=== PATIENT | female | born 1965 | race Caucasian/White ===

== ENCOUNTER → 2017-05-04 15:02 | Outpatient (POV) | payer OTHER, SELFPAY | PROVIDERS: Family Provider Family Medicine; PCP Family Medicine; Visit Provider Dermatology | DX: Z00.00 Encounter for general adult medical examination without abnormal findings (principal) ==

== ENCOUNTER → 2017-07-14 07:50 | Outpatient (CLI) | payer OTHER, SELFPAY ==
[2017-07-14 10:13] LABS: Creatine Kinase 66 U/L (26-192)
[2017-07-14 11:37] LABS: Erythrocyte Sedimentation Rate 8 mm/hr (0-30)
[2017-07-16 06:28] LABS: Deamidated Gliadin Abs, IgA 26 units (0-19); Deamidated Gliadin Abs, IgG 3 units (0-19); Folate 17.6 ng/mL (>3.0); Tissue Transglutaminase IgA Ab <2 U/mL (0-3); Tissue Transglutaminase IgG Ab <2 U/mL (0-5); Vitamin B12 608 pg/mL (232-1245)
[2017-07-18 15:15] LABS: Endomysial IgA Antibody Negative (Negative); Saccharomyces cerevisiae, IgA <20.0 Units (0.0-24.9); Saccharomyces cerevisiae, IgG 25.8 Units (0.0-24.9)
[2017-07-18 15:16] LABS: Antinuclear Antibodies, IFA Negative (.)
[2017-07-20 06:30] LABS: Reticulin IgA Antibody Negative titer (Neg:<1:2.5)
[2017-07-20 13:31] LABS: HLA-B27 Negative (.)
== END ==
PROVIDERS: Visit Provider Internal Medicine Rheumatology
DX: K59.00 Constipation, unspecified (principal); M25.50 Pain in unspecified joint; M79.7 Fibromyalgia; R53.83 Other fatigue
CPT/HCPCS: 36415; 82550; 82607; 82652; 82746; 83516; 85651; 86038; 86255; 86256; 86671; 86812

== ENCOUNTER → 2017-07-21 13:22 | Outpatient (CLI) | payer OTHER, SELFPAY ==
--- NOTE | 2017-07-21 | XR_ITS ---
XR sacroiliac joint BI min 3V CLINICAL INDICATION: ITS.REASON: BILATERAL PAIN ORDERING PHYSICIAN: Fransisca Lewis PATIENT AGE: 51 years Comparison: None FINDINGS: The SI joints have an unremarkable appearance. No evidence of effusion, sclerosis, or lytic lesion. IMPRESSION: Negative SI joints
== END ==
PROVIDERS: PCP Family Medicine; Visit Provider Internal Medicine Rheumatology
DX: M54.9 Dorsalgia, unspecified (principal)
CPT/HCPCS: 72202

== ENCOUNTER → 2018-02-08 15:24 | Outpatient (CLI) | payer OTHER, SELFPAY ==
[2018-02-11 05:33] LABS: Vitamin D 25 Hydroxy 18.9 ng/mL (30.0-100.0)
[2018-02-11 05:34] LABS: Estradiol 44.6 pg/mL (.); LH 36.6 mIU/mL (.)
== END ==
PROVIDERS: Visit Provider Nurse Practitioner Obstetrics & Gynecology
DX: R53.82 Chronic fatigue, unspecified (principal); Z01.419 Encounter for gynecological examination (general) (routine) without abnormal findings
CPT/HCPCS: 36415; 82652; 82670; 83001; 83002

== ENCOUNTER 2018-03-09 15:00 | Outpatient (RCR) | payer OTHER, SELFPAY ==
--- NOTE | 2018-01-05 16:38 | HMH.OTOPEV ---
OT Inpatient Evaluation Rehab OT Outpatient Eval Start: 01/05/18 16:17 Freq: Status: Active Protocol: Document 01/05/18 16:17 RMIRVIN (Rec: 01/05/18 16:37 [id number] Electronically Signed By Marino Espinoza OT 01/05/18 16:17 Outpatient Therapy Subjective History Subjective History Pt seen this date for initial evaluation to right thumb. Pt began having pain in 2014 and was soon diagnosed with CMC joint arthritis. Pt continues to have pain, decreased strength, and decreased AROM of right thumb. Pt is right hand dominant and has a decreased link trainer strength compared to left/non dominant hand. Pt has received injections at cmc joint in previous years, but does not feel the injections have helped symptoms. Pt will continue to be seen in order to address these deficits to increase functional use of right hand/thumb. Chief Complaint Pain Stiff Weakness Decreased Corporation Officer Strength Symptom Type Ache Throb Sharp Stabbing Burning Tingling Shooting Symptoms Relieved By Nothing Symptoms Aggravated By Physical Activity Lifting Prior Functional Limitations None Current Functional Limitations Lifting Housework Driving Sleeping Recreation Activity Symptom Description Constant but Variable Level of pain today (0-10) 4 Pain scale - at its best (0-10) 2 Pain scale - at its worst (0-10) 8 Wrist/Hand Eval Thumb Range of Motion Right Thumb Metacarpophalangeal Flexion Active 50 degrees Range of Motion (degrees) Thumb Metacarpophalangeal Extension 0 degrees Active Range of Motion (degrees) Thumb Palmar Abduction (Carpometacarpal 60 degrees Flex) Active Range (degrees) Thumb Interphalangeal Flexion Active 85 degrees Range of Motion (degrees) Thumb Interphalangeal Extension Active
== END 2018-03-09 15:05 | disposition home or self-care (01) ==
LOC: OT 15:00
PROVIDERS: Visit Provider Orthopaedic Surgery
DX: M25.541 Pain in joints of right hand (principal)
CPT/HCPCS: 97014; 97018; 97035; 97110; 97140; 97165; G0283

== ENCOUNTER → 2018-05-08 16:45 | Outpatient (CLI) | payer OTHER, SELFPAY ==
--- NOTE | 2018-05-08 16:51 | XR_ITS ---
EXAM: XR cervical spine 5V HISTORY: ITS.REASON: NECK PAIN ORDERING PHYSICIAN: Yenifer Dillard PATIENT AGE: 52 years COMPARISON: None FINDINGS: Normal alignment. No fracture or dislocation. No lytic or blastic change. There is mild degenerative disc disease at C4-C5 and C5-C6. Mild foraminal narrowing is present on the left at C6-C7. No cervical rib. IMPRESSION: Mild degenerative disc disease C4-C5 and C5-C6 with mild left-sided foraminal narrowing at C6-7
== END ==
PROVIDERS: PCP Family Medicine; Visit Provider Nurse Practitioner Family
DX: M54.2 Cervicalgia (principal)
CPT/HCPCS: 72050

== ENCOUNTER → 2018-05-24 15:07 | Outpatient (CLI) | payer OTHER, SELFPAY ==
--- NOTE | 2018-05-24 15:09 | MR_ITS ---
MR cervical spine wo/w con, MR 3-d myelogram/MRCP HISTORY: Neck pain and numbness ITS.REASON: NECK PAIN ORDERING PHYSICIAN: Yenifer Dillard PATIENT AGE: 52 years Comparison: 10/23/2015 TECHNIQUE: Standard multiplanar multiecho sequences are performed without contrast. 3-D MIP and myelographic images are also rendered and reviewed FINDINGS: There is normal alignment. The craniocervical junction has an unremarkable appearance. There is straightening of the cervical lordosis which may be due to patient positioning or muscle spasm. C2-C3: Unremarkable. C3-C4: There is a small broad-based central/left paracentral disc protrusion as before. There is borderline narrowing of the canal at 10 mm without cord flattening or impingement. C4-C5: Mild degenerative disc disease with bulging disc. There is a broad-based central left paracentral and foraminal disc protrusion with narrowing of the canal at 10 mm and mild left lateral recess and foraminal narrowing. No flattening of the cord and no significant change. C5-C6: Mild degenerative disc disease with mild concentric bulging disc. C6-C7: Degenerative disc disease. There is a small left paracentral disc protrusion with narrowing of the canal and left lateral recess and foraminal narrowing. This may be slightly more prominent on today's exam than when compared to the previous study. C7-T1: Unremarkable. There is a 1.5 cm lesion once again noted involving the T2 vertebral body is slightly hyperintense on T1 with central hypointensity on T1 and is hyperintense on T2 with central hypointense T2 signal. This is similar when compared to the previous study. This does demonstrate contrast enhancement and may be related to a hemangioma. This involves the central left aspect of the vertebral body. IMPRESSION: 1. Small broad-based central/left paracentral disc protrusion at C3-C4 with narrowing of the canal not significant changed 2. Broad-based central left paracentral foraminal disc protrusion at C4-C5 with narrowing of the canal not significant changed 3. Small left paracentral disc protrusion at C6-C7 which may be slightly more prominent 4 no change in the T1 and T2 hyperintense lesion at the T2 vertebral body consistent with a hemangioma
--- NOTE | 2018-05-24 16:03 | HMH.ITSHM ---
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 []TRINTELLIX TREIMET POTASSIUM
== END ==
PROVIDERS: PCP Family Medicine; Visit Provider Nurse Practitioner Family
DX: M54.2 Cervicalgia (principal)
CPT/HCPCS: 72141; 72156; 76376; A9576

== ENCOUNTER 2018-08-15 16:30 | Outpatient (RCR) | payer OTHER, SELFPAY ==
--- NOTE | 2018-05-25 16:44 | HMH.PTOPEV ---
PT Outpatient Evaluation Rehab PT Outpatient Evaluation Start: 05/25/18 16:04 Freq: Status: Active Protocol: Document 05/25/18 16:32 ESAU (Rec: 05/25/18 16:43 ESAU [id number]) Electronically Signed By Aníbal Baker, PT 05/25/18 16:32 Outpatient Therapy Subjective History Subjective History Patient is a 52 year old female presenting to outpatient PT with reports of chronic cervical spine pain of insidous onset starting approx 15 years ago that has progressively gotten worse over the past 2 months. Most recent diagnostics indicate C 3/4,4/5 and 6/7 disc bulges. Main complaint is aching/ numbness about CT junction migrating to the L side and up to sub-occipital mm. Pt reports hx of fibromyalgia and recent knee surgery. Chief Complaint Pain Spasms Paresthesia Symptom Type Ache Numbness Shooting Symptoms Relieved By Heat Symptoms Aggravated By Physical Activity Lifting Prior Functional Limitations None Current Functional Limitations Reaching Lifting Housework Desk Work/Reading Sleeping Recreation Activity Symptom Description Constant but Variable Level of pain today (0-10) 5 Pain scale - at its best (0-10) 2 Pain scale - at its worst (0-10) 5 Cervical Eval Palpation Cervical Muscles L Cervical Paraspinal L Suboccipital R CT Junction L CT Junction L Upper Trapezius L Thoracic Paraspinals Cervical/Thoracic Palpation Findings Tenderness Posture Head/C-Spine Posture Sitting Position C-Spine Flattened Flexibility Deficits Upper Trapezius Muscle Length (R) Mild Tightness (L) Mild Tightness Levaetor Scapulae Muscle Length (R) Mild Tightness (L) Mild Tightness Scalene Group Muscle Length (R) Mild Tightness (L) Mild Tightness Pectoralis Minor Muscle Length (R) Mild Tightness
--- NOTE | 2018-07-11 15:59 | HMH.PTOPEV ---
PT Outpatient Evaluation Rehab PT Outpatient Evaluation Start: 05/25/18 16:04 Freq: Status: Active Protocol: Document 05/25/18 16:32 ESAU (Rec: 05/25/18 16:43 ESAU [id number]) Electronically Signed By Aníbal Baker, PT 05/25/18 16:32 Outpatient Therapy Subjective History Subjective History Patient is a 52 year old female presenting to outpatient PT with reports of chronic cervical spine pain of insidous onset starting approx 15 years ago that has progressively gotten worse over the past 2 months. Most recent diagnostics indicate C 3/4,4/5 and 6/7 disc bulges. Main complaint is aching/ numbness about CT junction migrating to the L side and up to sub-occipital mm. Pt reports hx of fibromyalgia and recent knee surgery. Chief Complaint Pain,Spasms,Paresthesia Symptom Type Ache,Numbness,Shooting Symptoms Relieved By Heat Symptoms Aggravated By Physical Activity,Lifting Prior Functional Limitations None Current Functional Limitations Reaching,Lifting,Housework, Desk Work/Reading,Sleeping, Recreation Activity Symptom Description Constant but Variable Level of pain today (0-10) 5 Pain scale - at its best (0-10) 2 Pain scale - at its worst (0-10) 5 Cervical Eval Palpation Cervical Muscles L Cervical Paraspinal,L Suboccipital,R CT Junction,L CT Junction,L Upper Trapezius, L Thoracic Paraspinals Cervical/Thoracic Palpation Findings Tenderness Posture Head/C-Spine Posture Sitting Position C-Spine Flattened Flexibility Deficits Upper Trapezius Muscle Length (R) Mild Tightness,(L) Mild Tightness Levaetor Scapulae Muscle Length (R) Mild Tightness,(L) Mild Tightness Scalene Group Muscle Length (R) Mild Tightness,(L) Mild Tightness Pectoralis Minor Muscle Length (R) Mild Tightness,(L) Mild Tightness Passive Joint Mobility Cervical PIVM WNL: R OA L OA R AA L AA R C2/3 L C2/3
== END 2018-08-15 16:35 | disposition home or self-care (01) ==
LOC: PT 16:30
PROVIDERS: Visit Provider Nurse Practitioner Family
DX: M54.2 Cervicalgia (principal)
CPT/HCPCS: 97010; 97012; 97014; 97035; 97110; 97140; 97163; 97164; G0283

== ENCOUNTER → 2018-08-22 14:57 | Outpatient (CLI) | payer OTHER, SELFPAY ==
[2018-08-24 17:11] LABS: Measles Antibodies, IgG 36.4 AU/mL (Immune >29.9); Rubella Antibodies, IgG 4.88 index (Immune >0.99)
== END ==
PROVIDERS: Visit Provider Family Medicine
DX: Z01.84 Encounter for antibody response examination (principal)
CPT/HCPCS: 36415; 86735; 86762; 86765

== ENCOUNTER → 2018-09-20 12:54 | Outpatient (POV) | payer OTHER, SELFPAY | PROVIDERS: Visit Provider Neurological Surgery | DX: Z00.00 Encounter for general adult medical examination without abnormal findings (principal) ==

== ENCOUNTER → 2018-10-31 15:29 | Outpatient (CLI) | payer OTHER, SELFPAY ==
--- NOTE | 2018-10-31 15:31 | MR_ITS ---
PROCEDURE: MR HEAD/BRAIN WO CON CLINICAL INDICATION: OTHER HEADACHE SYNDROME Severe headache with visual disturbance COMPARISON: [facility] MRI-BRAIN WITH/WITHOUT from 04/16/2012 TECHNIQUE: Routine multiplanar multi echo sequences are performed without gadolinium enhancement. FINDINGS: No midline shift, mass effect, intracranial hemorrhage, or hydrocephalus is evident. No evidence of acute infarction. The the cerebellopontine angles, cerebellum, and brainstem are unremarkable. There is normal maravilla-white matter differentiation. The pituitary is somewhat prominent no mastoid effusion or sinus air-fluid level. And has a superior convex margin. This is not significantly changed compared to the previous exam. No obvious mass is evident. No compression upon the optic chiasm. The cranial cervical junction has an unremarkable appearance IMPRESSION: No acute finding with no significant change. Dictated by: Demond Maier MD 11/01/2018 11:19 Signed by: <Electronically signed by Demond Maier MD in [place]> 11/01/2018 11:19
== END ==
PROVIDERS: PCP Family Medicine; Visit Provider Specialist
DX: G44.89 Other headache syndrome (principal)
CPT/HCPCS: 70551

== ENCOUNTER → 2018-11-15 16:31 | Outpatient (CLI) | payer OTHER, SELFPAY ==
--- NOTE | 2018-11-15 16:32 | XR_ITS ---
PROCEDURE: XR KNEE LT 4V CLINICAL INDICATION: left knee pain COMPARISON: [id number] KNEE-4 OR 5 VIEWS-LT from 09/13/2016 FINDINGS: No fracture or dislocation. No lytic or blastic change. There is normal mineralization. There are osteoarthritic changes involving all 3 compartments greatest at the medial compartment and patellofemoral joint. There are osteophytes noted at the patella as well as the distal femur and proximal tibia. IMPRESSION: Osteoarthritis of the left knee overall not significantly changed Dictated by: Demond Maier MD 11/15/2018 17:19 Electronically signed by Demond Maier MD in [place] 11/15/2018 17:19
== END ==
PROVIDERS: PCP Family Medicine; Visit Provider Orthopaedic Surgery
DX: M25.562 Pain in left knee (principal)
CPT/HCPCS: 73564

== ENCOUNTER → 2018-12-19 15:45 | Outpatient (CLI) | payer OTHER, SELFPAY ==
[2018-12-19 17:19] LABS: T4 (Thyroxine) 10.4 ug/dl (4.7-13.3); Thyroid Stimulating Hormone 2.18 uIU/ml (0.358-3.740)
== END ==
PROVIDERS: Visit Provider Family Medicine
DX: E03.9 Hypothyroidism, unspecified (principal)
CPT/HCPCS: 36415; 84436; 84443

== ENCOUNTER → 2018-12-28 07:49 | Outpatient (CLI) | payer OTHER, SELFPAY ==
--- NOTE | 2018-12-28 07:51 | CT_ITS ---
PROCEDURE: CT HEART W CALCIUM SCORE CLINICAL HISTORY: screening COMPARISON: No exams were available for comparison TECHNIQUE: Axial images obtained with sagittal and coronal reformats. All CT scans at the facility use one or more dose reduction, viz: automated exposure control, ma/kV adjustment per patient size (including targeted exams where dose is matched to indication, i.e. head), or iterative reconstruction technique. FINDINGS: Coronary artery calcium score is 0. No identifiable calcific atherosclerotic plaque evident. Very low cardiovascular disease risk. Incidental findings include mild thickening of the pericardium. There is bowel interposition in the left upper abdomen posteriorly and medially. Fibrotic or atelectatic changes are present in the right lung base IMPRESSION: 1. No identifiable calcific plaque with very low cardiovascular disease risk. 2. Incidental findings as described above Dictated by: eDmond Maier MD 12/29/2018 07:27 Electronically signed by Demond Maier MD in [place] 12/29/2018 07:27
== END ==
PROVIDERS: PCP Family Medicine; Visit Provider Internal Medicine Cardiovascular Disease
DX: Z13.6 Encounter for screening for cardiovascular disorders (principal)
CPT/HCPCS: 75571

== ENCOUNTER → 2019-02-15 15:05 | Outpatient (CLI) | payer OTHER, SELFPAY ==
--- NOTE | 2019-02-15 15:07 | XR_ITS ---
PROCEDURE: XR HAND RT MIN 3V CLINICAL INDICATION: right hand/thumb pain COMPARISON: [id number] HAND-RT 3 VIEWS from 09/01/2016 FINDINGS: No fracture or dislocation. No lytic or blastic change. There is normal mineralization. Osteoarthritic changes are present at the 1st metacarpal-carpal joint and at the 1st interphalangeal joint. There is mild lateral subluxation of the 1st metacarpal and there are cystic changes at the trapezium laterally Other findings:None. IMPRESSION: Osteoarthritis otherwise negative Dictated by: Demond Maier MD 02/15/2019 15:21 Electronically signed by Demond Maier MD in [place] 02/15/2019 15:21
== END ==
PROVIDERS: PCP Family Medicine; Visit Provider Orthopaedic Surgery
DX: M79.644 Pain in right finger(s) (principal)
CPT/HCPCS: 73130

== ENCOUNTER → 2019-02-22 11:20 | Outpatient (CLI) | payer OTHER, SELFPAY ==
--- NOTE | 2019-02-22 11:20 | IR_ITS ---
PROCEDURE: IR ARTHROGRAPHY STERIOD INJECT CLINICAL INDICATION: right thumb injection Right thumb pain COMPARISON: XR HAND RT MIN 3V from 02/15/2019 FINDINGS: Single image is submitted with the C-arm with the needle tip overlying the proximal aspect the 1st metacarpal at the radiocarpal joint region. Fluoroscopy time is 6 seconds. IMPRESSION: First metacarpal-carpal joint injection fluoroscopy assistance Dictated by: Demond Maier MD 02/22/2019 15:01 Electronically signed by Demond Maier MD in [place] 02/22/2019 15:01
--- NOTE | 2019-02-22 13:54 | P.PCN_ITS ---
[facility] [place] Procedure Note Procedure Note:: Date of Procedure: 02/22/2019 Pre-procedure diagnosis: First CMC joint arthritis, right thumb Post-procedure diagnosis: First CMC joint arthritis, right thumb Procedure: Fluoroscopy-guided intraarticular corticosteroid injection first CMC joint, right thumb Performed by: Geo Luevano MD Guillotine Operator/s: none Anesthesia: None Estimated Blood Loss: none Procedure Note: The patient presented to the radiology department and was prepared for the right thumb injection under fluoroscopic guidance. The consent form was reviewed and signed by both myself and the patient; all questions were answered. The patient's right hand was placed on the fluoroscopy table. The right hand was prepped in the usual sterile fashion with multiple chlorhexidine sticks. Timeout was performed as per protocol. Next, the fluoro machine was brought in over the patient?s right hand and a picture taken to confirm adequate visualization of the first CMC joint. I donned a pair of sterile surgical gloves; the remainder of the procedure was performed in a sterile fashion. After localizing the CMC joint under fluoroscopic guidance, a 25G needle was used to to inject the joint. Using fluoro, it was confirmed that the needle is advanced into the first CMC joint. A combination of 1.5 mg of betamethasone and 1 mL of 0.5 percent Marcaine was then injected into the first carpometacarpal joint, under aseptic precautions. After completion of the procedure, the needle was withdrawn and a sterile Band-Aid was applied over the puncture site. Patient tolerated the procedure well and there were no immediate complications. Patient reported very good pain relief within a few minutes after the injection. Specimens: none Condition/Disposition: good / home Complications: none
== END ==
PROVIDERS: PCP Family Medicine; Visit Provider Orthopaedic Surgery
DX: M13.841 Other specified arthritis, right hand (principal)
CPT/HCPCS: 20600; 77002

== ENCOUNTER → 2019-08-23 15:17 | Outpatient (CLI) | payer OTHER, SELFPAY ==
[2019-08-23 16:17] LABS: Chloride 105 mmol/L (98-107); Potassium 4.8 mmoL/L (3.5-5.1); Sodium 137 mmol/L (136-145)
[2019-08-23 16:20] LABS: Alanine Aminotransferase 25 U/L (12-78); Albumin Level 4.1 g/dl (3.5-5.0); Albumin/Globulin Ratio 1.5 (1.1-1.8); Alkaline Phosphatase 70 U/L (38-126); Anion Gap 8.8 mEq/L (5-15); Aspartate Amino Transferase 30 U/L (14-36); Bilirubin,Total 0.4 mg/dl (0.2-1.3); Blood Urea Nitrogen 16 mg/dl (7-17); Calcium 8.8 mg/dl (8.4-10.2); Carbon Dioxide 28 mmol/L (22.0-30.0); Estimated Glomerular Filt Rate 87 ml/min (>60); GFR (African American) 105 ML/MIN (>60); Globulin 2.7 g/dL (1.3-3.2); Glucose 104 mg/dl (74-100); Total Protein,Serum 6.8 g/dl (6.3-8.2)
[2019-08-23 16:21] LABS: Magnesium 2.3 mg/dl (1.6-2.3)
[2019-08-23 16:53] LABS: Thyroid Stimulating Hormone 1.69 uIU/mL (0.465-4.68)
== END ==
PROVIDERS: Visit Provider Physician Assistant
DX: R25.2 Cramp and spasm (principal)
CPT/HCPCS: 36415; 80053; 83735; 84443

== ENCOUNTER 2019-09-04 16:00 | Outpatient (RCR) | payer OTHER, SELFPAY ==
--- NOTE | 2019-08-05 17:46 | HMH.PTOPEV ---
PT Outpatient Evaluation Rehab PT Outpatient Evaluation Start: 08/05/19 17:12 Freq: Status: Active Protocol: Document 08/05/19 17:18 KLEVERKENNETH (Rec: 08/05/19 17:46 KLEVERKENNETH [id number]) Electronically Signed By Apollo Gonzalez, AB 08/05/19 17:18 Outpatient Therapy Subjective History Subjective History This is the initial Physical Therapy evaluation for Marci Salamanca. Pt is a 53 y/o female referred to PT for c/o LBP and SIJ pain. Pt reprots pain began insidiously in mar/apr. Pt reports pain has steadily increased over the last several months due to inability to get massage, chiro, and yoga regularly 2ndary to COVID shutdowns. Pt reports pain is in lumbosacral area, in her sitting bones and in peritoneal area. Chief Complaint Pain,Spasms,Stiff Symptom Type Ache,Throb,Sharp,Dull,Stabbing ,Shooting Symptoms Relieved By Heat,OTC Meds Symptoms Aggravated By Sitting,Standing,Bending/ Stooping,Physical Activity Prior Functional Limitations None Current Functional Limitations Housework,Desk Work/Reading, Sleeping Symptom Description Constant but Variable Level of pain today (0-10) 5 Pain scale - at its best (0-10) 5 Pain scale - at its worst (0-10) 8 Lumbopelvic Eval Posture Thoracic Spine Posture Standing Position Flexible Scoliosis on (R) Lumbar Spine Posture Standing Position Flexible Scoliosis on (L) Assistive device Assistive Devices None / NA Palapation tenderness bilateral thoracic spinal tenderness Yes lumbar spinal tenderness Yes paraspinal tenderness Yes buttock tenderness Yes Lumbar/Sacral Palpation Findings Tenderness,Spasm,Muscle Guarding Accessory Movement L-spine Vertebrae Accessory Movements Central P/A [place],Right P/A that Elicit Symptoms [place],Left P/A [place] L2 bilateral L3 bilateral L4 bilateral L5 bilateral S1 bilateral Range of Motion Lumbar Spine Active Flexion Range of 55 w/ pain Motion (degrees) Lumbar Spine Active Extension Range of 15 Motion (degrees) Left Lumbar Spine Lateral Flexion Active 15 Range of Robert
== END 2019-09-04 16:05 | disposition home or self-care (01) ==
LOC: PT 16:00
PROVIDERS: PCP Family Medicine; Visit Provider Physician Assistant
DX: M54.5 Low back pain (principal)
CPT/HCPCS: 20560; 20561; 97010; 97014; 97035; 97110; 97140; 97163; G0283

== ENCOUNTER → 2019-11-22 08:13 | Outpatient (CLI) | payer OTHER, SELFPAY ==
[2019-11-22 09:58] LABS: Chloride 105 mmol/L (98-107)
[2019-11-22 09:59] LABS: Potassium 4.7 mmoL/L (3.5-5.1); Sodium 139 mmol/L (136-145)
[2019-11-22 10:01] LABS: Alanine Aminotransferase 24 U/L (12-78); Albumin Level 3.8 g/dl (3.5-5.0); Albumin/Globulin Ratio 1.5 (1.1-1.8); Alkaline Phosphatase 61 U/L (38-126); Aspartate Amino Transferase 27 U/L (14-36); Bilirubin,Total 0.5 mg/dl (0.2-1.3); Blood Urea Nitrogen 18 mg/dl (7-17); Estimated Glomerular Filt Rate 74 ml/min (>60); GFR (African American) 90 ML/MIN (>60); Globulin 2.6 g/dL (1.3-3.2); Total Protein,Serum 6.4 g/dl (6.3-8.2)
[2019-11-22 10:02] LABS: Anion Gap 10.7 mEq/L (5-15); Calcium 8.8 mg/dl (8.4-10.2); Carbon Dioxide 28 mmol/L (22.0-30.0); Chol/HDL Ratio 3.1 (1-3.5); Cholesterol 188 mg/dl (140-200); Glucose 101 mg/dl (74-100); HDL Cholesterol 61 mg/dl (40-60); Triglycerides 166 mg/dl (30-150); VLDL Cholesterol 33 mg/dL (0-40)
[2019-11-22 10:11] LABS: C-Reactive Protein 2.8 mg/L (0-4)
[2019-11-22 10:13] LABS: Direct LDL Cholesterol 102.65 mg/dL (100-129)
[2019-11-22 10:17] LABS: Free T4 (Free Thyroxine) 0.98 ng/dl (0.78-2.19)
[2019-11-22 10:33] LABS: Thyroid Stimulating Hormone 2.15 uIU/mL (0.465-4.68)
--- NOTE | 2019-11-22 14:57 | XR_ITS ---
PROCEDURE: XR DEXA AXIAL SKELETON CLINICAL HISTORY: POSTMENOPAUSAL COMPARISON: No exams were available for comparison FINDINGS: The right hip BMD is 0.798 with a T-score of -0.5. The left hip BMD is 0.876 with a T-score of -0.5. The lumbar spine BMD is 1.118 with a T-score of 0.6. IMPRESSION: This patient is considered normal according to the World Health Organization criteria. Fracture risk is low. Based on these results a follow-up exam is recommended in 2 year. Dictated by: Demond Maier MD 11/22/2019 20:01 Demond Maier MD in [place] 11/23/2019 07:07
--- NOTE | 2019-11-22 14:58 | XR_ITS ---
PROCEDURE: XR PELVIS MIN 3V CLINICAL INDICATION: ACUTE BILATERAL LOW BACK PAIN W/O SCIATICA COMPARISON: No exams were available for comparison TECHNIQUE: XR Pelvis AP View FINDINGS: No fracture or dislocation is evident. No significant degenerative change. The symphysis pubis and the SI joints have an unremarkable appearance. There are bilateral tubal ligation clips present. IMPRESSION: No acute findings. Dictated by: Demond Maier MD 11/22/2019 16:01 Demond Maier MD in [place] 11/22/2019 16:01
--- NOTE | 2019-11-22 14:59 | XR_ITS ---
PROCEDURE: XR LUMBAR SPINE MIN 4V CLINICAL INDICATION: ACUTE BILATERAL LOW BACK PAIN W/O SCIATICA COMPARISON: CR XR HAND RT MIN 3V from 02/15/2019 FINDINGS: No fracture or dislocation. No lytic or blastic change. There is normal mineralization. There is degenerative disc disease at L2-L3. If there is an ununited ossification center of the left transverse process of L2 versus an old fracture nondisplaced. Degenerative disc disease also present at L5-S1. There is spina bifida occulta of L5. Other findings:None. IMPRESSION: Degenerative changes, no acute finding Dictated by: Demond Maier MD 11/22/2019 16:00 Demond Maier MD in [place] 11/22/2019 16:00
== END ==
PROVIDERS: Visit Provider Physician Assistant
DX: Z78.0 Asymptomatic menopausal state (principal); E03.9 Hypothyroidism, unspecified; M54.5 Low back pain; Z13.220 Encounter for screening for lipoid disorders
CPT/HCPCS: 36415; 72110; 72190; 77080; 80053; 80061; 84439; 84443; 86140

== ENCOUNTER → 2020-02-06 15:19 | Outpatient (CLI) | payer OTHER, SELFPAY ==
--- NOTE | 2020-02-06 15:21 | MR_ITS ---
PROCEDURE: MR LUMBAR SPINE WO CON CLINICAL INDICATION: SACROILITIS LOW BACK PAIN X6 MONTHS, COMPARISON: CR XR LUMBAR SPINE MIN 4V from 11/22/2019 TECHNIQUE: Standard multiplanar multiecho sequences are performed without contrast. 3-D MIP and myelographic images are also rendered and reviewed FINDINGS: There is mild lumbar curvature convex right. L1-L2: Unremarkable. L2-L3: Mild degenerative disc disease with minimal bulging disc. L3-L4: Mild facet and ligamentum hypertrophy. L4-5: Mild bulging disc with mild facet and ligamentum hypertrophy with mild bilateral foraminal narrowing. L5-S1: Degenerative disc disease with minimal bulging disc along with mild facet and ligamentum hypertrophy. No extruded herniated disc or canal stenosis. There is a 3.5 cm left renal cyst. IMPRESSION: Mild degenerative changes. Please see above for detailed description at each level. No extruded herniated disc or canal stenosis Dictated by: Demond Maier MD 02/08/2020 21:42 Demond Maier MD in [place] 02/08/2020 21:42
== END ==
PROVIDERS: PCP Family Medicine; Visit Provider Family Medicine
DX: M46.1 Sacroiliitis, not elsewhere classified (principal)
CPT/HCPCS: 72148; 76376

== ENCOUNTER 2020-02-08 19:12 | Emergency (ER) | payer OTHER, SELFPAY ==
[2020-02-08 19:39] VITALS: BP 124/88; PULSE 104; RESP 15; TEMP 36.8; O2SAT 96; BMI 26.5
--- NOTE | 2020-02-08 19:47 | HMH.EDUTC ---
[facility] [place] Disposition Clinical Impression: Upper respiratory infection, viral Disposition: Home, Self-Care Condition on Discharge: Good Instructions: DI for Viral Upper Respiratory Infection -- Adult Additional Instructions: isolate until test results are known No sign of a bacterial infection. Likely viral. Viruses can take 7-14 days to run their course. Nasal saline and bulb syringe or nose Ayana to remove nasal drainage to help with nasal congestion. Hard to eat, drink, sleep with nasal congestion so important to keep this cleaned out. Monitor temp. Tylenol or Motrin as needed for pain or fever Encourage fluids, water, Gatorade, Powerade, Pedialyte if /toddler/child Warm salt water gargles Warm fluids Sore throat lozenges Sleep elevated Humidifier/vaporizer Your covid swab was sent. These results are typically sent to the primary care. Be sure you follow-up in 2-3 days if no improvement so we can review the results. Follow-up immediately for new or worsening symptoms or no noticeable improvement over the next 48-72 hours. Referrals: Tim Nuñez MD [Primary Care Provider] - Time of Disposition: 19:51 Medical Decision Making - Mele Inquiry Pt receiving controlled substance: No Vital Signs: 02/08/20 19:39 Temperature 98.3 F Temperature Source Oral Pulse Rate [Right Brachial] 104 H Respiratory Rate 15 Blood Pressure [Right Arm] 124/88 Blood Pressure Mean [Right Arm] 100 Blood Pressure Source [Right Arm] Automatic Cuff Blood Pressure Position [Right Arm] Sitting 02 Sat by Pulse Oximetry 96 Oxygen Delivery Method Room Air Orders (Tests/Meds): ORDERS Category Date Time Status Covid-19 Nasal PCR ([facility]) Routine Lab 02/08/20 19:45 Ordered [facility] [place] HPI - General Chief complaint: Urgent Treatment Center Stated complaint: covid exposure Time Seen by Provider: 02/08/20 19:48 Mode of Arrival: Ambulatory Source of Information: Patient Limitations: No Limitations Description of Symptoms (Recalled from Triage Doc. by RN): PATIENT C/O COUGH SINCE MONDAY/MONDAY, AND HEAD/BACK ACHE AND FEVER SINCE THIS MORNING. REPORTS COVID EXPOSURE HEENT Symptoms (Recalled from RN notes): Yes Resp Symptoms (Recalled from RN notes): Yes Skin Symptoms (Recalled from RN notes): No MS Symptoms (Recalled from RN notes): No Functional Status (Recalled from RN notes): WNL - History of Present Illness Provider Complaint: 54 yr old female presnets for nasal congestion, sore throat, headache, chills,body aches and low grade fever. - Related Data Home Medications Medication Instructions Recorded Confirmed cetirizine 10 mg tablet 10 mg PO DAILY 02/07/18 10/03/19 vortioxetine 20 mg tablet PO 30 Days #30 tab 02/07/18 07/30/19 levothyroxine 25 mcg tablet PO #90 tab 10/15/18 10/03/19 aspirin 81 mg tablet,delayed 81 mg PO DAILY 07/30/19 10/03/19 release cyclobenzaprine 5 mg tablet 5 mg PO tab 07/30/19 10/03/19 magnesium chloride 71.5 mg 143 mg PO QHS tab 07/30/19 07/30/19 (magnesium chloride) tablet,delayed release potassium chloride 10 mEq 10 meq PO cap 07/30/19 07/30/19 capsule,extended release Previous Rx's Medication Instructions Recorded estradiol 1 mg tablet 1 mg PO DAILY #30 tab 10/15/18 sumatriptan succinate 100 mg tablet 100 mg PO Q2H PRN #10 tab 07/08/19 galcanezumab-gnlm 120 mg/mL 120 mg SQ QMONTH 30 Days #1 ml 10/03/19 subcutaneous pen injector Allergies Allergy/AdvReac Type Severity Reaction Status Date / Time Penicillins [PENICILLINS] Allergy Unknown I-HIVES Verified 10/03/19 15:36 - Worker's Comp Is this a Worker's Comp case?: No [facility] History - Hepatitis A Screen Drug use history?: No High risk sexual behaviors?: No History of sexually transmitted infection?: No Currently employed?: No Childcare worker?: No Do you have indoor plumbing?: Yes Do you have electricity?: Yes Attestation statement:: This patient has been screened for Hepatitis A risk fa
[2020-02-08 19:51] VITALS: BP 124/88; PULSE 104; RESP 15; TEMP 36.8; O2SAT 96
--- NOTE | 2020-02-09 09:23 | PC.NURSE ---
patient notified of positive covid results
== END 2020-02-08 19:55 | disposition home or self-care (01) ==
PROVIDERS: Emergency Provider Nurse Practitioner Family; PCP Family Medicine
DX: U07.1 COVID-19 (principal); F33.1 Major depressive disorder, recurrent, moderate; M79.7 Fibromyalgia; G43.709 Chronic migraine without aura, not intractable, without status migrainosus; Z90.710 Acquired absence of both cervix and uterus; Z79.899 Other long term (current) drug therapy
CPT/HCPCS: 99201; U0003

== ENCOUNTER 2020-04-16 10:00 | Outpatient (RCR) | payer OTHER, SELFPAY ==
--- NOTE | 2020-02-19 16:55 | HMH.PTOPEV ---
PT Outpatient Evaluation Rehab PT Outpatient Evaluation Start: 02/19/20 15:54 Freq: Status: Active Protocol: Document 02/19/20 16:36 ESAU (Rec: 02/19/20 16:55 ESAU [id number]) Electronically Signed By Aníbal Baker, PT 02/19/20 16:36 Outpatient Therapy Subjective History Subjective History Patient is a 54 year old female presenting to outpatient PT with reports of chronic LBP starting approximately 10 year ago that has progressively gotten worse over the past month. Previous episodes of PT have probvided some signicant relief. Patient presents with true LLD R approx 3 cm. Reduced symptoms with introduction of heel lift R. Most recent imaging indicates multi-level mild bulging discs and mild DDD. Comorbidities include hx of COVID-19, c- section and hysterectomy. Chief Complaint Pain Symptom Type Ache,Throb Symptoms Relieved By Heat,OTC Meds Prior Functional Limitations Lifting,Sitting,Bending/ Stooping Current Functional Limitations Lifting,Sitting,Bending/ Stooping Symptom Description Constant but Variable Level of pain today (0-10) 5 Pain scale - at its best (0-10) 5 Pain scale - at its worst (0-10) 8 Lumbopelvic Eval Posture Thoracic Spine Posture Standing Position Neutral Lumbar Spine Posture Standing Position Decreased Lordosis Assistive device Assistive Devices None / NA Palapation tenderness bilateral Lumbar/Sacral Palpation Findings Tenderness Lumbar/Sacral Palpation Overall Comment B SIJ 3/4 Accessory Movement L4 bilateral L5 bilateral S1 bilateral Range of Motion Lumbar Spine Active Flexion Range of WNL Motion (degrees) Lumbar Spine Active Extension Range of WNL Motion (degrees) Left Lumbar Spine Lateral Flexion Active 16 Range of Motion (degrees) Right Lumbar Spine Lateral Flexion 18 Active Range of Motion (degrees) Manual Muscle Test Bilateral Knee Extension Strength Grade 5 Normal Knee Flexion Strength Grade 5 Normal Hip Flexion Strength Grade 5 Normal Extensor Hallucis Longus Strength Grade 5 Normal Ankle Dorsiflexion Strength Grade 5 Normal Gastronemius/Soleus Strength Grade 5
--- NOTE | 2020-03-27 15:46 | HMH.RHREAS ---
Rehab Reassessment Rehab OP Re-assessment Start: 03/27/20 15:31 Freq: Status: Active Protocol: Document 03/27/20 15:35 ESAU (Rec: 03/27/20 15:46 ESAU [id number]) Electronically Signed By Aníbal Baker, PT 03/27/20 15:35 Rehab Re-assessment Subjective Subjective Patient reports 50% improvement since start of care. Objective Objective Notes AROM: flx WNL; ext WNL; SBl 14 ; SBr 19 MMT: WNL Pain: today 4; best 4; worst 8 Neuro WNL Assessment Progress Assessment Progressing as Expected Assessment Notes Patient is tolerating progression well. She continues to intermittent exacerbations of B SIJ and posterior hip mm pain. SIJ special tests have been negative since introduction of heel lift. Rx has consistent primarily of dry needling to the posterior hip mm, as well as core stabilization exercises. Patient reports more significant improvement since progression of core stabiliztion exercises. Her main complaint continues to be pain with and prolonged sitting activies. Patient goals met STG 2 Goals Not Met All others Revised Goals NA Plan Plan Continue with POC. Frequency of Therapy 2x/week Duration of therapy 4 weeks. Time and Billing Re-Eval Time 15 Re-Eval Billing Units 1 PHYSICIAN CERTIFICATION: I certify the specified therapy services for Marci Salamanca are required, authorized, and reviewed every 30 days.
== END 2020-04-16 10:05 | disposition home or self-care (01) ==
LOC: PT 10:00
PROVIDERS: PCP Family Medicine; Visit Provider Family Medicine
DX: M46.1 Sacroiliitis, not elsewhere classified (principal)
CPT/HCPCS: 20561; 97010; 97014; 97033; 97035; 97110; 97140; 97163; 97164; G0283

== ENCOUNTER → 2020-05-08 15:27 | Outpatient (CLI) | payer OTHER, SELFPAY ==
--- NOTE | 2020-05-08 15:27 | MM_ITS ---
PROCEDURE: MM DIG SCREENING MAMM BI W/CAD Digital Breast Tomosynthesis Included CLINICAL INDICATION: Screening Mammorgram There is a history of breast cancer in the patient's mother and maternal and paternal grandmother and maternal aunt. There has been a previous biopsy right breast for benign disease. COMPARISON: MG DMSB DIG MAMM-SCREEN JOZEF from 11/27/2015 MG DMSB DIG MAMM-SCREEN JOZEF W/CAD from 02/17/2017 TECHNIQUE: Standard CC and MLO images and 3D Tomosynthesis was obtained. R2 CAD reviewed. FINDINGS: Moderate diffuse somewhat heterogenic fibroglandular densities are seen throughout both breast and the findings are fairly symmetrical bilaterally. There are no CAD markings. There are couple of benign-appearing microcalcifications right breast. There is no suspicious lesion in either breast and no suspicious microcalcifications. IMPRESSION: Moderate diffuse breast density with no suspicious lesions seen BI-RAD Category: 2 Benign Finding(s) FOLLOW-UP: 1YR 1 Year Follow-up (A letter has been sent to the patient regarding results of the study.) Dictated by: Dr. Adarsh Perry MD 05/16/2020 08:33 Dr. Adarsh Perry MD in [place] 05/16/2020 08:33
== END ==
PROVIDERS: PCP Family Medicine; Visit Provider Nurse Practitioner Obstetrics & Gynecology
DX: Z12.31 Encounter for screening mammogram for malignant neoplasm of breast (principal)
CPT/HCPCS: 77063; 77067

== ENCOUNTER → 2020-05-19 16:39 | Outpatient (CLI) | payer OTHER, SELFPAY ==
[2020-05-19 17:43] LABS: D-Dimer 0.84 ug/mL (0.0-0.5)
== END ==
PROVIDERS: Visit Provider Internal Medicine Pulmonary Disease
DX: R06.00 Dyspnea, unspecified (principal); R53.83 Other fatigue; Z86.16 Personal history of COVID-19
CPT/HCPCS: 36415; 85378

== ENCOUNTER → 2020-05-21 12:54 | Outpatient (CLI) | payer OTHER, SELFPAY ==
--- NOTE | 2020-05-21 12:54 | NM_ITS ---
PROCEDURE: NM PUL VENT AND PERFUSE CLINICAL INDICATION: dimer Elevated D-dimer, history of Covid19 COMPARISON: No exams were available for comparison TECHNIQUE: Dose 35.0 mCi technetium DTPA inhaled and 8.25 mCi technetium MAA IV FINDINGS: There is normal radiopharmaceutical distribution in both the ventilation and perfusion images. No evidence pulmonary embolus. IMPRESSION: Normal ventilation perfusion study Dictated by: Demond Maier MD 05/22/2020 09:16 Demond Maier MD in [facility] 05/22/2020 09:16
--- NOTE | 2020-05-21 13:52 | XR_ITS ---
PROCEDURE: XR CHEST 2V CLINICAL HISTORY: sob Shortness of breath COMPARISON: NM NM PUL VENT AND PERFUSE from 05/21/2020 FINDINGS: The cardiomediastinal silhouette and pulmonary vascularity are within normal limits. The lungs are clear without infiltrates, suspicious nodules, or pleural effusions. No acute bony abnormalities. IMPRESSION: No acute findings. Dictated by: Demond Maier MD 05/21/2020 17:36 Demond Maier MD in [place] 05/21/2020 17:36
== END ==
PROVIDERS: PCP Family Medicine; Visit Provider Internal Medicine Pulmonary Disease
DX: R06.02 Shortness of breath (principal); R79.89 Other specified abnormal findings of blood chemistry; J06.9 Acute upper respiratory infection, unspecified
CPT/HCPCS: 71046; 78582; A9540; A9567

== ENCOUNTER → 2020-06-11 12:59 | Outpatient (CLI) | payer OTHER, SELFPAY | PROVIDERS: PCP Family Medicine; Visit Provider Internal Medicine Pulmonary Disease | DX: R06.00 Dyspnea, unspecified (principal) | CPT/HCPCS: 93306 ==

== ENCOUNTER → 2020-06-26 11:55 | Outpatient (CLI) | payer OTHER, SELFPAY | PROVIDERS: PCP Family Medicine; Visit Provider Internal Medicine Pulmonary Disease | DX: R06.00 Dyspnea, unspecified (principal) | CPT/HCPCS: 94060; 94726; 94729 ==

== ENCOUNTER → 2020-07-10 14:58 | Outpatient (CLI) | payer OTHER, SELFPAY ==
--- NOTE | 2020-07-10 15:01 | XR_ITS ---
PROCEDURE: XR KNEE LT 4V CLINICAL INDICATION: left knee pain COMPARISON: CR [id number] KNEE-4 OR 5 VIEWS-LT from 09/13/2016 CR XR KNEE LT 4V from 11/15/2018 FINDINGS: Moderate osteoarthritic changes are present at the medial compartment and patellofemoral joint. No acute fracture or dislocation. No lytic or blastic change. Other findings:None. IMPRESSION: Moderate osteoarthritis which has slightly progressed compared to the previous exam Dictated by: Demond Maier MD 07/10/2020 15:19 Demond Maier MD in [place] 07/10/2020 15:19
== END ==
PROVIDERS: PCP Family Medicine; Visit Provider Orthopaedic Surgery
DX: M17.12 Unilateral primary osteoarthritis, left knee (principal)
CPT/HCPCS: 73564

== ENCOUNTER → 2020-08-07 14:06 | Outpatient (CLI) | payer OTHER, SELFPAY ==
--- NOTE | 2020-08-10 11:15 | PC.NURSE ---
PATIENT TOOK HST DEVICE AND USED 1 NIGHT - NOT ENOUGH DATA ON DEVICE TO UPLOAD - NO CHARGE TO PATIENT....
== END ==
PROVIDERS: PCP Family Medicine; Visit Provider Internal Medicine Pulmonary Disease
DX: G47.19 Other hypersomnia (principal)

== ENCOUNTER 2020-12-29 09:28 | Emergency (ER) | payer OTHER, SELFPAY ==
[2020-12-29 09:29] VITALS: BP 140/77; PULSE 82; RESP 16; TEMP 36.5; O2SAT 94; O2SAT 97; BMI 26.9
--- NOTE | 2020-12-29 09:56 | HMH.EDUTC ---
[facility] [place] Disposition Clinical Impression: Bronchitis, Yeast dermatitis Sinusitis Qualifiers: Sinusitis location: unspecified location Chronicity: unspecified Qualified Code(s): J32.9 - Chronic sinusitis, unspecified Disposition: Home, Self-Care Condition on Discharge: Good Instructions: Sinusitis, Acute Bronchitis, DI for Sinusitis Additional Instructions: ? Start antibiotic today. Be sure to complete entire prescription even if feeling better ? Monitor temp. Tylenol every 4 hours as needed and / or ibuprofen every 6 hours as needed ( As long as your primary care physician has told you that it ok to take both. For fever/aches/pains ER if no less than 101 despite Tylenol or Motrin ? Humidifier/vaporizer or hot steamy shower ? Inhaler every 4-6 hours as needed like we discussed. If unsure how to use it, ask pharmacist to demonstrate how. Should help open airways and improve cough, wheezing, and shortness of breath *Tessalon Perles will not cause drowsiness but use at bedtime to help stop cough so that you may get some rest. Follow up IMMEDIATELY for new or worsening of symptoms OR no noticeable improvement over the next 48-72 hours. 911 immediately for any life threatening symptoms such as chest pain or difficulty breathing Prescriptions: Doxycycline Monohydrate [Doxycycline [place] 100mg Tab] 100 mg PO Q12 7 Days #14 tab Transmission Status: Received by [facility] Fluticasone Propionate [Flonase 50mcg nasal spray 16gm] 1 spr NS DAILY #1 each Transmission Status: Received by [employer] Nystatin [Nystatin Topical Powder 30GM*] 1 applicatio TP BID #30 g Transmission Status: Received by [employer] [employer] Benzonatate [Tessalon Perle 100mg Cap*] 100 mg PO TID PRN #30 cap PRN Reason: Cough Transmission Status: Received by [employer] Referrals: Tim Nuñez MD [Primary Care Provider] - As needed Forms: Work/School Release Time of Disposition: 10:17 Medical Decision Making - Mele Inquiry Pt receiving controlled substance: No Mele was queried for this patient: No Vital Signs: 12/29/20 09:29 12/29/20 10:06 Temperature 97.7 F 97.7 F Temperature Source Oral Pulse Rate 82 Pulse Rate [Left Radial] 82 Respiratory Rate 16 18 Blood Pressure 140/77 Blood Pressure [Right Arm] 140/77 Blood Pressure Mean [Right Arm] 98 Blood Pressure Source [Right Arm] Automatic Cuff Blood Pressure Position [Right Arm] Sitting 02 Sat by Pulse Oximetry 97 Oxygen Delivery Method Room Air Room Air - Lab Data Lab results reviewed: Yes: I reviewed the patient's lab results. Lab Results 12/29/20 09:41: Strep Scn Rapid Clinic Negative 12/29/20 09:43: Chlamy pneumoniae PCR Not detected, Adenovirus (PCR) Not detected, B. pertussis DNA (PCR) Not detected, Coronavirus OC43 (PCR) Not detected, Coronavirus HKU1 (PCR) Not detected, Coronavirus 229E (PCR) Not detected, SARS-CoV-2 (PCR) Not detected, Coronavirus NL63 (PCR) Not detected, Human Metapneumovir PCR Not detected, Influenza A (H1) PCR Not detected, Influ A (H1N1/09) PCR Not detected, Influenza A (H3) PCR Not detected, Influenza Type A (PCR) Not detected, Influenza Type B (PCR) Not detected, M. pneumoniae (PCR) Not detected, Parainfluenza 1 (PCR) Not detected, Parainfluenza 2 (PCR) Not detected, Parainfluenza 3 (PCR) Not detected, Parainfluenza 4 (PCR) Not detected, RSV (PCR) Not detected, Entero/Rhino (PCR) Detected A Orders (Tests/Meds): ED MEDICATIONS Discontinued Medications Generic Name Dose Route Start Last Admin Trade Name Freq PRN Reason Stop Dose Admin Methylprednisolone Sodium Succinate 125 mg 12/29/20 10:13 12/29/20 10:16 Methylprednisolone Sod Succ 125mg Vial IM 12/29/20 10:14 125 mg ONCE ONE Administration ORDERS Category Date Time Status Strep Screen Confirmation Routine Micro 12/29/20 09:41 Received Medical Decision Narrative: Patient states that she has take solu medrol in the past without reactions
[2020-12-29 09:57] LABS: UTC Strep Screen (Rapid) Negative (Negative)
[2020-12-29 09:58] LABS: Adenovirus,PCR Not Detected (NotDetected); Bordetella Pertussis Not Detected (NotDetected); Chlamydophila Pneumoniae, PCR Not Detected (NotDetected); Coronavirus 19, PCR Not Detected (NotDetected); Coronavirus 229E Not Detected (NotDetected); Coronavirus NL63 Not Detected (NotDetected); Coronavirus OC43 Not Detected (NotDetected); Coronovirus HKU1,PCR Not Detected (NotDetected); Human Metapneumovirus Not Detected (NotDetected); Influenza A, PCR Not Detected (NotDetected); Influenza AH1, 2009 Not Detected (NotDetected); Influenza AH1, PCR Not Detected (NotDetected); Influenza AH3,PCR Not Detected (NotDetected); Influenza B, PCR Not Detected (NotDetected); Mycoplasma Pneumoniae, PCR Not Detected (NotDetected); Parainfluenza 1, PCR Not Detected (NotDetected); Parainfluenza 2, PCR Not Detected (NotDetected); Parainfluenza 3, PCR Not Detected (NotDetected); Parainfluenza 4, PCR Not Detected (NotDetected); Respiratory Syncytial Virus Not Detected (NotDetected)
[2020-12-29 10:06] VITALS: BP 140/77; PULSE 82; RESP 18; TEMP 36.5; O2SAT 97
[2020-12-29 12:12] LABS: Rhinovirus/Enterovirus Detected (NotDetected)
== END 2020-12-29 10:41 | disposition home or self-care (01) ==
PROVIDERS: Emergency Provider Nurse Practitioner; PCP Family Medicine
DX: J20.9 Acute bronchitis, unspecified (principal); J32.9 Chronic sinusitis, unspecified; B37.2 Candidiasis of skin and nail
CPT/HCPCS: 87581; 87632; 87798; 87880; 96372; 99203; C9803; G0463; U0003; U0005

== ENCOUNTER → 2021-03-11 07:50 | Outpatient (CLI) | payer OTHER, SELFPAY ==
--- NOTE | 2021-03-11 07:52 | XR_ITS ---
FINAL REPORT TECHNIQUE: Chest PA & Lateral CLINICAL HISTORY: cough FINDINGS: 2 views of the chest were performed. The heart size is normal. The mediastinum is within normal limits. There is no acute cardiopulmonary process. There are no pleural effusions. There is no pneumothorax. The bony thorax appears intact. IMPRESSION: No acute cardiopulmonary process. Reviewed, Interpreted and Dictated by Ruddy Mancilla MD Transcribed by George Hernandez Authenticated by Ruddy Mancilla MD on 03/11/2021 11:56:33 AM [facility]
[2021-03-11 11:19] LABS: Strep Scrn Group A (Rapid) Negative (Negative)
== END ==
PROVIDERS: PCP Family Medicine; Visit Provider Nurse Practitioner Family
DX: J02.9 Acute pharyngitis, unspecified (principal); R05.9 Cough, unspecified
CPT/HCPCS: 71046; 87430

== ENCOUNTER → 2021-07-20 14:53 | Outpatient (CLI) | payer OTHER, SELFPAY ==
--- NOTE | 2021-07-20 14:54 | MM_ITS ---
PROCEDURE INFORMATION: Exam: MG Bilateral Screening 3D Mammography Exam date and time: 07/20/2021 3:08 PM Age: 55 years old Clinical indication: Screening examination; Additional info: Screening mammogram. Family history of breast carcinoma. TECHNIQUE: Imaging protocol: Bilateral Screening tomosynthesis and 2D mammography including computer-aided detection (CAD) when performed. COMPARISON: 1. MG MM DIG SCREENING MAMM BI W/CAD 05/08/2020 3:27 PM 2. MG DMSB DIG MAMM-SCREEN JOZEF W/CAD 02/17/2017 11:23 AM 3. MG DMSB DIG MAMM-SCREEN JOZEF 11/27/2015 3:51 PM FINDINGS: MAMMOGRAPHY: Breast composition: There are scattered areas of fibroglandular density. Mass: No suspicious masses. Architectural distortion: No suspicious distortion. Calcifications: No suspicious calcifications. Asymmetric density: None. Skin thickening: None. Axillary adenopathy: None. IMPRESSION: No mammographic evidence of malignancy. Annual screening is recommended unless otherwise clinically indicated. Given the reported risk factors for this patient, a breast cancer risk assessment may prove useful for further evaluation. ASSESSMENT: BI-RADS Category 1: Negative
== END ==
PROVIDERS: PCP Nurse Practitioner Obstetrics & Gynecology; Visit Provider Nurse Practitioner Obstetrics & Gynecology
DX: Z12.31 Encounter for screening mammogram for malignant neoplasm of breast (principal)
CPT/HCPCS: 77063; 77067

== ENCOUNTER → 2022-08-05 08:26 | Outpatient (CLI) | payer OTHER, SELFPAY ==
--- NOTE | 2022-08-05 08:27 | MM_ITS ---
PROCEDURE INFORMATION: Exam: MG Bilateral Screening 3D Mammography Exam date and time: 08/05/2022 8:20 AM Age: 56 years old Clinical indication: Her mother, maternal grandmother, and maternal aunt had breast cancer. TECHNIQUE: Imaging protocol: Bilateral Screening tomosynthesis and 2D mammography including computer-aided detection (CAD) when performed. COMPARISON: 1. MG MM DIG SCREENING MAMM BI W/CAD 07/20/2021 3:08 PM 2. MG MM DIG SCREENING MAMM BI W/CAD 05/08/2020 3:27 PM 3. MG DMSB DIG MAMM-SCREEN JOZEF W/CAD 02/17/2017 11:23 AM 4. MG DMSB DIG MAMM-SCREEN JOZEF 11/27/2015 3:51 PM FINDINGS: MAMMOGRAPHY: Breast composition: There are scattered areas of fibroglandular density. Mass: None. Architectural distortion: None. Calcifications: No suspicious calcifications. Asymmetric density: None. Skin thickening: None. Axillary adenopathy: None. IMPRESSION: No mammographic evidence of malignancy. Annual screening is recommended unless otherwise clinically indicated. Given the reported risk factors coupled with the patient's breast density, a breast cancer risk assessment may prove useful for further evaluation. ASSESSMENT: BI-RADS Category 1: Negative
== END ==
PROVIDERS: PCP Family Medicine; Visit Provider Obstetrics & Gynecology
DX: Z12.31 Encounter for screening mammogram for malignant neoplasm of breast (principal)
CPT/HCPCS: 77063; 77067

== ENCOUNTER → 2022-10-19 15:08 | Outpatient (CLI) | payer OTHER, SELFPAY ==
--- NOTE | 2022-10-19 15:11 | XR_ITS ---
FINAL REPORT CLINICAL HISTORY: ACUTELOW PAIN PAIN , no known injury, pain x 3 weeks COMPARISON: None FINDINGS: 5 views of the lumbar spine were obtained. There is no evidence of fracture or dislocation. There is mild to moderate degenerative change in the lumbar spine. Vacuum phenomenon is present in the L5-S1 disc space. There is a mild right curvature of the lumbar spine. No paraspinous soft tissue abnormalities identified. IMPRESSION: No acute bony abnormality. Reviewed, Interpreted and Dictated by Tanvir Cruz III, MD Transcribed by Meri Barton Authenticated and [facility]
== END ==
PROVIDERS: PCP Physician Assistant; Visit Provider Physician Assistant
DX: M54.42 Lumbago with sciatica, left side (principal)
CPT/HCPCS: 72110

== ENCOUNTER 2024-01-08 09:01 | Outpatient (CLI) | payer OTHER, SELFPAY ==
--- NOTE | 2024-01-08 09:02 | MM_ITS ---
PROCEDURE INFORMATION: Exam: MG Bilateral Screening 3D Mammography Exam date and time: 01/08/2024 8:51 AM Age: 58 years old Clinical indication: Screening examination. TECHNIQUE: Imaging protocol: Bilateral Screening tomosynthesis and 2D mammography including computer-aided detection (CAD) when performed. COMPARISON: 1. MG MM DIG SCREENING MAMM BI W/CAD 08/05/2022 8:20 AM 2. MG MM DIG SCREENING MAMM BI W/CAD 07/20/2021 3:08 PM FINDINGS: MAMMOGRAPHY: Breast composition: There are scattered areas of fibroglandular density. Mass: None. Architectural distortion: None. Calcifications: No suspicious calcifications. Asymmetric density: None. Skin thickening: None. Axillary adenopathy: None. IMPRESSION: No mammographic evidence of malignancy. Annual screening is recommended unless otherwise clinically indicated. ASSESSMENT: BI-RADS Category 1: Negative.
--- NOTE | 2024-01-08 09:09 | XR_ITS ---
FINAL REPORT TECHNIQUE: Bone mineral density was calculated of the lumbar spine and hip. CLINICAL HISTORY: .post menopausal screening COMPARISON: 11/22/2019 FINDINGS: Using L1-4, the bone mineral density of the spine is1.159 g/cm2, corresponding to T-score of 1.0. Using the left hip, the bone mineral density of the femoral neck is 0.950 g/cm2, corresponding to a T-score of 0.9. Using the right hip, the bone mineral density of the femoral neck is 0.811 mg/cm?, corresponding to a T-score of -0.3 NOTE: T-score: Standard deviation compared with peak bone mass of young adult mean. *Following the recommendations of the International Society of Bone densitometry, classification of hip BMD is based on the lower of two T-scores; total hip or femoral neck. IMPRESSION: Normal bone mineral density of the lumbar spine and bilateral hips. Authenticated and ERN
== END 2024-01-08 23:59 | disposition home or self-care (01) ==
LOC: RAD 09:02
PROVIDERS: PCP Family Medicine; Visit Provider Obstetrics & Gynecology
DX: N95.1 Menopausal and female climacteric states (principal); Z12.31 Encounter for screening mammogram for malignant neoplasm of breast
CPT/HCPCS: 77063; 77067; 77080

== ENCOUNTER 2024-01-30 10:04 | Outpatient (CLI) | payer OTHER, SELFPAY ==
--- NOTE | 2024-01-30 10:07 | XR_ITS ---
FINAL REPORT CLINICAL HISTORY: TOE PAIN LT FOOT, 1ST DIGIT..dropped heater on toe 3 weeks ago FINDINGS: AP, oblique and lateral views of the left foot were obtained. There is no prior exam for comparison. There is a subacute fracture of the distal tuft of the great toe, which is nondisplaced. No other fractures are identified. There is no dislocation. 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 There is no acute soft tissue abnormality. IMPRESSION: Fracture of the distal tuft of the great toe, subacute. Reviewed, Interpreted and Dictated by Serina Brown MD Transcribed by Kadie Briceno Authenticated and [facility]
== END 2024-01-30 23:59 | disposition home or self-care (01) ==
LOC: RAD 10:05
PROVIDERS: PCP Family Medicine; Visit Provider Nurse Practitioner Family
DX: M79.675 Pain in left toe(s) (principal)
CPT/HCPCS: 73630

== ENCOUNTER 2024-10-02 11:15 | Outpatient (CLI) | payer OTHER, SELFPAY ==
--- OUTSIDE RECORDS SUMMARY | 2023-12-11 10:00 | XMS_ITS ---
Author Organization [facility] Address [address] [place] [id number] Care Team Providers Care Billiard Table Mechanic Name Role Phone Lynda Garvey Primary Care Provider Nat Nuñez Unavailable [phone] Gladys Dillard Unavailable [phone] Allergies Allergen (clinical drug ingredient) Drug/Non Drug Allergy documented on EMR Reaction Allergy Type Onset Date Status azithromycin Zithromax Unknown Drug Allergy Acti ve Results Component Value Reference Range Notes P-Comprehensive Metabolic Pa andrew (CMP) Reviewed date:12/13/2023 02:33:24 PM Interpretation:Normal Performing Lab: Notes/Report: Test performed by [employer] [address] [place] [address] , [address], [place] [address] Saúl Rodriguez MD, Ground Worker CLIA: [id number] Sodium 141 135-145 mmol/L Potassium 4.4 3.5-5.3 [...] Interpretation:1.00-normal Performing Lab: Notes/Report: Test performed by [employer] [address] [place] [address] , [place] [address] Saúl Rodriguez MD, Ground Worker CLIA: [id number] Thyroxine Free (free T4) 1.00 0.86-1.76 ng/dL P-Lipid Panel Reviewed date:12/13/2023 02:31:59 PM Interpretation:LDL 120; HDL65; TG225 Performing Lab: Notes/Report: Test performed by [employer] [address] , [address], [place] [address] Saúl Rodriguez MD, Ground Worker CLIA: [id number] Cholesterol 230 <200 mg/dL Triglycerides 225 <150 mg/dL HDL Cholesterol 65 >39 mg/dL Cholesterol / HDL Ratio 3.54 0.00-4.44 Ratio Non-HDL Cholesterol 165 <130 mg/dL LDL Cholesterol (Calculation) 120 <130 mg/dL LDL Cholesterol Levels* Less than 100 mg/dL Optimal 100 to 129 mg/dL Near Optimal/ Above Optimal 130 to 159 mg/dL Borderline High 160 to 189 mg/dL High 190 mg/dL and above Very High * Categories as recommended by the 2004 ATPIII guidelines LDL/HDL Ratio 1.8 <3.3 Ratio LDL Cholesterol Patient History Test Date: 09/05/2022 LDL Results: 122 Units: mg/dL % Change: - Test Date: 12/11/2023 LDL Results: 120 Units: mg/dL % Change: -1% P-TSH Reviewed date:12/13/2023 02:32:21 PM Interpretation:2.74 Performing Lab: Notes/Report: Test performed by [employer], [address] , [place] [address] Saúl Rodriguez MD, Ground Worker CLIA: [id number] TSH 2.74 0.43-5.25 mU/L REASON FOR VISIT [...] MG 1 cap(s) orally once daily Active Brick 3-5-6-7-9 Fatty Acids - as directed Orally [...] Status W/U Status Risk Notes Problem Arthritis (6832801) Arthritis (M19.90) Active confirmed Vital Signs Blood pressure systolic 130 mm Hg 12/11/19 24 Blood pressure diastolic 80 mm Hg 024 Heart Rate 89 /min 12/11/2023 Height 68.75 in 12/11/2023 Weight 170.0 lbs 12/11/2023 BMI 25.28 kg/m2 12/11/2023 Encounters Encounter Location Date Provider Diagnosis [facility] [address] [facility] [address] [place], [place] [id number] 12/11/2023 Gladys Dillard Depressive disorder F32.9 ; [...] osiel: Progress Notes * WIN FRANCISADOB:1965 ([age] yo F)Acc No.[id number]:12/11/2023 Progress Notes Patient: SANTOS PEARCE Provider: ZENA Robin :1965 A ge:57 Y S ex:Female Date:12/11/2023 Address:[address] [place] [address] ROBERTO Valente [id number] Pcp:Lynda Garvey Subjective: * Chief Complaints: * [...] Notes to Pharmacist: 1,000 mg daily, Taking Brick 3-5-6-7-9 Fatty Acids - Capsule as directed [...] * Images: Billing Information: * Visit Code: 60028 Office Visit, Est Pt., Level 4. * Procedure Codes: 65120 PULSE OX. * Electronic signature of Cherise Dillard APRN on 10/03/2024 at 11:44 AM EDT Sign off status: Pending * Provider: ZENA Robin Date: 1 Generated for Amelia morales/Lori/Jannet on: 0 10/03/2024 11:44 AM EDT History and Physical Notes * HPI (History [...]
--- OUTSIDE RECORDS SUMMARY | 2024-01-30 05:30 | XMS_ITS ---
Author Organization [facility] Address [address] [place] [id number] Care Team Providers Care Cilnical Scientist Name Role Phone Lynda Garvey Primary Care Provider [phone] Nat Nuñez Unavailable [phone] Gladys Dillard Unavailable [phone] Allergies Allergen (clinical drug ingredient) Drug/Non Drug [...] as directed Orally 1,000 mg daily Active Oakes 3-5-6-7-9 Fatty Acids - as directed Orally [...] [address] [place], [place] [id number] 01/30/2024 Gladys Dillard Toe pain, left M79.675 [...] Reason: Progress Notes * WIN FRANCISMICKIEB:1965 (4 0 yo F)Acc No.[id number]:01/30/2024 Progress Notes Patient: SANTOS PEARCE Provider: ZENA Robin :1965 A ge:58 Y S ex:Female Date:01/30/2024 Address:[address] [place] [address] [id number] Pcp:Lynda Garvey Subjective: * Chief [...] Notes to Pharmacist: 1,000 mg daily, Taking Oakes 3-5-6-7-9 Fatty Acids - Capsule as directed [...] * Images: Billing Information: * Visit Code: 46171 Office Visit, Est Pt., Level 3. * Procedure Codes: * Electronic signature of Cherise Dillard APRN on 10/03/2024 at 11:44 AM EDT Sign off status: Pending * Provider: ZENA Robin Date: 1 03/31/2023 Generated for Amelia morales/Lori/Jannet on: 0 10/03/2024 [...]
--- OUTSIDE RECORDS SUMMARY | 2024-08-19 10:30 | XMS_ITS | Encounter Summary ---
Author Organization [facility] ([place], [place], [place], [place]) Address [address] [place] [address] Care Team Providers Care Track Worker Name Role Phone Concha Cote DO Primary Care Provider [phone] Reason for Visit * Reason Comments Follow-up Encounter Details Date Type Department Care Team (Latest Contact Info) Description 08/19/2024 10:30 AM EDT Video - Telemedicine [facility] Care [address] [place] [address] Concha Cote DO [address] [place] [address] Encounter to discuss test results (Primary Dx); Hypothyroidism; Post menopausal syndrome; Joint pain Social History Tobacco Use Types Packs/Day Years Used Date Smoking Tobacco: Former Cigarettes 2 15 S tarted: 1980 Smokeless Tobacco: Never Tobacco Cessation:Counseling Given: Not Answered Alcohol Use Standard Drinks/Week Comments Not Currently 0 (1 standard drink = 0.6 oz pur e alcohol) [facility] - Mental Health Answer Date Recorde d Little interest or pleasure in doing things Not at all 08/18/2024 Feeling down, depressed, or hopeless Not at all 08/18/2024 Feeling of Stress Not on file 08/18/2024 Food Insecurity Answer Date Recorded Food run out past 12 months Not on file 03/06 Food did not last past 12 months Not on file 03/15/2023 Employment Answer Date Recorded Help finding and keeping a job Not on file 0 03/15/2023 Family and Community Support Answer Juwan e Recorded Help with Day to Day Activities Not on file 03/15/2023 Feeling Lonely or Isolated Not on file 03/15 Educational Attainment Answer Date Benito rded Speak language other than Croatian at home Not on file 03/15/2023 Want help with school or training Not on file 03/15/2023 Substance Use Answer Date Recorded Used prescription meds for non-medical reasons N ot on file 03/15/2023 Used illegal drugs past 12 months Not on file 03/15/2023 Comments No Sex and Gender Information Value Date Recorded Sex Assigned at Not on file Legal Sex Female 5:26 PM CDT Gender Identity Not on file Sexual Orientation Not on file documented as of this encounter Last Filed Vital Signs Vital Sign Reading Time Taken Comments Blood Pressure - - Pulse - - Temperature - - Respiratory Rate - - Oxygen Saturation - - Inhaled Oxygen Concentration - - Weight 81.2 kg (179 lb) 08/19/2024 10:44 AM EDT Height 172.7 cm (5' 8 ) 08/19/2024 10:44 AM EDT Body Mass Index 27.22 08/19/2024 10:44 AM EDT documented in this encounter Patient Instructions * Patient Instructions* Concha Cote DO - 08/19/2024 10:30 AM EDT Supplement recommendations: Red Yeast Rice + CoQ10 600mg (120 capsules) ([employer] Formulas): Please take 1 capsule x once per day/ anytime for 3 months. Take with food. Clinical Nutrients??? HP (60 capsules) (Integrative Therapeutics): Please take 2 capsules x once per day / anytime ongoing (placeholder for your MVI). Pregnenolone 30mg (60 capsules) (Pure Encapsulations): Please take 1 capsule in the evening for 2 months. Take with food (with a meal). K2+D3 (60 capsules) ([employer]rapeutics): Please take 1 capsule x once per day / anytime for 3 months. Take with food documented in this encounter Progress Notes * Concha Cote DO - 08/19/2024 10:30 AM EDT Type of Service: Office Visit via Telemedicine Subjective: Patient ID: Marci Salamanca is a 58 y.o. female. Telemedicine Informed Consent: Telemedicine Audio/Visual Informed Consent: The risks, benefits and alternatives to the virtual visit were explained to the patient, and the patient and/or caregiver verbally consented to this modality of care. The visit was carried out using secure real-time audio-visual technology, and all parties in the room were identified and approved by the patient prior to the consult. Unless noted otherwise, the provider was located at their usual clinic location, and the patient was at their place of residence. Any physical exam was assisted by the patient and/or a caregiver. Mode of Transmission: Telemedicine via two-way interactive audiovisual telecommunication Basis for Telemedicine: Patient request Others in Attendance: None PATIENT LOCATION (City, State, Facility Type): [address] [place] [id number] PROVIDER LOCATION ([facility], [facility], Facility Type): [facility] [address] [place] [address] [place] [address] Dept START TIME: 1049 STOP TIME: 1122 Chief Complaint Patient presents with Follow-up I have reviewed and/or updated the following: Tobacco Allergies Meds Problems Med Hx SurgHx Fam Hx HPI Marci Salamanca is a 58 y.o. female with active problems as below presents to clinic today for Follow-up No significant changes since last visit. Is not sleeping well, joint pain continues and is having hot flashes. Objective: Outpatient Medications Prior to Visit Medication Sig Dispense Refill cinnamon bark 500 mg capsule 1 cap(s) orally once daily cyclobenzaprine (FLEXERIL) 5 MG tablet TAKE ONE TABLET BY MOUTH THREE TIMES DAILY NEEDED MAY CAUSE DROWSINESS magnesium 200 mg tab Take by mouth. meloxicam (MOBIC) 15 MG tablet omega-3/dha/epa/dpa/fish oil (OMEGA-3 2100 ORAL) Take by mouth. potassium chloride (MICRO-K) 10 mEq CR capsule Take 1 capsule (10 mEq total) by mouth daily. turmeric, bulk, 95 % powd Take by mouth. UNKNOWN Ashwaganda 1000mg Boswellia 500mg Vitamin e 670mg Telugu Ginseng 100mg Meloxicam 15mg as needed. venlafaxine XR (EFFEXOR-XR) 75 MG 24 hr capsule Take 1 capsule (75 mg total) by mouth daily. levothyroxine (SYNTHROID) 25 MCG tablet Take 1 tablet (25 mcg total) by mouth daily. No facility-administered medications prior to visit. Physical Exam Constitutional: Appearance: Normal appearance. Normal weight. Not ill-appearing. HENT: Head: Normocephalic and atraumatic. Nose: Nose normal. Neurological: General: No focal deficit present. Mental Status: Alert and oriented to person, place, and time. Mental status is at baseline. Psychiatric: Mood and Affect: Mood normal. Behavior: Behavior normal. Thought Content: Thought content normal. Judgment: Judgment normal. Vitals: 08/19/24 1044 Weight: 81.2 kg (179 lb) Height: 1.727 m (5' 8 ) Body mass index is 27.22 kg/m??. Results: Office Visit on 07/16/2024 Component Date Value Ref Range Status WBC 07/24/2024 5.4 3.4 - 10.8 x10E3/uL Final RBC 07/24/2024 4.65 3.77 - 5.28 x10E6/uL Final Hemoglobin 07/24/2024 14.7 11.1 - 15.9 g/dL Final Hematocrit 07/24/2024 43.5 34.0 - 46.6 % Final MCV 07/24/2024 94 79 - 97 fL Final MCH 07/24/2024 31.6 26.6 - 33.0 pg Final MCHC 07/24/2024 33.8 31.5 - 35.7 g/dL Final RDW 07/24/2024 12.5 11.7 - 15.4 % Final Platelets 07/24/2024 205 150 - 450 x10E3/uL Final % Neutros 07/24/2024 62 Not Estab. % Final % Lymphs 07/24/2024 28 Not Estab. % Final % Monos 07/24/2024 5 Not Estab. % Final % Eos 07/24/2024 4 Not Estab. % Final % Baso 07/24/2024 1 Not Estab. % Final # Neutros 07/24/2024 3.3 1.4 - 7.0 x10E3/uL Final # Lymphs 07/24/2024 1.5 0.7 - 3.1 x10E3/uL Final # Monos 07/24/2024 0.3 0.1 - 0.9 x10E3/uL Final # Eos 07/24/2024 0.2 0.0 - 0.4 x10E3/uL Final Baso (Absolute) 07/24/2024 0.1 0.0 - 0.2 x10E3/uL Final % Immature Grans 07/24/2024 0 Not Estab. % Final # Immature Grans 07/24/2024 0.0 0.0 - 0.1 x10E3/uL Final Glucose, Serum 07/24/2024 83 70 - 99 mg/dL Final BUN 07/24/2024 19 8 - 27 mg/dL Final Creatinine, Serum 07/24/2024 0.80 0.57 - 1.00 mg/dL Final EGFR 07/24/2024 84 >59 mL/min/1.73 Final BUN/Creatinine Ratio 07/24/2024 24 12 - 28 Final Sodium, Serum 07/24/2024 141 134 - 144 mmol/L Final Potassium, Serum 07/24/2024 4.1 3.5 - 5.2 mmol/L Final Chloride, Serum 07/24/2024 105 96 - 106 mmol/L Final Carbon Dioxide, Total 07/24/2024 21 20 - 29 mmol/L Final Calcium, Serum 07/24/2024 9.3 8.7 - 10.3 mg/dL Final Protein, Total, Serum 07/24/2024 7.0 6.0 - 8.5 g/dL Final Albumin, Serum 07/24/2024 4.5 3.8 - 4.9 g/dL Final Globulin, Total 07/24/2024 2.5 1.5 - 4.5 g/dL Final Bilirubin, Total 07/24/2024 0.6 0.0 - 1.2 mg/dL Final Alkaline Phosphatase, S 07/24/2024 85 44 - 121 IU/L Final AST (SGOT) 07/24/2024 24 0 - 40 IU/L Final ALT (SGPT) 07/24/2024 23 0 - 32 IU/L Final Cholesterol, Total 07/24/2024 251 (H) 100 - 199 mg/dL Final Triglycerides 07/24/2024 95 0 - 149 mg/dL Final HDL Cholesterol 07/24/2024 73 >39 mg/dL Final VLDL Cholesterol Jp 07/24/2024 16 5 - 40 mg/dL Final LDL Calculated 07/24/2024 162 (H) 0 - 99 mg/dL Final Hemoglobin A1c 07/24/2024 5.2 4.8 - 5.6 % Final Comment: Prediabetes: 5.7 - 6.4 Diabetes: >6.4 Glycemic control for adults with diabetes: <7.0 TSH 07/24/2024 2.800 0.450 - 4.500 uIU/mL Final T4,Free(Direct) 07/24/2024 0.99 0.82 - 1.77 ng/dL Final Thyroxine (T4) 07/24/2024 6.9 4.5 - 12.0 ug/dL Final Triiodothyronine,Free,Serum 07/24/2024 2.9 2.0 - 4.4 pg/mL Final Vitamin D, 25-Hydroxy 07/24/2024 26.7 (L) 30.0 - 100.0 ng/mL Final Comment: Vitamin D deficiency has been defined by the [place] [employer] and an Endocrine Society practice guideline as a level of serum 25-OH vitamin D less than 20 ng/mL (1,2). The Endocrine Society went on to further define vitamin D insufficiency as a level between 21 and 29 ng/mL (2). 1. IOM ([place] [employer]). 2010. Dietary reference intakes for calcium and D. [place]: The National Academies Press. 2. Corrina MF, Cedrick MONTERO, Rochelle MCKOY, et al. Evaluation, treatment, and prevention of vitamin D deficiency: an Endocrine Society clinical practice guideline. JCEM. 2010; 96(7):1911-30. Iodine, Serum or Plasma 07/24/2024 45.3 31.1 - 64.6 ug/L Final Limit of quantitation = 20 Estradiol, Sensitive 07/24/2024 3.4 pg/mL Final Comment: Female: Follicular: 30.0 - 100.0 Luteal: 70.0 - 300.0 Postmenopausal: < 15.0 Methodology: Liquid chromatography tandem mass spectrometry(LC/MS/MS) Testosterone, Total, LC/MS 07/24/2024 23.6 7.0 - 40.0 ng/dL Final Testosterone, Free 07/24/2024 0.54 0.10 - 0.85 ng/dL Final % Free Testosterone 07/24/2024 2.30 0.50 - 2.80 % Final DHEA-Sulfate 07/24/2024 24.9 (L) 29.4 - 220.5 ug/dL Final Progesterone 07/24/2024 0.2 ng/mL Final Comment: Follicular phase 0.1 - 0.9 Luteal phase 1.8 - 23.9 Ovulation phase 0.1 - 12.0 First trimester 11.0 - 44.3 Second trimester 25.4 - 83.3 Third trimester 58.7 - 214.0 Postmenopausal 0.0 - 0.1 Cortisol - AM 07/24/2024 11.3 6.2 - 19.4 ug/dL Final Vitamin B12 07/24/2024 759 232 - 1,245 pg/mL Final Vitamin B6 07/24/2024 17.5 3.4 - 65.2 ug/L Final Comment: Deficiency: <3.4 Marginal: 3.4 - 5.1 Adequate: >5.1 Phosphorus, Serum 07/24/2024 3.3 3.0 - 4.3 mg/dL Final Assessment/Plan: Assessment/Plan: Marci Salamanca is a 58 y.o. female who has been evaluated today for The primary encounter diagnosis was Encounter to discuss test results. Diagnoses of Hypothyroidism, Post menopausal syndrome, and Joint pain were also pertinent to this visit. Discussion: Laboratory evaluation shows normal blood count metabolic panel A1c is appropriate Cholesterol is elevated with high LDL but high HDL. Triglycerides and VLDL are appropriate The 10-year ASCVD risk score (Moni MILLER, et al., 2019) is: 3.2% Values used to calculate the score: Age: 58 years Sex: Female Is Non- : No Diabetic: No Tobacco smoker: No Systolic Blood Pressure: 126 mmHg Is BP treated: No HDL Cholesterol: 73 mg/dL Total Cholesterol: 251 mg/dL Statin not indicated but recommend starting red yeast rice and this will likely improve once hormones are balanced Thyroid is suboptimally treated with TSH greater than 2 T4 less than 1 and T3 less than 3. Iodine is optimal. Will increase levothyroxine to 50 mcg once daily Phosphorus is appropriate B12 is within normal limits B6 is within normal limits Recommend multivitamin for maintenance vitamin and mineral support. Vit D is insufficient . Start K2 + D3 5,000IU for 3 months Hormone evaluation shows clinically low DHEA, progesterone and estrogen deficiency and normal testosterone. Cortisol is appropriate. Her levels make her appropriate for hormone replacement therapy however she has a high risk of breast cancer given her family history and paternal grandmother had ovarian cancer. Has had genetic testing for cancer risk and had no identified risk. Start HRT with estradiol and progesterone balancing. Plan for Indolplex once estrogen levels have been repleated. Start pregnenolone 30mg every evening for 2 months then stop. Risk versus benefits of hormone replacement therapy discussed including but not limited to the riskof blood clots, cancer, etc. patient is aware of potential side effects and ways to reduce risk of side effects and complications from HRT. Pt is aware to contact office if side effects arise. Counseled patient on risks and benefits of HRT and dicussed individual risk factors. Patient is agreeable t o plan and is agreeable to stay up-to-date on routine annual screening exams. Mammogram completed summer 2023 - [facility] Supplement recommendations: Red Yeast Rice + CoQ10 600mg (120 capsules) (J[employer] Formulas): Please take 1 capsule x once per day/ anytime for 3 months. Take with food. Clinical Nutrients??? HP (60 capsules) ([employer]): Please take 2 capsules x once per day / anytime ongoing (placeholder for your MVI). Pregnenolone 30mg (60 capsules) (Pure Encapsulations): Please take 1 capsule in the evening for 2 months. Take with food (with a meal). K2+D3 (60 capsules) (Integrative Therapeutics): Please take 1 capsule x once per day / anytime for 3 months. Take with food Referral to Dr. Swenson for Hrt with family history of breast cancer. ICD-10-CM ICD-9-CM 1. Encounter to discuss test results Z71.2 V65.49 2. Hypothyroidism E03.9 244.9 levothyroxine (SYNTHROID) 50 MCG tablet 3. Post menopausal syndrome N95.1 627.9 estradioL (VIVELLE-DOT) 0.0375 mg/24 hr patch progesterone (PROMETRIUM) 100 MG capsule 4. Joint pain M25.50 719.40 Return in about 6 weeks (around 09/30/2024) for HRT 6 week Follow Up (15 min), Ok for Telehealth. Time spent caring for the patient on today's visit including review of patient chart prior to entering the patient care room, [id number] time with the patient for complaints, history and examination, discussing care options, discussing discharge planning, planning next follow-up, and same day docu mentation was 42 minutes total by me. Concha Cote DO This note was partially generated using [employer] Dictation System, and there may be some incorrect words, spellings, and punctuation that were not noted in checking the note before saving. Note to Patient: The Cure Act makes medical noted like these available to patients in the interest of transparency. However, be advised this is a medical document. It is intended as peerto peer communication. It is written in medical language and may contain abbreviations or verbiage that are unfamiliar. It may appear blunt or direct. Medical documents are intended to carry relevantinformation, facts as evident, and the clinical opinion of the physician. documented in this encounter Plan of Treatment Upcoming Encounters Date Type Department Care Team (Late st Contact Info) Description 10/07/2024 9:15 AM EDT Office Visit [facility] Primary [facility] [address] [place] [address] Concha Cote DO [address] [place] [address] documented as of this encounter Visit Diagnoses Diagnosis Encounter to discuss test results- Primary Other specified counseling Hypothyroidism Unspecified hypothyroidism Post menopausal syndrome Asymptomatic postmenopausal status (age-related) (natural) Joint pain Pain in joint, site unspecified documented in this encounter Care Teams Track Worker Relationship Specialty Start Date End Date Concha Cote DO [address] [place] [address] PCP - General Family Medicine 07/16/24 documented as of this encounter
--- OUTSIDE RECORDS SUMMARY | 2024-08-30 10:20 | XMS_ITS | Encounter Summary ---
[facility] Address [address] [place] [address] Care Team Providers Care Environmental Planner Name Role Phone Concha Cote DO Primary Care Provider [phone] Reason for Visit * Reason Comments Follow-up 10 month follow up - - 1 year s/p Left Total knee arthroplasty DOS: 08/24/23 Encounter Details Date Type Department Care Team (Late st Contact Info) Description 08/30/2024 10:20 AM EDT Office Visit [facility] [address] [address] Grady Bains MD [address] [place] [address] [place] [address] Status post total left knee replacement (Primary Dx); Postoperative examination Social History Tobacco Use Types Packs/Day Years Used Date Smoking Tobacco: Former Cigarettes 2 10 0 03/06/1985 - 03/06/1995 Smokeless Tobacco: Never Tobacco Cessation:Counseling Given: Not Answered Alcohol Use Standard Drinks/Week Comments Not Currently 0 (1 standard drink = 0.6 oz pur e alcohol) monthly Comments Unknown Sex and Gender Information Value Date Recorded Sex Assigned at Female 08/23/2024 8:02 AM EDT Legal Sex Female 1:31 PM EST Gender Identity Not on file Sexual Orientation Not on file documented as of this encounter Last Filed Vital Signs Vital Sign Reading Time Taken Comments Blood Pressure - - Pulse - - Temperature - - Respiratory Rate - - Oxygen Saturation - - Inhaled Oxygen Concentration - - Weight 79.4 kg (175 lb) 08/30/2024 10:39 AM EDT Height 174.5 cm (5' 8.7 ) 08/30/2024 10:39 AM ED T Body Mass Index 26.07 08/30/2024 10:39 AM EDT documented in this encounter Progress Notes * Grady Bains MD - 08/30/2024 10:20 AM EDT Images from the original note were not included. [facility] [place] Orthopaedic Surgery Clinic Note Subjective Chief Complaint Patient presents with Follow-up 10 month follow up -- 1 year s/p Left Total knee arthroplasty DOS: 08/24/23 HPI It has been 10 month(s) since Ms. Salamanca's last visit. She returns to clinic today for postoperativefollow-up of left knee arthroplasty. The issue has been ongoing for 1 year(s). She rates her pain a1/10 on the pain scale. Previous/current treatments: physical therapy. Current symptoms: same as prior visit. The pain is worse with being on it for long periods of time ; resting improve the pain. Overall, she is doing better. 85% improvement compared to her preoperative symptoms. Fully ambulatorywithout external aids. I have reviewed the following portions of the patient's history and agree with: History of Present Illness and Review of Systems Patient Active Problem List Diagnosis Degenerative arthritis of left knee Past Medical History: Diagnosis Date Knee swelling 03.06.01 As long as i can remember Past Surgical History: Procedure Laterality Date BREAST LUMPECTOMY Right SECTION HYSTERECTOMY Family History Problem Relation Age of Onset Cancer Mother breast Social History Socioeconomic History Marital status: Tobacco Use Smoking status: Former Current packs/day: 0.00 Average packs/day: 2.0 packs/day for 10.0 years (20.0 ttl pk-yrs) Types: Cigarettes Start date: 03/06/1985 Quit date: 03/06/1995 Years since quittin.5 Smokeless tobacco: Never Vaping Use Vaping status: Never Used Substance and Sexual Activity Alcohol use: Not Currently Comment: monthly Drug use: Never Sexual activity: Yes Partners: Male control/protection: Tubal ligation, Hysterectomy Current Outpatient Medications on File Prior to Visit Medication Sig Dispense Refill ASHWAGANDHA PO Take by mouth. cetirizine (ZyrTEC Allergy) 10 MG tablet CINNAMON PO Take by mouth Daily. COLLAGEN PO Take by mouth Daily. cyclobenzaprine (FLEXERIL) 5 MG tablet TAKE ONE TABLET BY MOUTH THREE TIMES DAILY NEEDED MAY CAUSE DROWSINESS estradiol (CLIMARA) 0.0375 MG/24HR Place 1 patch on the skin as directed by provider 1 (One) Time Per Week. levothyroxine (SYNTHROID, LEVOTHROID) 25 MCG tablet Take 1 tablet by mouth Daily. Magnesium Cl-Calcium Carbonate (SLOW MAGNESIUM/CALCIUM PO) Take by mouth Daily. meloxicam (MOBIC) 15 MG tablet TAKE 1 TABLET BY MOUTH DAILY WITH FOOD NEEDED 30 tablet 0 multivitamin with minerals (MULTIVITAMIN ADULT PO) Take 1 tablet by mouth Daily. [place]-3 Fatty Acids (OMEGA-3 CF PO) Take by mouth Daily. Polyethylene Glycol 3350 (MIRALAX PO) Take by mouth. potassium chloride (MICRO-K) 10 MEQ CR capsule Take 1 capsule by mouth Daily. Progesterone (PROMETRIUM) 200 MG capsule Take 1 capsule by mouth Daily. TURMERIC PO Take by mouth Daily. venlafaxine XR (EFFEXOR-XR) 75 MG 24 hr capsule Take 1 capsule by mouth Daily. Vitamin D-Vitamin K (K2 PLUS D3 PO) Take by mouth. estradiol (ESTRACE) 1 MG tablet Take 1 tablet by mouth Daily. No current facility-administered medications on file prior to visit. No Known Allergies Review of Systems Constitutional: Negative for activity change, appetite change, chills, diaphoresis, fatigue, fever and unexpected weight change. HENT: Negative for congestion, dental problem, drooling, ear discharge, ear pain, facial swelling, hearing loss, mouth sores, nosebleeds, postnasal drip, rhinorrhea, sinus pressure, sneezing, sore throat, tinnitus, trouble swallowing and voice change. Eyes: Negative for photophobia, pain, discharge, redness, itching and visual disturbance. Respiratory: Negative for apnea, cough, choking, chest tightness, shortness of breath, wheezing andstridor. Cardiovascular: Negative for chest pain, palpitations and leg swelling. Gastrointestinal: Negative for abdominal distention, abdominal pain, anal bleeding, blood in stool,constipation, diarrhea, nausea, rectal pain and vomiting. Endocrine: Negative for cold intolerance, heat intolerance, polydipsia, polyphagia and polyuria. Genitourinary: Negative for decreased urine volume, difficulty urinating, dysuria, enuresis, flank pain, frequency, genital sores, hematuria and urgency. Musculoskeletal: Positive for arthralgias. Negative for back pain, gait problem, joint swelling, myalgias, neck pain and neck stiffness. Skin: Negative for color change, pallor, rash and wound. Allergic/Immunologic: Negative for environmental allergies, food allergies and immunocompromised state. Neurological: Negative for dizziness, tremors, seizures, syncope, facial asymmetry, speech difficulty, weakness, light-headedness, numbness and headaches. Hematological: Negative for adenopathy. Does not bruise/bleed easily. Psychiatric/Behavioral: Negative for agitation, behavioral problems, confusion, decreased concentration, dysphoric mood, hallucinations, self-injury, sleep disturbance and suicidal ideas. The patientis not nervous/anxious and is not hyperactive. Objective Physical Exam Ht 174.5 cm (68.7 ) Wt 79.4 kg (175 lb) BMI 26.07 kg/m?? Body mass index is 26.07 kg/m??. BMI is >= 25 and <30. (Overweight) The following options were offered after discussion;: none(medical contraindication) General: Mental Status: Alert Appearance: Cooperative, in no acute distress Build and Nutrition: Well-nourished well-developed female Orientation: Alert and oriented to person, place and time Posture: Normal Gait: Nonantalgic/normal Integument: Left knee: Wound is well-healed with no signs of infection Lower Extremities: Left Knee: Tenderness: None Effusion: 1+ Swelling: None Crepitus: None Range of motion: Extension: 0?? Flexion: 135?? Instability: No varus laxity, no valgus laxity, negative anterior drawer Deformities: None Imaging/Studies Imaging Results (Last 24 Hours) Procedure Component Value Units Date/Time XR Knee 3+ View With [place] Left [[id number]] Resulted: 08/30/24 1105 Updated: 08/30/24 110 Narrative: Left Knee Radiographs Indication: status-post left total knee arthroplasty Views: AP, lateral, and sunrise views of the left knee Comparison: no change compared to prior study, 09/13/2023 Findings: The components are well aligned, with no signs of loosening or failure. Assessment and Plan Diagnoses and all orders for this visit: 1. Status post total left knee replacement (Primary) - XR Knee 3+ View With [place] Left 2. Postoperative examination 1. Status post total left knee replacement 2. Postoperative examination I reviewed my findings with the patient. Her left total knee arthroplasty appears to be functioningwell and she is pleased with results. I will see her back in 4 years for what will be a 5-year checkup with x-rays. I will see her back sooner for any problems Return in about 4 years (around 08/30/2028) for recheck with x-rays. Grady Bains MD 08/30/24 11:19 EDT Dictated Utilizing [employer] Dictation documented in this encounter Plan of Treatment Not on file documented as of this encounter Procedures Procedure Name Priority Date/Time Associated Diagnosis Comments XR KNEE 3+ VW W SUNRISE LEFT Routine 08/30/2024 10:58 AM EDT Status post total left knee replacement documented in this encounter Results * XR Knee 3+ View With [place] Left (08/30/2024 10:58 AM EDT) Anatomical Region Laterality Modality Lower Extremities, Knee Left Radiogra [facility] Imaging Narrative 08/30/2024 11:05 AM EDT Left Knee Radiographs Indication: status-post left total knee arthroplasty Views: AP, lateral, and sunrise views of the left knee Comparison: no change compared to prior study, 09/13/2023 Findings: The components are well aligned, with no signs of loosening or failure. us Grady Bains MD IMG DIAGNOSTIC IMAGING ORDERAB LES Final Result documented in this encounter Visit Diagnoses Diagnosis Status post total left knee replacement- Primary Postoperative examination Follow-up examination, following unspecified surgery documented in this encounter Care Teams Environmental Planner Relationship Specialty Start Date End Date Concha Cote DO [address] [facility] [address] [place] [address] PCP - General Family Medicine 08/30/24 documented as of this encounter
--- OUTSIDE RECORDS SUMMARY | 2024-08-30 11:00 | XMS_ITS | Encounter Summary ---
[facility] [address] [place] [address] Care Team Providers Care Soft Sugar Operator Head Name Role Phone Concha Cote DO Primary Care Provider [phone] Encounter Details Date Type Department Care Team (Late st Contact Info) Description 08/30/2024 11:00 AM EDT Ancillary Procedure [facility] [address] [facility] [address] [place] [address] Social History Tobacco Use Types Packs/Day Years Used Date Smoking Tobacco: Former Cigarettes 2 10 0 03/06/1985 - 03/06/1995 Smokeless Tobacco: Never Alcohol Use Standard Drinks/Week Comments Not Currently 0 (1 standard drink = 0.6 oz pur e alcohol) monthly Comments Unknown Sex and Gender Information Value Date Recorded Sex Assigned at Female 08/23/2024 8:02 AM EDT Legal Sex Female 1:31 PM EST Gender Identity Not on file Sexual Orientation Not on file documented as of this encounter Plan of Treatment Not on file documented as of this encounter Procedures Procedure Name Priority Date/Time Associated Diagnosis Comments XR KNEE 3+ VW W SUNRISE LEFT Routine 08/30/2024 10:58 AM EDT Status post total left knee replacement documented in this encounter Results * XR Knee 3+ View With [place] Left (08/30/2024 10:58 AM EDT) Anatomical Region Laterality Modality Lower Extremities, Knee Left Radiogra phic Imaging Narrative 08/30/2024 11:05 AM EDT Left Knee Radiographs Indication: status-post left total knee arthroplasty Views: AP, lateral, and sunrise views of the left knee Comparison: no change compared to prior study, 09/13/2023 Findings: The components are well aligned, with no signs of loosening or failure. us Grady Bains MD IMG DIAGNOSTIC IMAGING ORDERAB LES Final Result documented in this encounter Visit Diagnoses Not on filedocumented in this encounter Care Teams Soft Sugar Operator Head Relationship Specialty Start Date End Date Concha Cote DO [address] [place] [address] [address] [place] [address] PCP - General Family Medicine 08/30/24 documented as of this encounter
--- OUTSIDE RECORDS SUMMARY | 2024-10-03 11:44 | XMS_ITS | Referral Summary ---
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 Name Role Phone Concha Cote DO Primary Care Provider [phone] Encounters Date Type Department Care Team Description 08/19/2024 10:30 AM EDT Video - Telemedicine [facility] [address] [place] [address] [address] Concha Cote DO Encounter to discuss test results (Primary Dx); Hypothyroidism; Post menopausal syndrome; Joint pain 07/18/2024 Abstract [facility] [address] [place] [address] [address] Concha Cote DO 07/18/2024 Abstract [facility] [address] [place] [address] [address] Concha Cote DO 07/18/2024 Abstract [facility] [address] [place] [address] [address] Concha Cote DO 07/16/2024 Travel 07/16/2024 9:30 AM EDT Office Visit [facility] [address] [address] Concha Cote DO Encounter to establish care (Primary Dx); Fibromyalgia; Hypokalemia; Migraines; Post menopausal syndrome; Hypothyroidism; Screening cholesterol level; Diabetes mellitus screening; Joint pain from Last 3 Months Allergies No known active allergies Medications cyclobenzaprine (FLEXERIL) 5 MG tablet TAKE ONE TABLET BY MOUTH THREE TIMES DAILY NEEDED MAY CAUSE DROWSINESS 3 Active meloxicam (MOBIC) 15 MG tablet 3 Active potassium chloride (MICRO-K) 10 mEq CR capsule Take 1 capsule (10 mEq total) by mouth daily. Active venlafaxine XR (EFFEXOR-XR) 75 MG 24 hr capsule Take 1 capsule (75 mg total) by mouth daily. Active magnesium 200 mg tab Take by mouth. Activ e turmeric, bulk, 95 % powd Take by mouth. Activ e omega-3/dha/epa /dpa/fish oil (OMEGA-3 2100 ORAL) Take by mouth. Activ e cinnamon bark 500 mg capsule 1 cap(s) orally once daily Active UNKNOWN Ashwaganda 1000mg Boswellia 500mg Vitamin e 670mg Macedonian Ginseng 100mg Meloxicam 15mg as needed. Active levothyroxine (SYNTHROID) 50 MCG tabletIndicatio ns:Hypothyroidi sm Take 1 tablet (50 mcg total) by mouth daily. 30 tablet 11 5 Active estradioL (VIVELLE-DOT) 0.0375 mg/24 hr patchIndication s:Post menopausal syndrome Place 1 patch on the skin twice a week. 8 patch 11 5 Active progesterone (PROMETRIUM) 100 MG capsuleIndicati ons:Post menopausal syndrome Take 1 capsule (100 mg total) by mouth nightly. 30 capsule 2 5 Active Active Problems Problem Noted Date Diagnosed Date Hypokalemia 07/16/2024 Fibromyalgia 03/17/2004 Resolved Problems Problem Noted Date Diagnosed Date Resolved Date Migraines 07/16/2024 08/19/2024 Degenerative arthritis of left knee 06/12/2023 07/16/2024 Social History Tobacco Use Types Packs/Day Years Used Date Smoking Tobacco: Former Cigarettes 2 15 S tarted: 1980 Smokeless Tobacco: Never Tobacco Cessation:Counseling Given: Not Answered Alcohol Use Standard Drinks/Week Comments Not Currently 0 (1 standard drink = 0.6 oz pur e alcohol) [facility] - Mental Health Answer Date Recorde [...] Date Benito rded Speak language other than Rwandan at home Not on file 03/15/2023 Want [...] on file Sexual Orientation Not on file Last Filed Vital Signs Vital Sign Reading Time Taken Comments Blood Pressure 126/78 07/16/2024 9:36 AM EDT Pulse 83 07/16/2024 9:36 AM EDT Temperature 36.8 C (98.2 F) 07/16/2024 9:36 AM EDT Respiratory Rate 16 07/16/2024 9:36 AM EDT Oxygen Saturation 96% 07/16/2024 9:36 AM EDT Inhaled Oxygen Concentration - - Weight 81.2 kg (179 lb) 08/19/2024 10:44 AM EDT Height 172.7 cm (5' 8 ) 08/19/2024 10:44 AM EDT Body Mass Index 27.22 08/19/2024 10:44 AM EDT Plan of Treatment Upcoming Encounters Date Type Department Care Team (Late st Contact Info) Description 10/07/2024 9:15 AM EDT Office Visit [facility] [address] [place] [address] Concha Cote DO [address] [place] [address] Procedures Procedure Name Priority Date/Time Associated Diagnosis Comments PHOSPHORUS Routine 07/24/2024 8:59 AM EDT Fibromyalgia Hypokalemia Joint pain VITAMIN B6, PLASMA Routine 07/24/2024 8: 59 AM EDT Fibromyalgia VITAMIN B12 Routine 07/24/2024 8:59 AM EDT Fibromyalgia CORTISOL, AM Routine 07/24/2024 8:59 AM EDT Post menopausal syndrome PROGESTERONE Routine 07/24/2024 8:59 AM EDT Post menopausal syndrome DHEA SULFATE Routine 07/24/2024 8:59 AM EDT Post menopausal syndrome TESTOSTERONE, F EQLIB+T LC/MS Routine 07/24/2024 8:59 AM EDT Post menopausal syndrome ESTRADIOL, SENSITIVE Routine 07/24/2024 8:59 AM EDT Post menopausal syndrome IODINE, SERUM/PLASMA Routine 07/24/2024 8:59 AM EDT Hypothyroidism VITAMIN D, 25-HYDROXY Routine 07/24/2024 8:59 AM EDT Fibromyalgia Joint pain T3, FREE Routine 07/24/2024 8:59 AM EDT Hypothyroidism T4, FREE Routine 07/24/2024 8:59 AM EDT Hypothyroidism TSH Routine 07/24/2024 8:59 AM EDT Hypothyroidism HEMOGLOBIN A1C Routine 07/24/2024 8:59 AM EDT Diabetes mellitus screening LIPID PANEL Routine 07/24/2024 8:59 AM EDT Screening cholesterol level COMPREHENSIVE METABOLIC PANEL Routine 07/24/2024 8:59 AM EDT Hypokalemia Joint pain CBC W/PLT COUNT & AUTO DIFFERENTIAL Routine 07/24/2024 8:59 AM EDT Fibromyalgia Hypokalemia Joint pain from Last 3 Months Results * Vitamin B12 (07/24/2024 8:59 AM EDT) Vitamin B12 759 232 - 1,245 pg/mL [facility] 07/24/2024 8:59 AM EDT 07/24/2024 Narrative [facility] - 08/02/2024 8:07 PM EDT Performed at: - [address] [id number] Pillowcase Cutter: Donald Ayers PhD, Phone: [phone] [facility] LAB BLOOD ORDERABLES Final Resul t Performing Organization Address [facility] de Phone Number [facility] * ESTRADIOL, SENSITIVE (07/24/2024 8:59 AM EDT) Pathologist [facility] Estradiol, Sensitive 3.4 pg/mL [facility] Comment: Female: Follicular: 30.0 - 100.0 Luteal: 70.0 - 300.0 Postmenopausal: < 15.0 Methodology: Liquid chromatography tandem mass spectrometry(LC/MS/MS) Blood 07/24/2024 8:59 AM EDT 07/24/2024 [facility] - 08/02/2024 8:07 PM EDT Test(s) [id number], Sensitive was developed and its performance characteristics determined by [facility]. It has not been cleared or approved by the Food and Drug Administration. Performed at: - [address] [id number] Pillowcase Cutter: Mari Hair MD, Phone: [phone] [facility] LAB BLOOD ORDERABLES Final Resul t Performing Organization Address [facility] de Phone Number [facility] * Testosterone, F Eqlib+T LC/MS (07/24/2024 8:59 AM EDT) [facility] Testosterone, Total, LC/MS 23.6 7.0 - 40.0 ng/dL [facility] Testosterone, Free 0.54 0.10 - 0.85 ng/dL [facility] % Free Testosterone 2.30 0.50 - 2.80 % [facility] 07/24/2024 8:59 AM EDT 07/24/2024 Narrative [facility] - 08/02/2024 8:07 PM EDT Test(s) [id number], Total, LC/MS was developed and its performance characteristics determined by [facility]. It has not been cleared or approved by the Food and Drug Administration. Performed at: - [facility] [id number] Pillowcase Cutter: Mari Hair MD, Phone: [phone] Nova White DO LAB BLOOD ORDERABLES Final Resul t Performing Organization Address [facility] de Phone Number [facility] * IODINE, SERUM/PLASMA (07/24/2024 8:59 AM EDT) Iodine, Serum or Plasma 45.3 31.1 - 64.6 ug/L [facility] Comment:Limit of quantitatio n = 20 Blood 07/24/2024 8:59 AM EDT 07/24/2024 Narrative [facility] - 08/02/2024 8:07 PM EDT Test(s) [id number], Serum or Plasma was developed and its performance characteristics determined by [facility]. It has not been cleared or approved by the Food and Drug Administration. Performed at: - [facility] [id number] Pillowcase Cutter: Mari Hair MD, Phone: [phone] Nova White DO LAB BLOOD ORDERABLES Final Resul t Performing Organization Address [facility] Co de Phone Number [facility] * (ABNORMAL) Vitamin D, 25-Hydroxy (07/24/2024 8:59 AM EDT) Vitamin D, 25-Hydroxy 26.7(L) 30.0 - 100.0 ng/mL [facility] Comment: Vitamin D deficiency has been defined by the [place] of Medicine and an Endocrine Society practice guideline as a level of serum 25-OH vitamin D less than 20 ng/mL (1,2). The Endocrine Society went on to further define vitamin D insufficiency as a level between 21 and 29 ng/mL (2). 1. IOM ([place] of Medicine). 2010. Dietary reference intakes for calcium and D. [place]: The National Academies Press. 2. Corrina MF, Cedrick NC, Rochelle MCKOY, et al. Evaluation, treatment, and prevention of vitamin D deficiency: an Endocrine Society clinical practice guideline. JCEM. 2010; 96(9):1911-30. Blood 07/24/2024 8:59 AM EDT 07/24/2024 Narrative [facility] - 08/02/2024 8:07 PM EDT Performed at: [address] [place] [id number] Pillowcase Cutter: Donald Ayers PhD, Phone: [phone] Nova White DO LAB BLOOD ORDERABLES Final Resul t Performing Organization Address [facility] de Phone Number [facility] * Progesterone (07/24/2024 8:59 AM EDT) [facility] Progesterone 0.2 ng/mL [facility] Comment: Follicular phase 0.1 - 0.9 Luteal phase 1.8 - 23.9 Ovulation phase 0.1 - 12.0 First trimester 11.0 - 44.3 Second trimester 25.4 - 83.3 Third trimester 58.7 - 214.0 Postmenopausal 0.0 - 0.1 Blood 07/24/2024 8:59 AM EDT 07/24/2024 Narrative [facility] - 08/02/2024 8:07 PM EDT Performed at: [facility] [id number] Pillowcase Cutter: Donald Ayers PhD, Phone: [phone] Nova White DO LAB BLOOD ORDERABLES Final Resul t Performing Organization Address [facility] de Phone Number [facility] * (ABNORMAL) DHEA Sulfate (07/24/2024 8:59 AM EDT) DHEA-Sulfate 24.9(L) 29.4 - 220.5 ug/dL [facility] Blood 07/24/2024 8:59 AM EDT 07/24/2024 Narrative [facility] - 08/02/2024 8:07 PM EDT Performed at: 01 - [facility] [id number] Pillowcase Cutter: Donald Ayers PhD, Phone: [phone] us Nova White DO LAB BLOOD ORDERABLES Final Resul t [facility] * CBC with platelet count + automated diff (07/24/2024 8:59 AM EDT) WBC 5.4 3.4 - 10.8 x10E3/uL [facility] RBC 4.65 3.77 - 5.28 x10E6/uL [facility] Hemoglobin 14.7 11.1 - 15.9 g/dL [facility] Hematocrit 43.5 34.0 - 46.6 % [facility] MCV 94 79 - 97 fL [facility] MCH 31.6 26.6 - 33.0 pg [facility] MCHC 33.8 31.5 - 35.7 g/dL [facility] RDW 12.5 11.7 - 15.4 % [facility] Platelets 205 150 - 450 x10E3/uL [facility] % Neutros 62 Not Estab. % [facility] % Lymphs 28 Not Estab. % [facility] % Monos 5 Not Estab. % [facility] % Eos 4 Not Estab. % [facility] % Baso 1 Not Estab. % [facility] # Neutros 3.3 1.4 - 7.0 x10E3/uL [facility] # Lymphs 1.5 0.7 - 3.1 x10E3/uL [facility] # Monos 0.3 0.1 - 0.9 x10E3/uL [facility] # Eos 0.2 0.0 - 0.4 x10E3/uL [facility] Baso (Absolute) 0.1 0.0 - 0.2 x10E3/uL [facility] % Immature Grans 0 Not Estab. % [facility] # Immature Grans 0.0 0.0 - 0.1 x10E3/uL [facility] Blood 07/24/2024 8:59 AM EDT 07/24/2024 Narrative [facility] - 08/02/2024 8:07 PM EDT Performed at: [address] [place] [id number] Pillowcase Cutter: Donald Ayers PhD, Phone: [phone] us Nova White DO LAB BLOOD ORDERABLES Final Resul t Performing Organization Address [facility] Co de Phone Number [facility] * T3, free (07/24/2024 8:59 AM EDT) Triiodothyronin e,Free,Serum 2.9 2.0 - 4.4 pg/mL [facility] Blood 07/24/2024 8:59 AM EDT 07/24/2024 Narrative [facility] - 08/02/2024 8:07 PM EDT Performed at: [address] [place] [id number] Pillowcase Cutter: Donald Ayers PhD, Phone: [phone] Nova White DO LAB BLOOD ORDERABLES Final Resul t Performing Organization Address [facility] de Phone Number [facility] * TSH (07/24/2024 8:59 AM EDT) TSH 2.800 0.450 - 4.500 uIU/mL [facility] Blood 07/24/2024 8:59 AM EDT 07/24/2024 Narrative [facility] - 08/02/2024 8:07 PM EDT Performed at: [address] [place] [id number] Pillowcase Cutter: Donald Ayers PhD, Phone: [phone] us Nova White DO LAB BLOOD ORDERABLES Final Resul t Performing Organization Address [facility] de Phone Number [facility] * T4, free (07/24/2024 8:59 AM EDT) Pathologist [facility] T4,Free(Direct) 0.99 0.82 - 1.77 ng/dL [facility] Thyroxine (T4) 6.9 4.5 - 12.0 ug/dL [facility] Blood 07/24/2024 8:59 AM EDT 07/24/2024 Narrative [facility] - 08/02/2024 8:07 PM EDT Performed at: - [address] [id number] Pillowcase Cutter: Donald Ayers PhD, Phone: [phone] [facility] LAB BLOOD ORDERABLES Final Resul t Performing Organization Address [facility] de Phone Number [facility] * Vitamin B6, Plasma (07/24/2024 8:59 AM EDT) [facility] Vitamin B6 17.5 3.4 - 65.2 ug/L [facility] Comment: Deficiency: <3.4 Marginal: 3.4 - 5.1 Adequate: >5.1 Blood 07/24/2024 8:59 AM EDT 07/24/2024 [facility] - 08/02/2024 8:07 PM EDT Test(s) [id number] B6 was developed and its performance characteristics determined by [facility]. It has not been cleared or approved by the Food and Drug Administration. Performed at: - [address] [id number] Pillowcase Cutter: Mari Hair MD, Phone: [phone] [facility] LAB BLOOD ORDERABLES Final Resul t Performing Organization Address [facility] de Phone Number [facility] * Phosphorus (07/24/2024 8:59 AM EDT) [facility] Phosphorus, Serum 3.3 3.0 - 4.3 mg/dL [facility] Blood 07/24/2024 8:59 AM EDT 07/24/2024 Narrative [facility] - 08/02/2024 8:07 PM EDT Performed at: [facility] [address] [id number] Pillowcase Cutter: Donald Ayers PhD, Phone: [phone] Nova White DO LAB BLOOD ORDERABLES Final Resul t Performing Organization Address [facility] de Phone Number [facility] * Hemoglobin A1c (07/24/2024 8:59 AM EDT) Hemoglobin A1c 5.2 4.8 - 5.6 % [facility] Comment: Prediabetes: 5.7 - 6.4 Diabetes: >6.4 Glycemic control for adults with diabetes: <7.0 Blood 07/24/2024 8:59 AM EDT 07/24/2024 Narrative [facility] - 08/02/2024 8:07 PM EDT Performed at: [address] [place] [id number] Pillowcase Cutter: Donald Ayers PhD, Phone: [phone] Nova White DO LAB BLOOD ORDERABLES Final Resul t Performing Organization Address [facility] de Phone Number [facility] * Cortisol, AM (07/24/2024 8:59 AM EDT) Cortisol - AM 11.3 6.2 - 19.4 ug/dL [facility] Blood 07/24/2024 8:59 AM EDT 07/24/2024 Narrative [facility] - 08/02/2024 8:07 PM EDT Performed at: [address] [place] [id number] Pillowcase Cutter: Donald Ayers PhD, Phone: [phone] Nova White DO LAB BLOOD ORDERABLES Final Resul t [facility] * (ABNORMAL) Lipid panel (07/24/2024 8:59 AM EDT) Cholesterol, Total 251(H) 100 - 199 mg/dL [facility] Triglycerides 95 0 - 149 mg/dL [facility] HDL Cholesterol 73 >39 mg/dL [facility] VLDL Cholesterol Jp 16 5 - 40 mg/dL [facility] LDL Calculated 162(H) 0 - 99 mg/dL [facility] Blood 07/24/2024 8:59 AM EDT 07/24/2024 Narrative [facility] - 08/02/2024 8:07 PM EDT Performed at: - [address] [id number] Pillowcase Cutter: Donald Ayers PhD, Phone: [phone] us Nova White DO LAB BLOOD ORDERABLES Final Resul t Performing Organization Address City/[facility]/ZIP Co de Phone Number [facility] * Comprehensive metabolic panel (07/24/2024 8:59 AM EDT) Glucose, Serum 83 70 - 99 mg/dL [facility] BUN 19 8 - 27 mg/dL [facility] Creatinine, Serum 0.80 0.57 - 1.00 mg/dL [facility] EGFR 84 >59 mL/min/1.73 [facility] BUN/Creatinine Ratio 24 12 - 28 [facility] Sodium, Serum 141 134 - 144 mmol/L [facility] Potassium, Serum 4.1 3.5 - 5.2 mmol/L [facility] Chloride, Serum 105 96 - 106 mmol/L [facility] Carbon Dioxide, Total 21 20 - 29 mmol/L [facility] Calcium, Serum 9.3 8.7 - 10.3 mg/dL [facility] Protein, Total, Serum 7.0 6.0 - 8.5 g/dL [facility] Albumin, Serum 4.5 3.8 - 4.9 g/dL [facility] Globulin, Total 2.5 1.5 - 4.5 g/dL [facility] Bilirubin, Total 0.6 0.0 - 1.2 mg/dL [facility] Alkaline Phosphatase, S 85 44 - 121 IU/L [facility] AST (SGOT) 24 0 - 40 IU/L [facility] ALT (SGPT) 23 0 - 32 IU/L [facility] Blood 07/24/2024 8:59 AM EDT 07/24/2024 Narrative [facility] - 08/02/2024 8:07 PM EDT Performed at: 01 - [facility] [address] [id number] Pillowcase Cutter: Donald Ayers PhD, Phone: [phone] us Concha oCte DO LAB BLOOD ORDERABLES Final Resul t [facility] from Last 3 Months Insurance Care Teams [employer] Relationship Specialty Start Date End Date Concha Cote DO [address] [place] [address] PCP - General Family Medicine 07/16/24
--- OUTSIDE RECORDS SUMMARY | 2024-10-03 11:44 | XMS_ITS | Encounter Summary ---
Author Organization [employer] ([place], [place], [place], [place]) Address [address] [place] [address] Care Team Providers Care Seat Joiner Chainstitch Name Role Phone Concha Cote DO Primary Care Provider [phone] Encounter Details Date Type Department Care Team (Late st Contact Info) Description 07/18/2024 Abstract [facility] [address] [place] [address] Concha Cote DO [address] [place] [address] Social History Tobacco Use Types Packs/Day Years Used Date Smoking Tobacco: Former Cigarettes 2 15 S tarted: 1980 Smokeless Tobacco: Never Alcohol Use Standard Drinks/Week Comments Not Currently 0 (1 standard drink = 0.6 oz pur e alcohol) [facility] - Mental Health Answer Date Recorde [...] Date Benito rded Speak language other than Haitian at home Not on file 03/15/2023 Want [...] as of this encounter Plan of Treatment Upcoming Encounters Date Type Department Care Team (Late st Contact Info) Description 10/07/2024 9:15 AM EDT Office Visit [facility] [address] [place] [address] Concha Cote DO [address] [place] [address] documented as of this encounter Visit Diagnoses Not on filedocumented in this encounter Care Teams Seat Joiner Chainstitch Relationship Specialty Start Date End Date Concha Cote DO [address] [place] [address] PCP - General Family Medicine 07/16/24 documented as of this encounter
--- OUTSIDE RECORDS SUMMARY | 2024-10-03 11:44 | XMS_ITS | Encounter Summary ---
Author Organization [employer] ([place], [place], [place], [place]) Address [address] [place] [address] Care Team Providers Care Insulation Mechanic Name Role Phone Concha Cote DO Primary Care Provider [phone] Encounter Details Date Type Department Care Team (Late st Contact Info) Description 07/18/2024 Abstract [facility] [address] [place] [address] Concha Cote DO [address] [place] [address] Social History Tobacco Use Types Packs/Day Years Used Date Smoking Tobacco: Former Cigarettes 2 15 S tarted: 1980 Smokeless Tobacco: Never Alcohol Use Standard Drinks/Week Comments Not Currently 0 (1 standard drink = 0.6 oz pur e alcohol) [facility] - Mental Health Answer Date Recorde [...] Date Benito rded Speak language other than Sierra Leonean at home Not on file 03/15/2023 Want [...] Description 10/07/2024 9:15 AM EDT Office Visit [facility] [address] [place] [address] Concha Cote DO [address] [place] [address] documented as of this encounter Visit Diagnoses Not on filedocumented in this encounter Care Teams Insulation Mechanic Relationship Specialty Start Date End Date Concha Cote DO [address] [place] [address] PCP - General Family Medicine 07/16/24 documented as of this encounter
--- OUTSIDE RECORDS SUMMARY | 2024-10-03 11:44 | XMS_ITS | Clinical Summary ---
Author Organization Healthcare Address [address] [id number] Care Team Providers Care Principal Account Clerk Name Role Phone Tim Nuñez MD Primary Care Provider [phone] Family History Medical History Relation Name Comments Diabetes Other 1 Parkinson Disease Other 2 Relation Name Status Comments Other 1 Other 2 Social History Tobacco Use Types Packs/Day Years Used Date Smoking Tobacco: Never Alcohol Use Standard Drinks/Week Comments Yes 0 (1 standard drink = 0.6 oz pure alcohol) Alcoholic Drinks/day: Occasional alcohol use Comments Unknown Sex and Gender Information Value Date Recorded Sex Assigned at Not on file Legal Sex Female 8:54 PM EDT Gender Identity Not on file Sexual Orientation Not on file Plan of Treatment Health Maintenance Due Date Last Done Comments [facility]-Depression Screening 1965 [facility]-Infant/Child/Adol SDOH Screenings 1965 [facility]- SDOH Screenings 12/14/1981 [facility]-Adult SDOH Screenings 12/14/1981 [facility]-DTaP,Tdap,and Td Vaccine s (1 - Tdap) 12/14/1982 [facility]-Pap Smear 12/14/1984 [facility]-Cervical Cancer Screening 12/14/1993 [facility]-HPV/Cotest 12/14/1993 CT Colonography 12/14/2008 Colonoscopy 12/14/2008 FIT-DNA 12/14/2008 FIT 12/14/2008 FOBT 12/14/2008 Sigmoidoscopy 12/14/2008 [facility]-Colorectal Cancer Screening 12/14/2008 [facility]-Pneumococcal Vaccine: 50 + Years (1 of 1 - PCV) 12/14/2013 [facility]-Zoster Vaccines (1 of 2) 12/14/2013 [id number] Vaccine ( season) 2023 01/08/2021, 04/10/2020, 03/10/2020 [facility]-Influenza Vaccine (#1) 2024 [facility]-RSV Vaccine: 60+ Years o r (1 - 1-dose 75+ series) 12/14/2038 HPV Vaccines Aged Out No longer eligi ble based on patient's age to complete this topic [facility]-HIB Vaccines Aged Out No longer e ligible based on patient's age to complete this topic [facility]-Hepatitis A Vaccines Aged Out No longer eligible based on patient's age to complete this topic [facility]-IPV Vaccines Aged Out No longer e ligible based on patient's age to complete this topic [facility]-Rotavirus Vaccines Aged Out No lo nger eligible based on patient's age to complete this topic Insurance [place] [id number] [facility] Care Teams Principal Account Clerk Relationship Specialty Start Date End Date Tim Nuñez MD [address] [place] [address] [place] [address] PCP - General 07/17/20
--- OUTSIDE RECORDS SUMMARY | 2024-10-03 11:44 | XMS_ITS | Patient Health Record ---
Author Organization [facility] Address [address] [place] [id number] Care Team Providers Care Bicycle Assembler Name Role Phone Lynda Garvey Primary Care Provider Nat Nuñez Unavailable [phone] Gladys Dillard Unavailable [phone] Allergies Allergen (clinical drug ingredient) Drug/Non Drug Allergy documented on EMR Reaction Allergy Type Onset Date Status azithromycin Zithromax Unknown Drug Allergy Acti ve Results Component Value Reference Range Notes x ray : 1st digit, left foot Reviewed date:01/31/2024 11:37:38 AM Interpretation: Performing Lab: Notes/Report: P-Comprehensive Metabolic Pa andrew (CMP) Reviewed date:12/13/2023 02:33:24 PM Interpretation:Normal Performing Lab: Notes/Report: Test performed by [facility], [email or web address] [address] [place] [address] , [address], [place] [address] Saúl Rodriguez MD, Team Psychologist CLIA: [id number] Sodium 141 135-145 mmol/L Potassium 4.4 3.5-5.3 [...] Interpretation:1.00-normal Performing Lab: Notes/Report: Test performed by [facility] [address] [place] [address] , [place] [address] Saúl Rodriguez MD, Team Psychologist CLIA: [id number] Thyroxine Free (free T4) 1.00 0.86-1.76 ng/dL P-Lipid Panel Reviewed date:12/13/2023 02:31:59 PM Interpretation:LDL 120; HDL65; TG225 Performing Lab: Notes/Report: Test performed by [facility] [address] [place] [address] [place] [address] Saúl Rodriguez MD, Team Psychologist CLIA: [id number] Cholesterol 230 <200 mg/dL Triglycerides 225 <150 [...] Interpretation:2.74 Performing Lab: Notes/Report: Test performed by [facility] [address] , [place] [address] Saúl Rodriguez MD, Team Psychologist CLIA: [id number] TSH 2.74 0.43-5.25 mU/L Mammogram Reviewed date:01/11/2024 01:55:04 PM Interpretation:DR PASCUAL Performing Lab: Notes/Report: DR PASCUAL DEXA Hip and Spine Reviewed date:01/12/2024 08:38:57 AM Interpretation:DR PASCUAL Performing Lab: Notes/Report: DR PASCUAL Medications Medication SIG (Take, Route, Frequency, Duration) Notes Start Date End Date Status Slow Magnesium/Calcium 70-117 MG as directed Orally 2 capsules daily Activ e Turmeric Curcumin - as directed Orally 1,000 mg daily Active Whiting 3-5-6-7-9 Fatty Acids - as directed Orally 2 once a day Active Cinnamon 500 MG 1 cap(s) orally once daily Active Meloxicam 15 MG 1 tablet Orally Once a day; Duration: 90 day(s) 10/19/2022 Active ZyrTEC 10 MG 1 tablet Orally Once a day; Duration: 30 day(s) Active Levothyroxine Sodium 25 MCG TAKE 1 TABLET BY MOUTH ONCE DAILY Orally Once a day; Duration: 90 days Active Multi Vitamin - 1 tablet Orally Once a day; Duration: 30 day(s) Active Estradiol 1 MG 1 tab(s) orally once a day Active Potassium Chloride ER 10 MEQ 1 cap(s) orally once a day; Duration: 90 days Active Venlafaxine HCl ER 75 MG TAKE 1 CAPSULE BY MOUTH ONCE DAILY; Duration: 90 Active Cyclobenzaprine HCl 5 MG 1 tab(s) orally 3 times a day, prn Active Immunizations Vaccine Route Administration Date Status Comme nts COVID 19 Moderna Unknown 04/10/2020 Administered COVID 19 Moderna Unknown 01/08/2021 Administered DT, 7 YEARS OR OLDER IM Intramuscular 05/11/2006 Administe red Fluzone Quad (6months&older) Unknown 12/25/2014 Administered Hepatitis A (adult) IM Intramuscular 04/27/2018 Administer ed ppd ID Intradermal 01/03/2011 Administered Shingrix IM Intramuscular 04/27/2018 Administered Tetanus Tdap-Adacel (over 7yrs) IM Intramuscular 09/17/2014 Administered tuberculin (ppd) ID Intradermal 09/25/2007 Administered xFlu shot-36 months and older IM Intramuscular 01/29/2005 Administered xFlu shot-36 months and older IM Intramuscular 01/07/2006 Administered xFlu shot-36 months and older IM Intramuscular 01/09/2007 Administered xFlu shot-36 months and older IM Intramuscular 12/31/2007 Administered xFlu shot-36 months and older IM Intramuscular 02/09/2009 Administered xFlu shot-36 months and older IM Intramuscular 12/31/2009 Administered xFluzone (6mos and older)-trivalent IM Intramuscular 12/29/2010 Administered Problems Problem Type SNOMED Code ICD Code Onset Dates Problem Status W/U Status Risk Notes Problem Migraine (91715492) Migraine, unspecified, without mention of intractable migraine (346.90) Active confirmed Problem Menopause (041566436) Menopause, menopausal (627.2) Active confirmed Problem Hypothyroidism (84383642) Hypothyroidism (acquired) (E03.9) Active confirmed Problem Seasonal allergy (501859615) Seasonal allergies (J30.2) Active confirmed Problem Arthritis (6565631) Arthritis (M19.90) Active c onfirmed Problem Sciatic nerve lesion (654876678) Piriformis syndrome of left side (G57.02) Active confirmed Problem Primary generalised osteoarthritis (156196173) Primary generalized (osteo)arthritis (M15.0) Active confirmed Problem Headache disorder (590677572) Other headache syndrome (G44.89) Active confirmed Problem Chronic pain (25285265) Other chronic pain (G89.29) Active confirmed Problem Depressive disorder (35065767) Depressive disorder (F32.9) Active confirmed Problem Migraine without aura, not refractory (457617258) Migraine without aura and without status migrainosus, not intractable (G43.009) Active confirmed Problem Sacroiliitis (09988388) Sacroiliitis (M46.1) Active confirmed Problem Human immunodeficiency virus screening (653950124) Screening for HIV (human immunodeficiency virus) (Z11.4) Active confirmed Problem Viral screening (133315879) Need for hepatitis B screening test (Z11.59) Active confirmed Problem Sciatica (15838997) Acute left-s ided low back pain with left-sided sciatica (M54.42) Active confirmed Problem Immunology screening test (310623626) Immunity status testing (Z01.84) Active confirmed Problem Viral screening (325417561) Encounter for HCV screening test for low risk patient (Z11.59) Active confirmed Vital Signs Heart Rate 94 /min 01/30/2024 Blood pressure diastolic 70 mm Hg 01/30/2024 Height 68.75 in 01/30/2024 Blood pressure systolic 118 mm Hg 01/30/2024 Weight 172.2 lbs 01/30/2024 BMI 25.61 kg/m2 01/30/2024 Encounters Encounter Location Date Provider Diagnosis [facility] [address] [place] [id number] 12/11/2023 Gladys Dillard Depressive disorder F32.9 ; Hypothyroidism (acquired) E03.9 ; Primary generalized (osteo)arthritis M15.0 ; Hypokalemia E87.6 ; Lipid screening Z13.220 and Arthritis M19.90 [facility] [address] [place] [id number] 01/30/2024 Gladys Dillard Toe pain, left M79.6 75 [facility] [address] [place] [id number] 12/13/2023 Gladys Dillard Assessments Encounter Date Diagnosis (ICD Code) Assessment Notes Treatment Notes Treatment Clinical Notes Section Notes 12/11/2023 Hypothyroidism (acquired) (ICD-10 - E03.9) depending on thyroid labs, may stop thyroid med and repeat TSH i 3 months 12/11/2023 Depressive disorder (ICD-10 - F32.9) 01/30/2024 Toe pain, left (ICD-10 - M79.675) continue to protect the toe 12/11/2023 Primary generalized (osteo)arthritis (ICD-10 - M15.0) 12/11/2023 Hypokalemia (ICD-10 - E87.6) 12/11/2023 Lipid screening (ICD-10 - Z13.220) 12/11/2023 Arthritis (ICD-10 - M19.90) Plan Of Treatment No Information Insurance Providers Payer Name Payer Address Payer Phone Subscriber Number Group Number Insured Name Patient Relationship to Insured Coverage Start Date Coverage End Date NATALYA VERDUGO [address] [place], [place] [id number] SANTOS FRANCIS Self - patient is the insured Medications Administered Medication Instructions Date of Administration Dosage Notes celestone 12/11/2017 1 mL Depo- Medrol 40 mg/ml 04/23/2014 1 mL Depo- Medrol 40 mg/ml 06/11/2018 1.5 mL Depo- Medrol 40 mg/ml 07/25/2019 1.5 mL Depo- Medrol 40 mg/ml 10/19/2022 1.5 mL Dexamethasone 05/11/2006 1 mL Dexamethasone 07/19/2014 1 mL Dexamethasone 06/01/2016 1 mL Dexamethasone 07/19/2016 1 mL Dexamethasone 10/04/2017 1 mL Dexamethasone 04/12/2018 1 mL Dexamethasone 12/18/2018 1 mL Dexamethasone 08/18/2020 1 mL Medical (General) History Medical History History ICD Code migraine headache Surgical History Surgery Date(Month/Year) C Section Breast Biopsy- Benign 2006 Hysterectomy, Abdominal 2011 LT Knee Replacement 2023 Hospitalization History Reason Date(Month/Year)
--- OUTSIDE RECORDS SUMMARY | 2024-10-03 11:44 | XMS_ITS | Encounter Summary ---
Author Organization [facility] Address [address] [place] [address] Care Team Providers Care Fiberglass Bonding Machine Tender Name Role Phone Concha Cote DO Primary Care Provider [phone] Encounter Details Date Type Department Care Team (Latest Contact Info) Description 08/30/2024 Travel Social History Tobacco Use Types Packs/Day Years [...] on file documented as of this encounter Visit Diagnoses Not on filedocumented in this encounter Care Teams Fiberglass Bonding Machine Tender Relationship Specialty Start Date End Date Concha Cote DO [address] [place] [address] [address] [place] [address] PCP - General Family Medicine 08/30/24 documented as of this encounter
--- OUTSIDE RECORDS SUMMARY | 2024-10-03 11:44 | XMS_ITS | Clinical Summary ---
Author Organization [facility] ([place], [place], [place], [place]) Address [address] [place] [address] Care Team Providers Care Lace Stripper Name Role Phone Concha Cote DO Primary Care Provider [phone] Allergies No known active allergies Medications cyclobenzaprine [...] Ashwaganda 1000mg Boswellia 500mg Vitamin e 670mg Frisian Ginseng 100mg Meloxicam 15mg as needed. Active [...] total) by mouth nightly. 30 capsule 2 Active Active Problems Problem Noted Date Diagnosed Date Hypokalemia 07/16/2024 Fibromyalgia 03/17/2004 Resolved Problems Problem Noted Date Diagnosed Date Resolved Date Migraines 07/16/2024 08/19/2024 Degenerative arthritis of left knee 06/12/2023 07/16/2024 Encounters Date Type Department Care Team Description 08/19/2024 10:30 AM EDT Video - Telemedicine [facility] [address] [place] [address] [phone] Concha Cote DO Encounter to discuss test results (Primary Dx); Hypothyroidism; Post menopausal syndrome; Joint pain 07/18/2024 Abstract [facility] [address] [place] [phone] Concha Cote DO 07/18/2024 Abstract [facility] [address] [place] [phone] Concha Cote DO 07/18/2024 Abstract [facility] [address] [phone] Concha Cote DO 07/16/2024 9:30 AM EDT Office Visit [facility] [address] [phone] Concha Cote DO Encounter to establish care (Primary Dx); Fibromyalgia; Hypokalemia; Migraines; Post menopausal syndrome; Hypothyroidism; Screening cholesterol level; Diabetes mellitus screening; Joint pain 07/16/2024 Travel from Last 3 Months Family History Medical History Relation Name Comments Hyperlipidemia Father Fredrick Rodriguez Breast cancer Maternal Grandmother Fidelina Hernandez Breast cancer Mother Soraya Rodriguez Hearing loss Mother Soraya Rodriguez Vision loss Mother Soraya Rodriguez Breast cancer Paternal Grandmother Narciso Rodriguez Relation Name Status Comments Father Fredrick Rodriguez Maternal Grandmother Fidelina David Mother Soraya Rodriguez Paternal Grandmother Narciso Rodriguez Social History Tobacco Use Types Packs/Day Years Used Date Smoking Tobacco: Former Cigarettes 2 15 S tarted: 1980 Smokeless Tobacco: Never Tobacco Cessation:Counseling Given: Not Answered Alcohol Use Standard Drinks/Week Comments Not Currently 0 (1 standard drink = 0.6 oz pur e alcohol) C - Mental Health Answer Date Recorde d [...] Date Benito rded Speak language other than Serbian at home Not on file 03/15/2023 Want [...] Description 10/07/2024 9:15 AM EDT Office Visit [facility] [address] [place] [address] RocaelConcha, [address] [place] [address] Health Maintenance Due Date Last Done Comments CT Colonography 1963 Colonoscopy 1963 Colorectal Cancer Screening 1963 FOBT/FIT 1963 Fit-DNA (Cologuard) 1963 Sigmoidoscopy 1963 HIV Screening 12/14/1978 Hepatitis C Screening 12/14/1981 DTAP/TDAP/TD VACCINES (1 - Tdap) 12/14/1982 Pap Smear 12/14/1984 Breast Cancer Screening 2003 Pneumococcal 50+ years (1 of 1 - PCV) 12/14/2013 Shingles Vaccine (Zoster) (1 of 2) 12/14/2013 COVID-19 VACCINE ( season) 2023 01/08/2021, 04/10/2020, 03/10/2020 Influenza Vaccine (#1) 2024 12/30/2021 Depression Screening (12+) 08/18/2025 08/18/2024 Tobacco Cessation Counseling and Screening (12+) 08/19/2025 08/19/2024 Lipid Panel 07/24/2029 07/24/2024 Procedures Procedure Name Priority Date/Time Associated Diagnosis [...] Vitamin B12 759 232 - 1,245 pg/mL [facility] 07/24/2024 8:59 AM EDT 07/24/2024 Narrative [facility] - 08/02/2024 8:07 PM EDT Performed at: [facility] [id number] Hair Blender: Donald Ayers PhD, Phone: [phone] us Nova White DO LAB BLOOD ORDERABLES Final Resul t Performing Organization Address [facility] de Phone Number [facility] * ESTRADIOL, SENSITIVE (07/24/2024 8:59 AM EDT) Estradiol, Sensitive 3.4 pg/mL [facility] Comment: Female: Follicular: 30.0 - 100.0 Luteal: 70.0 - 300.0 Postmenopausal: < 15.0 Methodology: Liquid chromatography tandem mass spectrometry(LC/MS/MS) Blood 07/24/2024 8:59 AM EDT 07/24/2024 Narrative [facility] - 08/02/2024 8:07 PM EDT Test(s) [id number], Sensitive was developed and its performance characteristics determined by [facility]. It has not been cleared or approved by the Food and Drug Administration. Performed at: - [address] [id number] Hair Blender: Mari Hair MD, Phone: [phone] [facility] LAB BLOOD ORDERABLES Final Resul t Performing Organization Address [facility] Co de Phone Number [facility] * Testosterone, F Eqlib+T LC/MS (07/24/2024 8:59 AM EDT) Pathologist [facility] [place] Testosterone, Total, LC/MS 23.6 7.0 - 40.0 ng/dL [facility] Testosterone, Free 0.54 0.10 - 0.85 ng/dL [facility] % Free Testosterone 2.30 0.50 - 2.80 % [facility] 07/24/2024 8:59 AM EDT 07/24/2024 Narrative [facility] - 08/02/2024 8:07 PM EDT Test(s) [id number], Total, LC/MS was developed and its performance characteristics determined by [facility]. It has not been cleared or approved by the Food and Drug Administration. Performed at: - [facility] [id number] Hair Blender: Mari Hair MD, Phone: [phone] Nova White DO LAB BLOOD ORDERABLES Final Resul t [facility] * IODINE, SERUM/PLASMA (07/24/2024 8:59 AM EDT) Iodine, Serum or Plasma 45.3 31.1 - 64.6 ug/L [facility] Comment:Limit of quantitatio n = 20 Blood 07/24/2024 8:59 AM EDT 07/24/2024 Narrative [facility] - 08/02/2024 8:07 PM EDT Test(s) [id number], Serum or Plasma was developed and its performance characteristics determined by [facility]. It has not been cleared or approved by the Food and Drug Administration. Performed at: 02 - [address] [id number] Hair Blender: Mari Hair MD, Phone: [phone] [facility] White LAB BLOOD ORDERABLES Final Resul t Performing Organization Address [facility] Co de Phone Number [facility] * (ABNORMAL) Vitamin D, 25-Hydroxy (07/24/2024 8:59 AM EDT) Vitamin D, 25-Hydroxy 26.7(L) 30.0 - 100.0 ng/mL [facility] Comment: Vitamin D deficiency has been defined by the [place] of Medicine and an Endocrine Society practice guideline as a level of serum 25-OH vitamin D less than 20 ng/mL (1,2). The Endocrine Society went on to further define vitamin D insufficiency as a level between 21 and 29 ng/mL (2). 1. IOM ([place] of Medicine). 2010. Dietary reference intakes for calcium and D. [place]: The National Academies Press. 2. Corrina MF, Cedrick MONTERO, Rochelle MCKOY, et al. Evaluation, treatment, and prevention of vitamin D deficiency: an Endocrine Society clinical practice guideline. JCEM. 2010; 96(7):1911-30. Blood 07/24/2024 8:59 AM EDT 07/24/2024 Narrative [facility] - 08/02/2024 8:07 PM EDT Performed at: [address] [place] [id number] Hair Blender: Donald Ayers PhD, Phone: [phone] Nova White DO LAB BLOOD ORDERABLES Final Resul t Performing Organization Address [facility] de Phone Number [facility] * Progesterone (07/24/2024 8:59 AM EDT) Progesterone 0.2 ng/mL [facility] Comment: Follicular phase 0.1 - 0.9 Luteal phase 1.8 - 23.9 Ovulation phase 0.1 - 12.0 First trimester 11.0 - 44.3 Second trimester 25.4 - 83.3 Third trimester 58.7 - 214.0 Postmenopausal 0.0 - 0.1 Blood 07/24/2024 8:59 AM EDT 07/24/2024 Narrative [facility] - 08/02/2024 8:07 PM EDT Performed at: [address] [place] [id number] Hair Blender: Donald Ayers PhD, Phone: [phone] Nova White DO LAB BLOOD ORDERABLES Final Resul t Performing Organization Address [facility] de Phone Number [facility] * (ABNORMAL) DHEA Sulfate (07/24/2024 8:59 AM EDT) [facility] DHEA-Sulfate 24.9(L) 29.4 - 220.5 ug/dL [facility] Blood 07/24/2024 8:59 AM EDT 07/24/2024 Narrative [facility] - 08/02/2024 8:07 PM EDT Performed at: [address] [place] [id number] Hair Blender: Donald Ayers PhD, Phone: [phone] Nova White DO LAB BLOOD ORDERABLES Final Resul t Performing Organization Address [facility]/ZIP Co de Phone Number [facility] * CBC with platelet count + [...] PM EDT Performed at: 01 - [facility] [address] [id number] Hair Blender: Donald Ayers PhD, Phone: [phone] us Nova White DO LAB BLOOD ORDERABLES Final Resul t [facility] * T3, free (07/24/2024 8:59 AM EDT) Pathologist [facility] [place] Triiodothyronin e,Free,Serum 2.9 2.0 - 4.4 pg/mL [facility] Blood 07/24/2024 8:59 AM EDT 07/24/2024 Narrative [facility] - 08/02/2024 8:07 PM EDT Performed at: [address] [place] [id number] Hair Blender: Donald Ayers PhD, Phone: [phone] Nova White DO LAB BLOOD ORDERABLES Final Resul t Performing Organization Address [facility] Phone Number [facility] * TSH (07/24/2024 8:59 AM EDT) Pathologist [facility] [place] TSH 2.800 0.450 - 4.500 uIU/mL [facility] Blood 07/24/2024 8:59 AM EDT 07/24/2024 Narrative [facility] - 08/02/2024 8:07 PM EDT Performed at: [address] [place] [id number] Hair Blender: Donald Ayers PhD, Phone: [phone] us Nova White DO LAB BLOOD ORDERABLES Final Resul t Performing Organization Address [facility] de Phone Number [facility] * T4, free (07/24/2024 8:59 AM EDT) Pathologist [facility] [place] T4,Free(Direct) 0.99 0.82 - 1.77 ng/dL [facility] Thyroxine (T4) 6.9 4.5 - 12.0 ug/dL [facility] Blood 07/24/2024 8:59 AM EDT 07/24/2024 Narrative [facility] - 08/02/2024 8:07 PM EDT Performed at: [address] [place] [address] [place] [id number] Hair Blender: Donald Ayers PhD, Phone: [phone] Nova White DO LAB BLOOD ORDERABLES Final Resul t Performing Organization Address [facility] de Phone Number [facility] * Vitamin B6, Plasma (07/24/2024 8:59 AM EDT) Vitamin B6 17.5 3.4 - 65.2 ug/L [facility] Comment: Deficiency: <3.4 Marginal: 3.4 - 5.1 Adequate: >5.1 Blood 07/24/2024 8:59 AM EDT 07/24/2024 Narrative [facility] - 08/02/2024 8:07 PM EDT Test(s) [id number] was developed and its performance characteristics determined by [facility]. It has not been cleared or approved by the Food and Drug Administration. Performed at: - [address] [id number] Hair Blender: Mari Hair MD, Phone: [phone] Nova White DO LAB BLOOD ORDERABLES Final Resul t Performing Organization Address [facility] Phone Number [facility] * Phosphorus (07/24/2024 8:59 AM EDT) Pathologist [facility] [place] Phosphorus, Serum 3.3 3.0 - 4.3 mg/dL [facility] Blood 07/24/2024 8:59 AM EDT 07/24/2024 Narrative [facility] - 08/02/2024 8:07 PM EDT Performed at: - [address] [id number] Hair Blender: Donald Ayers PhD, Phone: [phone] Nova White DO LAB BLOOD ORDERABLES Final Resul t Performing Organization Address [facility] de Phone Number [facility] * Hemoglobin A1c (07/24/2024 8:59 AM EDT) Pathologist [facility] [place] Hemoglobin A1c 5.2 4.8 - 5.6 % [facility] Comment: Prediabetes: 5.7 - 6.4 Diabetes: >6.4 Glycemic control for adults with diabetes: <7.0 Blood 07/24/2024 8:59 AM EDT 07/24/2024 Narrative [facility] - 08/02/2024 8:07 PM EDT Performed at: [address] [id number] Hair Blender: Donald Ayers PhD, Phone: [phone] Nova White DO LAB BLOOD ORDERABLES Final Resul t Performing Organization Address [facility] de Phone Number [facility] * Cortisol, AM (07/24/2024 8:59 AM EDT) [facility] Cortisol - AM 11.3 6.2 - 19.4 ug/dL [facility] Blood 07/24/2024 8:59 AM EDT 07/24/2024 Narrative [facility] - 08/02/2024 8:07 PM EDT Performed at: [address] [id number] Hair Blender: Donald Ayers PhD, Phone: [phone] us Nova White DO LAB BLOOD ORDERABLES Final Resul t Performing Organization Address [facility] Co de Phone Number [facility] * (ABNORMAL) Lipid panel (07/24/2024 8:59 AM EDT) Pathologist [facility] [place] Cholesterol, Total 251(H) 100 - 199 mg/dL [facility] Triglycerides 95 0 - 149 mg/dL [facility] HDL Cholesterol 73 >39 mg/dL [facility] VLDL Cholesterol Jp 16 5 - 40 mg/dL [facility] LDL Calculated 162(H) 0 - 99 mg/dL [facility] Blood 07/24/2024 8:59 AM EDT 07/24/2024 Narrative [facility] - 08/02/2024 8:07 PM EDT Performed at: 01 - [facility] [address] [id number] Hair Blender: Donald Ayers PhD, Phone: [phone] us Nova White DO LAB BLOOD ORDERABLES Final Resul t Performing Organization Address [facility]/ZIP Co de Phone Number [facility] * Comprehensive metabolic panel (07/24/2024 8:59 AM EDT) [facility] Glucose, Serum 83 70 - 99 mg/dL [...] PM EDT Performed at: 01 - [facility] [address] [id number] Hair Blender: Donald Ayers PhD, Phone: [phone] us Nova White DO LAB BLOOD ORDERABLES Final Resul t Performing Organization Address [facility]/ZIP Co de Phone Number [facility] from Last 3 Months Insurance Care Teams Lace Stripper Relationship Specialty Start Date End Date Concha Cote DO [address] [place] [address] PCP - General Family Medicine 07/16/24
--- OUTSIDE RECORDS SUMMARY | 2024-10-03 11:44 | XMS_ITS | Encounter Summary ---
Author Organization [facility] ([place], [place], [place], [place]) Address [address] [place] [address] Care Team Providers Care [employer] Name Role Phone Concha Cote DO Primary Care Provider [phone] Encounter Details Date Type Department Care Team (Late st Contact Info) Description 07/18/2024 Abstract [facility] [address] [place] [address] Concha Cote DO [address] [place] [address] Social History Tobacco Use Types Packs/Day Years Used Date Smoking Tobacco: Former Cigarettes 2 15 S tarted: 1980 Smokeless Tobacco: Never Alcohol Use Standard Drinks/Week Comments Not Currently 0 (1 standard drink = 0.6 oz pur e alcohol) [facility] - Mental Health Answer Date Recorde [...] Date Benito rded Speak language other than Luxembourger at home Not on file 03/15/2023 Want [...] Description 10/07/2024 9:15 AM EDT Office Visit [facility] [address] [place] [address] Concha Cote DO [address] [place] [address] documented as of this encounter Visit Diagnoses Not on filedocumented in this encounter Care Teams [employer] Relationship Specialty Start Date End Date Concha Cote DO [address] [place] [address] PCP - General Family Medicine 07/16/24 documented as of this encounter
--- OUTSIDE RECORDS SUMMARY | 2024-10-03 11:45 | XMS_ITS | Clinical Summary ---
Author Organization [facility] Address [address] [place] [address] Care Team Providers Care Reel Film Inspector Name Role Phone Concha Cote DO Primary Care Provider [phone] Allergies No known active allergies Medications estradiol (ESTRACE) 1 MG tablet Take 1 tablet by mouth Daily. 3 Active levothyroxine (SYNTHROID, LEVOTHROID) 25 MCG tablet Take 1 tablet by mouth Daily. 3 Active potassium chloride (MICRO-K) 10 MEQ CR capsule Take 1 capsule by mouth Daily. 3 Active venlafaxine XR (EFFEXOR-XR) 75 MG 24 hr capsule Take 1 capsule by mouth Daily. 3 Active CINNAMON PO Take by mouth Daily. Active Red Bud-3 Fatty Acids (OMEGA-3 CF PO) Take by mouth Daily. Active COLLAGEN PO Take by mouth Daily. Active TURMERIC PO Take by mouth Daily. Active Magnesium Cl-Calcium Carbonate (SLOW MAGNESIUM/CALCI UM PO) Take by mouth Daily. Active cyclobenzaprine (FLEXERIL) 5 MG tablet TAKE ONE TABLET BY MOUTH THREE TIMES DAILY NEEDED MAY CAUSE DROWSINESS 3 Active cetirizine (ZyrTEC Allergy) 10 MG tablet 4 Active meloxicam (MOBIC) 15 MG tablet TAKE 1 TABLET BY MOUTH DAILY WITH FOOD NEEDED 30 tablet 4 Active multivitamin with minerals (MULTIVITAMIN ADULT PO) Take 1 tablet by mouth Daily. Active Polyethylene Glycol 3350 (MIRALAX PO) Take by mouth. Ac tive ASHWAGANDHA PO Take by mouth. Active estradiol (CLIMARA) 0.0375 MG/24HR Place 1 patch on the skin as directed by provider 1 (One) Time Per Week. Active Progesterone (PROMETRIUM) 200 MG capsule Take 1 capsule by mouth Daily. Active Vitamin D-Vitamin K (K2 PLUS D3 PO) Take by mouth. Act jim Active Problems Problem Noted Date Diagnosed Date Degenerative arthritis of left knee 06/12/2023 Encounters Date Type Department Care Team Description 08/30/2024 11:00 AM EDT Ancillary Procedure [facility] [address] [place] [address] [address] [place] [address] 08/30/2024 10:20 AM EDT Office Visit [facility] [address] [place] [phone] Grady Bains MD Status post total left knee replacement (Primary Dx); Postoperative examination 08/30/2024 Travel from Last 3 Months Family History Medical History Relation Name Comments Cancer Mother Soraya Rodriguez breast Relation Name Status Comments Father Mother Soraya Rodriguez Social History Tobacco Use Types Packs/Day [...] Sign Reading Time Taken Comments Blood Pressure 138/88 06/12/2023 1:56 PM EDT Pulse - - Temperature 36.2 C (97.1 F) 09/13/2023 10:23 AM EDT Respiratory Rate - - Oxygen Saturation - - Inhaled Oxygen Concentration - - Weight 79.4 kg (175 lb) 08/30/2024 10:39 AM EDT Height 174.5 cm (5' 8.7 ) 08/30/2024 10:39 AM ED T Body Mass Index 26.07 08/30/2024 10:39 AM EDT Plan of Treatment Health Maintenance Due Date Last Done Comments Annual Gynecologic Pelvic an d Breast Exam 1965 TDAP/TD VACCINES (1 - Tdap) 12/14/1982 MAMMOGRAM 2003 COLOGUARD 12/14/2008 COLON CANCER SCREENING 5 YEA R SIGMOIDOSCOPY 12/14/2008 COLONOSCOPY 12/14/2008 COLORECTAL CANCER SCREENING 12/14/2008 CT COLONOGRAPHY 12/14/2008 FECAL OCCULT BLOOD TEST 12/14/2008 FIT Testing (1 year) 12/14/2008 Pneumococcal Vaccine 50+ (1 of 1 - PCV) 12/14/2013 ZOSTER VACCINE (1 of 2) 12/14/2013 ANNUAL PHYSICAL 04/06/2022 HEPATITIS C SCREENING 04/06/2022 COVID-19 Vaccine ( season) 2023 01/08/2021, 04/10/2020, 03/10/2020 INFLUENZA VACCINE 12/04/2024 12/04/2023, , 12/30/2021 Procedures Procedure Name Priority Date/Time Associated Diagnosis Comments XR KNEE 3+ VW W SUNRISE LEFT Routine 08/30/2024 10:58 AM EDT Status post total left knee replacement from Last 3 Months Results * XR Knee 3+ View With [place] Left (08/30/2024 10:58 AM EDT) Anatomical Region Laterality Modality Lower Extremities, Knee Left Radiogra [facility] Imaging Narrative 08/30/2024 11:05 AM EDT Left Knee Radiographs Indication: status-post left total knee arthroplasty Views: AP, lateral, and sunrise views of the left knee Comparison: no change compared to prior study, 09/13/2023 Findings: The components are well aligned, with no signs of loosening or failure. Grady Bains MD IMG DIAGNOSTIC IMAGING ORDERAB LES Final Result from Last [address] [address] Care Teams Reel Film Inspector Relationship Specialty Start Date End Date Concha Cote DO [address] [place] [address] [address] [place] [address] PCP - General Family Medicine 08/30/24
== END 2024-10-02 23:59 | disposition home or self-care (01) ==
LOC: LAB.DROPOF 10-03 11:40
PROVIDERS: PCP Student in an Organized Health Care Education/Training Program; Visit Provider Student in an Organized Health Care Education/Training Program
DX: R30.0 Dysuria (principal)
CPT/HCPCS: 87086; 87088; 87186

== ENCOUNTER 2025-01-20 15:09 | Outpatient (CLI) | payer OTHER, SELFPAY ==
--- NOTE | 2025-01-20 15:30 | MM_ITS ---
PROCEDURE INFORMATION: Exam: MG Bilateral Screening 3D Mammography Exam date and time: 01/20/2025 3:08 PM Age: 59 years old Clinical indication: Screening examination, her mother, maternal grandmother, maternal aunt and paternal grandmother had breast cancer. TECHNIQUE: Imaging protocol: Bilateral Screening tomosynthesis and 2D mammography including computer-aided detection (CAD) when performed. COMPARISON: 1. MG MM DIG SCREENING MAMM BI W/CAD 01/08/2024 8:51 AM 2. MG MM DIG SCREENING MAMM BI W/CAD 08/05/2022 8:20 AM 3. MG MM DIG SCREENING MAMM BI W/CAD 07/20/2021 3:08 PM FINDINGS: MAMMOGRAPHY: Breast composition: There are scattered areas of fibroglandular density. Mass: None. Architectural distortion: None. Calcifications: No suspicious calcifications. Asymmetric density: None. Skin thickening: None. Axillary adenopathy: None. IMPRESSION: No mammographic evidence of malignancy. Annual screening is recommended unless otherwise clinically indicated. Given the reported risk factors, a breast cancer risk assessment may prove useful for further evaluation. ASSESSMENT: BI-RADS Category 1: Negative.
== END 2025-01-20 23:59 | disposition home or self-care (01) ==
LOC: RAD 15:09
PROVIDERS: Visit Provider Obstetrics & Gynecology
DX: Z12.31 Encounter for screening mammogram for malignant neoplasm of breast (principal); R92.323 Mammographic fibroglandular density, bilateral breasts; Z80.3 Family history of malignant neoplasm of breast
CPT/HCPCS: 77063; 77067

== ENCOUNTER 2025-03-04 12:42 | Outpatient (CLI) | payer SELFPAY ==
--- OUTSIDE RECORDS SUMMARY | 2023-12-11 09:00 | XMS_ITS ---
Author Organization [facility] Address [address] [place] [id number] Care Team Providers Care Foreign Exchange Services Manager Name Role Phone Lynda Garvey Primary Care Provider Nat Nuñez Unavailable [phone] Gladys Dillard Unavailable [phone] Allergies Allergen (clinical drug ingredient) Drug/Non Drug Allergy documented on EMR Reaction Allergy Type Onset Date Status azithromycin Zithromax Unknown Drug Allergy Acti ve Results Component Value Reference Range Notes P-Comprehensive Metabolic Pa andrew (CMP) Reviewed date:12/13/2023 02:33:24 PM Interpretation:Normal Performing Lab: Notes/Report: Test performed by [email or web address], [employer] [address] [place] [address] , [address], [place] [address] Saúl Rodriguez MD, Service Order Dispatcher Chief CLIA: [id number] Sodium 141 135-145 mmol/L Potassium 4.4 3.5-5.3 mmol/L Chloride 105 97-108 mmol/L CO2 26 22-32 mmol/L Glucose 88 65-99 mg/dL BUN 15 6-20 mg/dL Creatinine 0.66 0.50-1.00 mg/dL Calcium 9.2 8.6-10.4 mg/dL eGFR by Creatinine 100 >59 mL/min/1.73m2 Protein 6.9 6.0-8.3 g/dL Albumin 4.4 3.5-5.3 g/dL Alkaline Phosphatase 72 35-121 IU/L ALT (SGPT) 14 <5-47 IU/L AST (SGOT) 19 <5-40 IU/L Bilirubin, Total 0.4 <0.2-1.2 mg/dL A/G Ratio 1.8 1.1-2.5 P-T4 Free (thyroxine) Reviewed date:12/13/2023 02:32:47 PM Interpretation:1.00-normal Performing Lab: Notes/Report: Test performed by [employer] [address] [place] [address] , [place] [address] Saúl Rodriguez MD, Service Order Dispatcher Chief CLIA: [id number] Thyroxine Free (free T4) 1.00 0.86-1.76 ng/dL P-Lipid Panel Reviewed date:12/13/2023 02:31:59 PM Interpretation:LDL 120; HDL65; TG225 Performing Lab: Notes/Report: Test performed by [employer] [address] , [place] [address] Saúl Rodriguez MD, Service Order Dispatcher Chief CLIA: [id number] Cholesterol 230 <200 mg/dL Triglycerides 225 <150 mg/dL HDL Cholesterol 65 >39 mg/dL Cholesterol / HDL Ratio 3.54 0.00-4.44 Ratio Non-HDL Cholesterol 165 <130 mg/dL LDL Cholesterol (Calculation) 120 <130 mg/dL Less than 100 mg/dL Optimal 100 to 129 mg/dL Near Optimal/ Above Optimal 130 to 159 mg/dL Borderline High 160 to 189 mg/dL High 190 mg/dL and above Very High * Categories as recommended by the 2004 ATPIII guidelines LDL Cholesterol Levels* LDL/HDL Ratio 1.8 <3.3 Ratio LDL Cholesterol Patient History Test Date: 09/05/2022 LDL Results: 122 Units: mg/dL % Change: - Test Date: 12/11/2023 LDL Results: 120 Units: mg/dL % Change: -1% P-TSH Reviewed date:12/13/2023 02:32:21 PM Interpretation:2.74 Performing Lab: Notes/Report: Test performed by [email or web address], [address] , [place] [facility] [place] [address] Saúl Rodriguez MD, Service Order Dispatcher Chief CLIA: [id number] TSH 2.74 0.43-5.25 mU/L REASON FOR VISIT refills ,labs, Needs mammogram & flu vaccine Medications Medication SIG (Take, Route, Frequency, Duration) Notes Start Date End Date Status Meloxicam 15 MG 1 tablet Orally Once a day; Duration: 90 day(s) 10/19/2022 Active Cyclobenzaprine HCl 5 MG 1 tab(s) orally 3 times a day, prn Active Levothyroxine Sodium 25 MCG TAKE 1 TABLET BY MOUTH ONCE DAILY; Duration: 90 Active Venlafaxine HCl ER 75 MG 1 tab(s) orally once a day; Duration: 90 days Active Estradiol 1 MG 1 tab(s) orally once a day Active Potassium Chloride ER 10 MEQ 1 cap(s) orally once a day; Duration: 90 days Active Cinnamon 500 MG 1 cap(s) orally once daily Active Kent 3-5-6-7-9 Fatty Acids - as directed Orally 2 once a day Active Turmeric Curcumin - as directed Orally 1,000 mg daily Active Slow Magnesium/Calcium 70-117 MG as directed Orally 2 capsules daily Activ e Multi Vitamin - 1 tablet Orally Once a day; Duration: 30 day(s) Active ZyrTEC 10 MG 1 tablet Orally Once a day; Duration: 30 day(s) Active Problems Problem Type SNOMED Code ICD Code Onset Dates Problem Status W/U Status Risk Notes Problem Arthritis (6785451) Arthritis (M19.90) Active confirmed Vital Signs Blood pressure systolic 130 mm Hg 12/11/19 24 Blood pressure diastolic 80 mm Hg 024 Heart Rate 89 /min 12/11/2023 Height 68.75 in 12/11/2023 Weight 170.0 lbs 12/11/2023 BMI 25.28 kg/m2 12/11/2023 Encounters Encounter Location Date Provider Diagnosis [facility] [address] [facility] [address] [place], [place] [id number] 12/11/2023 Gladys Dillard Depressive disorder F32.9 ; Hypothyroidism (acquired) E03.9 ; Primary generalized (osteo)arthritis M15.0 ; Hypokalemia E87.6 ; Lipid screening Z13.220 and Arthritis M19.90 Assessments Encounter Date Diagnosis (ICD Code) Assessment Notes Treatment Notes Treatment Clinical Notes Section Notes 12/11/2023 Depressive disorder (ICD-10 - F32.9) 12/11/2023 Hypothyroidism (acquired) (ICD-10 - E03.9) depending on thyroid labs, may stop thyroid med and repeat TSH i 3 months 12/11/2023 Primary generalized (osteo)arthritis (ICD-10 - M15.0) 12/11/2023 Hypokalemia (ICD-10 - E87.6) 12/11/2023 Lipid screening (ICD-10 - Z13.220) 12/11/2023 Arthritis (ICD-10 - M19.90) Plan Of Treatment Medication Medication Name Sig Start Date Stop Date Notes Meloxicam 15 MG 1 tablet Orally Once a day; Duration: 90 day(s) 10/19/2022 Cyclobenzaprine HCl 5 MG 1 tab(s) orally 3 times a day, prn Venlafaxine HCl ER 75 MG 1 tab(s) orally once a day; Duration: 90 days Potassium Chloride ER 10 MEQ 1 cap(s) or ally once a day; Duration: 90 days Treatment Notes Assessment Notes Hypothyroidism (acquired) depending on t hyroid labs, may stop thyroid med and repeat TSH i 3 months Next Appt Details Follow Up: 1 Year,and prn, R osiel: Progress Notes * WIN FRANCISADOB:1965 ([age] yo F)Acc No.[id number]:12/11/2023 Progress Notes Patient: SANTOS PEARCE Provider: ZENA Robin :1965 A ge:57 Y S ex:Female Date:12/11/2023 Address:[address] [place] [address] ROBERTO Valente [id number] Pcp:Lynda Garvey Subjective: * Chief Complaints: * 1 . Refills ,labs. 2. Needs mammogram & flu vaccine. * HPI: H PI: 57 year old female presents with c/o Patient is here today for?lab work with refills. Pt sts she needs refills on all of her medications. Pt would like to talk about getting off of the Levothyroxine medication that she takes. * ROS: D ERMATOLOGY: no R castillo. n o H tomás. G ASTROENTEROLOGY: no N ausea. n o V omiting. n o D iarrhea.? U ROLOGY: no D ifficulty urinating. n o B lood in urine. * Medical History: M igraine headache. * Surgical History: C section , breast biopsy- benign 2005, hysterectomy, abdominal 2011, left knee replacement 2023. * Hospitalization/Major Diagno stic Procedure: s ee above . * Family History: F ather: 87 yrs, parkinsons. M other: alive. M aternal Grand Father: , diabetes. 1 son(s) , 1 daughter(s) - healthy. . * Social History: C URRENT TOBACCO USE S moking Status: Patient does NOT smoke. C affeine: yes, frequency:coffee, tea, pop. Home smoke detector use: yes. Marital Status: . Past smoking status: no. Alcohol: Yes, Type: , Frequency: ,Years: , Determination:, rare. * Medications: T aking ZyrTEC 10 MG Tablet Chewable 1 tablet Orally Once a day , Taking Multi Vitamin - Tablet 1 tablet Orally Once a day , Taking Slow Magnesium/Calcium 70-117 MG Tablet Delayed Release as directed Orally , Notes to Pharmacist: 2 capsules daily, Taking Turmeric Curcumin - Capsule as directed Orally , Notes to Pharmacist: 1,000 mg daily, Taking Kent 3-5-6-7-9 Fatty Acids - Capsule as directed Orally , Notes to Pharmacist: 2 once a day, Taking Cinnamon 500 MG Capsule 1 cap(s) orally once daily , Taking Estradiol 1 MG Tablet 1 tab(s) orally once a day , Taking Cyclobenzaprine HCl 5 MG Tablet 1 tab(s) orally 3 times a day, prn , Taking Meloxicam 15 MG Tablet 1 tablet Orally Once a day , Taking Levothyroxine Sodium 25 MCG Tablet TAKE 1 TABLET BY MOUTH ONCE DAILY , Taking Venlafaxine HCl ER 75 MG Tablet Extended Release 24 Hour 1 tab(s) orally once a day , Taking Potassium Chloride ER 10 MEQ Capsule Extended Release 1 cap(s) orally once a day , Medication List reviewed and reconciled with the patient * Allergies: Z ithromax. Objective: * Vitals: W t:170.0, Temp:98.1, BP:130/80, HR:89, O2 Sat:98% on RA, Nurse:ISIS, Ht: 68.75, BMI:25.28. * Examination: G eneral Examination: General Appearance: NAD, appears healthy, alert, pleasant. H EENT: sclera and conjunctiva clear, PERRLA, TM's normal, translucent. O ral cavity: mucosa moist and WNL, no erythema. N cassi: supple, no lymphadenopathy, no carotid bruits, no thyromegaly. H eart: RRR. L ungs: CTAB A&P. N eurologic Exam:? alert and oriented. E xtremities: no leg edema. Assessment: * Assessment: 1. D epressive disorder - F32.9 (Primary) 2 . H ypothyroidism (acquired) - E03.9 3 . P rimary generalized (osteo)arthritis - M15.0 4 . H ypokalemia - E87.6 5 . L ipid screening - Z13.220 6 . A rthritis - M19.90 Plan: * Treatment: 2. H ypothyroidism (acquired) L AB: P-T4 Free (thyroxine) (Collection Date & Time - 12/11/2023 01:47 PM) 1 .00-normal Value Reference Range T hyroxine Free (free T4) 1.00 0.86-1.76 - ng/d L * Gladys Dillard 12/13/2023 2:32:36 PM > , See encounter note ?LAB: P-TSH (Collection Date & Time - 12/11/2023 01:47 PM)?2.74* Value Reference Range T SH 2.74 0.43-5.25 - mU/L * Gladys Dillard 12/13/2023 2:32:15 PM > , See encounter note Notes: depending on thyroid labs, may stop thyroid med and repeat TSH i 3 months??3.?Hypokalemia? Refill Potassium Chloride ER Capsule Extended Release, 10 MEQ, 1 cap(s), orally, once a day, 90 days, 90 Capsule, Refills 1.?LAB: P-Comprehensive Metabolic Panel (CMP) (Collection Date & Time - 12/11/2023 01:47 PM)?Normal* Value Reference Range A /G Ratio 1.8 1.1-2.5 - * A lbumin 4.4 3.5-5.3 - g/dL * A lkaline Phosphatase 72 35-121 - IU/L * A LT (SGPT) 14 <5-47 - IU/L * A ST (SGOT) 19 <5-40 - IU/L * B ilirubin, Total 0.4 <0.2-1.2 - mg/dL * B UN 15 6-20 - mg/dL * C alcium 9.2 8.6-10.4 - mg/dL * C hloride 105 97-108 - mmol/L * C O2 26 22-32 - mmol/L * C reatinine 0.66 0.50-1.00 - mg/dL * G lucose 88 65-99 - mg/dL * P otassium 4.4 3.5-5.3 - mmol/L * S odium 141 135-145 - mmol/L * P rotein 6.9 6.0-8.3 - g/dL * e GFR by Creatinine 100 >59 - mL/min/1.73m2 * Gladys Dillard 12/13/2023 2:33:16 PM > , See encounter note 4.?Lipid screening?LAB: P-Lipid Panel (Collection Date & Time - 12/11/2023 01:47 PM)?LDL 120; HDL65; TG225* Value Reference Range C holesterol / HDL Ratio 3.54 0.00-4.44 - Ratio * C holesterol 230 H <200 - mg/dL * H DL Cholesterol 65 >39 - mg/dL * L DL Cholesterol (Calculation) 120 <130 - mg/d L * L DL/HDL Ratio 1.8 <3.3 - Ratio * N on-HDL Cholesterol 165 H <130 - mg/dL * T riglycerides 225 H <150 - mg/dL * Gladys Dillard 12/13/2023 2:25:34 PM > , See encounter note 5.?Arthritis? Refill Cyclobenzaprine HCl Tablet, 5 MG, 1 tab(s), orally, 3 times a day, prn, 30, Refills 1;?Refill Meloxicam Tablet, 15 MG, 1 tablet, Orally, Once a day, 90 day(s), 90 Tablet, Refills 1.? * Procedure Codes: 9 4760 PULSE OX * Follow Up: 1 Year,and prn * Images: Billing Information: * Visit Code: 34370 Office Visit, Est Pt., Level 4. * Procedure Codes: 32847 PULSE OX. * Electronic signature of Cherise Dillard APRN on 03/04/2025 at 12:46 PM EST Sign off status: Pending * Provider: ZENA Robin Date: 1 Generated for Amelia morales/Lori/Jannet on: 12:46 PM EST History and Physical Notes * HPI (History of Present Illness) Category Sub-Category Detail Notes Category Not es HPI Patient is here today for lab wo rk with refills. Pt sts she needs refills on all of her medications. Pt would like to talk about getting off of the Levothyroxine medication that she takes Examination Category Sub-Category Detail Notes Category Not es General Examination HEENT: sclera and c onjunctiva clear, PERRLA, TM's normal, translucent Heart: RRR Lungs: CTAB A&P Extremities: no leg edema General Appearance: NAD, appears healthy , alert, pleasant Neurologic Exam: alert and oriented Neck: supple, no lymphaden opathy, no carotid bruits, no thyromegaly Oral cavity: mucosa moist and WNL , no erythema
--- OUTSIDE RECORDS SUMMARY | 2024-01-30 04:30 | XMS_ITS ---
Author [facility] Address [address] [place] [id number] Care Team Providers Care Vegetable Buncher Name Role Phone Lynda Garvey Primary Care Provider Nat Nuñez Unavailable [phone] Gladys Dillard Unavailable [phone] Allergies Allergen (clinical drug ingredient) Drug/Non Drug Allergy documented on EMR Reaction Allergy Type Onset Date Status azithromycin Zithromax Unknown Drug Allergy Acti ve Results Component Value Reference Range Notes x ray : 1st digit, left foot Reviewed date:01/31/2024 11:37:38 AM Interpretation: Performing Lab: Notes/Report: REASON FOR VISIT possible broken toe Medications Medication SIG (Take, Route, Frequency, Duration) Notes Start Date End Date Status Cinnamon 500 MG 1 cap(s) orally once daily Active Estradiol 1 MG 1 tab(s) orally once a day Active Potassium Chloride ER 10 MEQ 1 cap(s) orally once a day; Duration: 90 days Active Venlafaxine HCl ER 75 MG 1 tab(s) orally once a day; Duration: 90 days Active Cyclobenzaprine HCl 5 MG 1 tab(s) orally 3 times a day, prn Active Slow Magnesium/Calcium 70-117 MG as directed Orally 2 capsules daily Activ e Turmeric Curcumin - as directed Orally 1,000 mg daily Active Kent 3-5-6-7-9 Fatty Acids - as directed Orally 2 once a day Active ZyrTEC 10 MG 1 tablet Orally Once a day; Duration: 30 day(s) Active Multi Vitamin - 1 tablet Orally Once a day; Duration: 30 day(s) Active Meloxicam 15 MG 1 tablet Orally Once a day; Duration: 90 day(s) 10/19/2022 Active Levothyroxine Sodium 25 MCG TAKE 1 TABLET BY MOUTH ONCE DAILY Orally Once a day; Duration: 90 days Active Vital Signs Blood pressure systolic 118 mm Hg 01/30/20 24 Blood pressure diastolic 70 mm Hg 024 Heart Rate 94 /min 01/30/2024 Height 68.75 in 01/30/2024 Weight 172.2 lbs 01/30/2024 BMI 25.61 kg/m2 01/30/2024 Encounters Encounter Location Date Provider Diagnosis [facility] [address] [place], [place] [id number] 01/30/2024 Gladys Dillard Toe pain, left M79.675 Assessments Encounter Date Diagnosis (ICD Code) Assessment Notes Treatment Notes Treatment Clinical Notes Section Notes 01/30/2024 Toe pain, left (ICD-10 - M79.675) continue to protect the toe Plan Of Treatment Treatment Notes Assessment Notes Toe pain, left continue to protect the toe Next Appt Details Follow Up: will notify of te st results, Reason: Progress Notes * WIN FRANCISMICKIEB:1965 ([age] yo F)Acc No.[id number]:01/30/2024 Progress Notes Patient: SANTOS PEARCE Provider: ZENA Robin :1965 A ge:58 Y S ex:Female Date:01/30/2024 Address:[address] [place] [address] [id number] Pcp:Lynda Garvey Subjective: * Chief Complaints: * 1 . Possible broken toe. * HPI: A nkle/Foot: 58 year old female presents with c/o Pain P t complains of lt great toe pain for about 3 months. Pt states that a heater fell on her toe about 3 months ago. Pt states that the toenail is black and falling off and the joint in the toe is extremely painful.? * ROS: D ERMATOLOGY: no R castillo. n o H tomás. G ASTROENTEROLOGY: no N ausea. n o V omiting. U ROLOGY: no D ifficulty urinating. n o B lood in urine. * Medical History: M igraine headache. * Surgical History: C Section , Breast Biopsy- Benign 2005, Hysterectomy, Abdominal 2011, LT Knee Replacement 2023. * Hospitalization/Major Diagno stic Procedure: D enies Past Hospitalization. * Family History: F ather: 87 yrs, [...] 1 cap(s) orally once a day , Taking Venlafaxine HCl ER 75 MG Tablet Extended Release 24 Hour 1 tab(s) orally once a day , Taking Cyclobenzaprine HCl 5 MG Tablet 1 tab(s) orally 3 times a day, prn , Taking Meloxicam 15 MG Tablet 1 tablet Orally Once a day , Taking Levothyroxine Sodium 25 MCG Tablet TAKE 1 TABLET BY MOUTH ONCE DAILY Orally Once a day , Medication List reviewed and reconciled with the patient * Allergies: Z ithromax. Objective: * Vitals: W t:172.2, Temp:97.8, BP:118/70, HR:94, Nurse:sincere, Ht: 68.75, BMI:25.61. * Examination: G eneral Examination: General Appearance: NAD, appears healthy, alert. N eurologic Exam: alert and oriented. E xtremities: left great toe with tender outer mass; no erythema and no edema; nail bed black and growing out . Assessment: * Assessment: 1. T oe pain, left - M79.675 (Primary) S pecify :great toe Plan: * Treatment: Notes: continue to protect the toe?? * Follow Up: w ill notify of test results * Images: Billing Information: * Visit Code: 86605 Office Visit, Est Pt., Level 3. * Procedure Codes: * Electronic signature of Cherise Dillard APRN on 03/04/2025 at 12:46 PM EST Sign off status: Pending * Provider: ZENA Robin Date: 03/31/2023 Generated for Amelia morales/Lori/Jannet on: 12:46 PM EST History and Physical Notes * HPI (History of Present Illness) Category Sub-Category Detail Notes Category Not es Ankle/Foot Pain Pt complains of lt great toe pain for about 3 months. Pt states that a heater fell on her toe about 3 months ago. Pt states that the toenail is black and falling off and the joint in the toe is extremely painful Examination Category Sub-Category Detail Notes Category Not es General Examination Extremities: left great t oe with tender outer mass; no erythema and no edema; nail bed black and growing out General Appearance: NAD, appears healthy , alert Neurologic Exam: alert and oriented
--- OUTSIDE RECORDS SUMMARY | 2025-01-08 10:00 | XMS_ITS | Encounter Summary ---
Author Organization [employer] ([place], [place], [place], [place], [place]) Address [address] [place] [address] Care Team Providers Care Outreach Clinician Name Role Phone Concha Cote DO Primary Care Provider [phone] Reason for Referral * CAT Scan (Routine) - New Request Specialty Diagnoses / Procedures Referred By King t Referred To Contact Radiology Diagnoses Moderate mixed hyperlipidemia not requiring statin therapy Procedures CT CALCIUM SCORING Tamara Swenson DO [address] [place] [address] Phone: tel: fax: Referral ID Status Reason Start Date Expiration Date V isits Requested Visits Authorized [id number] New Request 01/08/2025 01/08/2026 1 1 Reason for Visit * Reason Comments Advice Only HORMONE CONSULT Encounter Details Date Type Department Care Team (Latest Contact Info) Description 01/08/2025 10:00 AM EST Office Visit [facility] [address] [place] [place] [address] Tamara Swenson DO [address] [place] [address] Colon cancer screening (Primary Dx); Atherosclerosis of lumbee coronary artery of lumbee heart without angina pectoris; Moderate mixed hyperlipidemia not requiring statin therapy; Hypothyroidism, unspecified type; Menopause; Hormone replacement therapy; Chronic pain syndrome Social History Tobacco Use Types Packs/Day Years Used Date Smoking Tobacco: Former Cigarettes 2 15 0 03/06/1980 - 1995 Smokeless Tobacco: Never Alcohol Use Standard Drinks/Week Comments Not Currently 0 (1 standard drink = 0.6 oz pur e alcohol) Food Insecurity Answer Date Recorded Food run [...] Date Benito rded Speak language other than Ukrainian at home Not on file 03/15/2023 Want [...] - Inhaled Oxygen Concentration - - Weight - - Height 172.7 cm (5' 8 ) 01/08/2025 10:06 AM EST Body Mass Index - - documented in this encounter Functional Status * Height Answer Date of Assessment Author 68 01/08/2025 10:06 AM Kelsi Lima CMA * Tidal Volume Answer Date of Assessment Author 380 01/08/2025 10:06 AM Kelsi Lima CMA documented as of this encounter Mental Status * Height Answer Entry Date Author 68 01/08/2025 10:06 AM Kelsi Lima CMA * Tidal Volume Answer Entry Date Author 380 01/08/2025 10:06 AM Kelsi Lima CMA documented in this encounter Progress Notes * Tamara Swenson DO - 01/08/2025 10:00 AM EST Subjective: Marci Salamanca is a 59 y.o. female. The following consent language was reviewed verbally with the patient in full: Maribeth, I am using a tool to help me do my notes. It is recording our conversation and creates my notes automatically and I can focus on our discussion instead of typing in the room. Is that okay with you? The patient demonstrated understanding and verbally agreed to the above consent language. All questions were addressed, and the patient provided informed consent to proceed. Chief Complaint Patient presents with Advice Only HORMONE CONSULT I have reviewed and/or updated the following: History of Present Illness Marci Salamanca is a 59 year old female who presents for hormone management and evaluation of inflammation. She has been using an estrogen patch and oral progesterone for several months to address hot flashes and elevated cholesterol levels. She reports that her hot flashes are completely under control since starting hormone therapy, but there has been no repeat cholesterol test since starting the hormones. She has a long-standing history of thyroid dysfunction and is currently on levothyroxine 50 mcg. She was initially prescribed thyroid medication due to fatigue. Recent lab results show a TSH of 1.8, free T4 of 1, and free T3 of 2.5. She does not recall being tested for Cecilio's thyroiditis or the specific cause of her thyroid dysfunction. She experiences ongoing inflammation and pain despite using anti-inflammatory medications. She is keen to understand the cause of her inflammation, which was a primary reason for her consultation. She takes multivitamins but is not currently taking Indolplex. She had a normal CT calcium score several years ago. She is due for a mammogram this month and had a Pap test in February. She has a history of a benign breast lump that was removed due to its size and density. She is concerned about the potential impact of her old dental fillings on her health, considering heavy metal exposure as a possible source of her symptoms. Review of Systems All other systems reviewed and are negative. Objective: Ht 1.727 m (5' 8 ) BMI 26.67 kg/m?? Current Outpatient Medications Medication Instructions cinnamon bark 500 mg capsule 1 cap(s) orally once daily cyclobenzaprine (FLEXERIL) 5 MG tablet Take 1 tablet (5 mg total) by mouth every 6 (six) hours as needed for muscle spasms. estradioL (VIVELLE-DOT) 0.05 mg/24 hr patch 1 patch, transdermal, Twice weekly levothyroxine (SYNTHROID) 50 mcg, oral, Daily magnesium 200 mg tab Take by mouth. meloxicam (MOBIC) 15 MG tablet nitrofurantoin, macrocrystal-monohydrate, (MACROBID) 100 MG capsule 100 mg, 2 times daily omega-3/dha/epa/dpa/fish oil (OMEGA-3 2100 ORAL) Take by mouth. potassium chloride (MICRO-K) 10 mEq CR capsule 10 mEq, Daily progesterone (PROMETRIUM) 200 mg, oral, Every Night turmeric, bulk, 95 % powd Take by mouth. UNKNOWN Ashwaganda 1000mg Boswellia 500mg Vitamin e 670mg Khmer Ginseng 100mg venlafaxine XR (EFFEXOR-XR) 75 mg, oral, Daily Physical Exam Vitals reviewed. Constitutional: Appearance: Normal appearance. HENT: Head: Normocephalic and atraumatic. Eyes: Conjunctiva/sclera: Conjunctivae normal. Neck: Comments: No thyromegaly Cardiovascular: Rate and Rhythm: Normal rate and regular rhythm. Pulses: Normal pulses. Heart sounds: Normal heart sounds. Pulmonary: Effort: Pulmonary effort is normal. Breath sounds: Normal breath sounds. Musculoskeletal: Cervical back: Neck supple. No tenderness. Skin: Comments: Normal nails Neurological: Mental Status: She is alert. Psychiatric: Mood and Affect: Mood normal. Behavior: Behavior normal. Thought Content: Thought content normal. Judgment: Judgment normal. Physical Exam CHEST: Clear to auscultation bilaterally. CARDIOVASCULAR: Normal heart sounds. Results LABS Total Cholesterol: 251 (07/2024) LDL: 162 (07/2024) A1c: 5.2 (07/2024) TSH: 1.8 (11/2024) Free T4: 1 (11/2024) Free T3: 2.5 (11/2024) Free T3: 2.9 Free T4: 0.99 TSH: 2.8 Sed Rate: 3 (2023) C-Reactive Protein: 0.43 (2023) Assessment: 1. Colon cancer screening 2. Atherosclerosis of lumbee coronary artery of lumbee heart without angina pectoris 3. Moderate mixed hyperlipidemia not requiring statin therapy 4. Hypothyroidism, unspecified type 5. Menopause 6. Hormone replacement therapy 7. Chronic pain syndrome No visits with results within 13 Week(s) from this visit. Latest known visit with results is: Office Visit on 10/08/2024 Component Date Value TSH 11/06/2024 1.840 T4,Free(Direct) 11/06/2024 1.00 Thyroxine (T4) 11/06/2024 6.8 Triiodothyronine,Free,Se* 11/06/2024 2.5 Plan: Diagnoses and all orders for this visit: Colon cancer screening Atherosclerosis of lumbee coronary artery of lumbee heart without angina pectoris Moderate mixed hyperlipidemia not requiring statin therapy - NMR LipoProf wSubCls+Graph; Future - CT CALCIUM SCORING; Future Hypothyroidism, unspecified type - Thyroid peroxidase (TPO) antibody; Future - Anti-thyroglobulin antibody; Future - IODINE, SERUM/PLASMA; Future - T3, reverse; Future - SELENIUM\, SERUM/PLASMA; Future Menopause - Testosterone, F Eqlib+T LC/MS; Future - Progesterone; Future - ESTRADIOL, SENSITIVE; Future - DHEA Sulfate; Future - Estrone Sulfate; Future Hormone replacement therapy Chronic pain syndrome Return in about 3 weeks (around 01/29/2025) for Next Scheduled Follow Up zoom lab f/u. Assessment & Plan Menopausal hormone therapy Currently on estrogen patch and oral progesterone for a few months. Reports significant improvementin hot flashes, which are now completely controlled. No current issues with hormone dosing. Discussion about potential need for Indoleplex if estrone levels indicate a need. - Ordered hormone levels to assess current dosing and metabolism of estrogen - Will consider Indoleplex if estrone levels indicate a need Dyslipidemia Cholesterol levels were elevated in July with total cholesterol at 251 mg/dL and LDL at 162 mg/dL. Triglycerides were normal and HDL was excellent. No repeat cholesterol test since starting hormone therapy. Concern about small LDL particles, which are more atherogenic. - Ordered NMR lipoprofile to assess cholesterol particle size - Ordered CT calcium score to assess atherosclerotic burden Hypothyroidism Currently on levothyroxine 50 mcg. Recent labs show TSH at 1.8, free T4 at 1, and free T3 at 2.5. Previous labs showed better T3 levels before dose increase. No known cause for thyroid dysfunction, such as Cecilio's disease, has been identified. Discussion about the importance of determining the root cause of thyroid dysfunction to guide treatment. - Ordered thyroid function tests to assess current levels - Ordered tests to determine presence of Cecilio's disease - Ordered selenium level to assess for deficiency Chronic pain syndrome Reports persistent pain despite use of anti-inflammatories. Concern about underlying causes of inflammation, potentially related to thyroid dysfunction or other autoimmune conditions. Discussion about potential sources of inflammation, including dietary factors and heavy metal exposure. - Ordered tests to assess for Cecilio's disease and consider celiac disease - Discussed potential dietary changes if Cecilio's or celiac disease is diagnosed - Consider heavy metal testing to assess for mercury exposure from dental fillings info for hair analysis from doctors data given Atherosclerotic heart disease risk assessment No family history of heart disease. Discussion about the importance of monitoring cholesterol particle size and atherosclerotic burden. - Ordered CT calcium score to assess atherosclerotic burden General Health Maintenance Due for a mammogram this month. Pap smear was done in February. No history of malignant findings inprevious mammograms. - Ensure mammogram is completed this month This note was partially generated using Phylogyation System, and there may be some incorrect [...] and the clinical opinion of the physician. WORKER documented in this encounter Plan of Treatment Upcoming Encounters Date Type Department Care Team (Late st Contact Info) Description 05/12/2025 10:00 AM EDT Office Visit [facility] [address] [place] [address] Ashleigh Ortiz, COMM[employer] TECHNICIAN [address] [place] [address] Scheduled Orders Name Type Priority Associated Diagnoses Orde r Schedule CT CALCIUM SCORING Imaging Routine Moderate mixed hyperlipidemia not requiring statin therapy Expected: 01/08/2025, Expires: 02/07/2026 documented as of this encounter Procedures Procedure Name Priority Date/Time Associated Diagnosis Comments ESTRONE SULFATE Routine 01/08/2025 10:47 AM EST Menopause ESTRADIOL, SENSITIVE Routine 01/08/2025 10:47 AM EST Menopause NMR LIPOPROF WSUBCLS+GRAPH Routine 01/08/2025 10:47 AM EST Moderate mixed hyperlipidemia not requiring statin therapy TESTOSTERONE, F EQLIB+T LC/MS Routine 01/08/2025 10:47 AM EST Menopause IODINE, SERUM/PLASMA Routine 01/08/2025 10:47 AM EST Hypothyroidism, unspecified type SELENIUM\, SERUM/PLASMA Routine 01/08/2025 10:47 AM EST Hypothyroidism, unspecified type THYROID PEROXIDASE (TPO) ANTIBODY Routine 01/08/2025 10:47 AM EST Hypothyroidism, unspecified type PROGESTERONE Routine 01/08/2025 10:47 AM EST Menopause DHEA SULFATE Routine 01/08/2025 10:47 AM EST Menopause ANTI-THYROGLOBULIN ANTIBODY Routine 01/08/2025 10:47 AM EST Hypothyroidism, unspecified type T3, REVERSE Routine 01/08/2025 10:47 AM EST Hypothyroidism, unspecified type documented in this encounter Results * SELENIUM\, SERUM/PLASMA (01/08/2025 10:47 AM EST) Selenium, Serum/Plasma 129 93 - 198 ug/L [facility] Blood 01/08/2025 10:4 7 AM EST 01/08/2025 Narrative [facility] - 01/27/2025 12:07 PM EST Test(s) [id number], Serum/Plasma was developed and its performance characteristics determined by [facility]. It has not been cleared or approved by the Food and Drug Administration. Performed at: 01 - [address] [id number] Eap Counselor: Mari Hair MD, Phone: [phone] [facility] Mess[facility] DO LAB BLOOD ORDERABLES Final Res ult [facility] * Estrone Sulfate (01/08/2025 10:47 AM EST) Pathologist [facility] Estrone Sulfate([facility]) 116 ng/dL [facility] Comment: This test was developed and its performance characteristics determined by [facility]. It has not been cleared or approved by the Food and Drug Administration. Reference Range: Adult Females: Early Follicular (days 0-6) <10 - 154 Late Follicular (days 7-luteal) 15 - 390 Luteal <10 - 373 Post Menopausal <10 - 69 01/08/2025 10:4 7 AM EST 01/08/2025 Narrative [facility] - 01/27/2025 12:07 PM EST Performed at: 02 - [facility] [address] [place] [id number] Eap Counselor: Michael Justice MD, Phone: [phone] [facility] DO LAB BLOOD ORDERABLES Final Res ult Performing Organization Address City/[facility]/ZIP Co de Phone Number [facility] * DHEA Sulfate (01/08/2025 10:47 AM EST) [facility] DHEA-Sulfate 30.6 29.4 - 220.5 ug/dL [facility] Blood 01/08/2025 10:4 7 AM EST 01/08/2025 Narrative [facility] - 01/27/2025 12:07 PM EST Performed at: 03 - [address] [id number] Eap Counselor: Donald Ayers PhD, Phone: [phone] us [facility] DO LAB BLOOD ORDERABLES Final Res ult [facility] * ESTRADIOL, SENSITIVE (01/08/2025 10:47 AM EST) Pathologist [facility] Estradiol, Sensitive 30.5 pg/mL [facility] Comment: Female: Follicular: 30.0 - 100.0 Luteal: 70.0 - 300.0 Postmenopausal: < 15.0 Methodology: Liquid chromatography tandem mass spectrometry(LC/MS/MS) Blood 01/08/2025 10:4 7 AM EST 01/08/2025 Narrative [facility] - 01/27/2025 12:07 PM EST Test(s) [id number], Sensitive was developed and its performance characteristics determined by [facility]. It has not been cleared or approved by the Food and Drug Administration. Performed at: [address] [id number] Eap Counselor: Mari Hair MD, Phone: [phone] [facility] BLOOD ORDERABLES Final Res ult Performing Organization Address [facility] de Phone Number [facility] * Progesterone (01/08/2025 10:47 AM EST) [facility] Progesterone 2.7 ng/mL [facility] Comment: Follicular phase 0.1 - 0.9 Luteal phase 1.8 - 23.9 Ovulation phase 0.1 - 12.0 First trimester 11.0 - 44.3 Second trimester 25.4 - 83.3 Third trimester 58.7 - 214.0 Postmenopausal 0.0 - 0.1 Blood 01/08/2025 10:4 7 AM EST 01/08/2025 Narrative [facility] - 01/27/2025 12:07 PM EST Performed at: - [address] [id number] Eap Counselor: Donald Ayers PhD, Phone: [phone] [facility] BLOOD ORDERABLES Final Res ult Performing Organization Address City/[facility]/ZIP Co de Phone Number [facility] * Testosterone, F Eqlib+T LC/MS (01/08/2025 10:47 AM EST) [facility] Testosterone, Total, LC/MS 18.6 7.0 - 40.0 ng/dL [facility] Testosterone, Free 0.31 0.10 - 0.85 ng/dL [facility] % Free Testosterone 1.67 0.50 - 2.80 % [facility] 01/08/2025 10:4 7 AM EST 01/08/2025 Narrative [facility] - 01/27/2025 12:07 PM EST Test(s) [id number], Total, LC/MS was developed and its performance characteristics determined by [facility]. It has not been cleared or approved by the Food and Drug Administration. Performed at: - [address] [id number] Eap Counselor: Mari Hair MD, Phone: [phone] [facility] Messi DO LAB BLOOD ORDERABLES Final Res ult Performing Organization Address [facility] Co de Phone Number [facility] * T3, reverse (01/08/2025 10:47 AM EST) Reverse T3 12.1 9.2 - 24.1 ng/dL [facility] Blood 01/08/2025 10:4 7 AM EST 01/08/2025 Narrative [facility] - 01/27/2025 12:07 PM EST Test(s) [id number] T3, Serum was developed and its performance characteristics determined by [facility]. It has not been cleared or approved by the Food and Drug Administration. Performed at: - [facility] [id number] Eap Counselor: Mari Hair MD, Phone: [phone] [facility] LAB BLOOD ORDERABLES Final Res ult Performing Organization Address [facility]/ZIP Co de Phone Number [facility] * IODINE, SERUM/PLASMA (01/08/2025 10:47 AM EST) Iodine, Serum or Plasma 58.4 31.1 - 64.6 ug/L [facility] Comment:Limit of quantitatio n = 20 Blood 01/08/2025 10:4 7 AM EST 01/08/2025 Narrative [facility] - 01/27/2025 12:07 PM EST Test(s) [id number], Serum or Plasma was developed and its performance characteristics determined by [facility]. It has not been cleared or approved by the Food and Drug Administration. Performed at: [address] [id number] Eap Counselor: Mari Hair MD, Phone: [phone] [facility] LAB BLOOD ORDERABLES Final Res ult Performing Organization Address [facility]/ZIP Co de Phone Number [facility] * Anti-thyroglobulin antibody (01/08/2025 10:47 AM EST) Thyroglobulin Ab <1.0 0.0 - 0.9 IU/mL [facility] Comment: Thyroglobulin Antibody measured by [employer] Methodology It should be noted that the presence of thyroglobulin antibodies may not be pathogenic nor diagnostic, especially at very low levels. The assay bridge opener has found that four percent of individuals without evidence of thyroid disease or autoimmunity will have positive TgAb levels up to 4 IU/mL. Blood 01/08/2025 10:4 7 AM EST 01/08/2025 [facility] - 01/27/2025 12:07 PM EST Performed at: - [address] [id number] Eap Counselor: Donald Ayers PhD, Phone: [phone] [facility] Messi DO LAB BLOOD ORDERABLES Final Res ult [facility] * Thyroid peroxidase (TPO) antibody (01/08/2025 10:47 AM EST) Thyroid Peroxidase (TPO) Ab <9 0 - 34 IU/mL [facility] Blood 01/08/2025 10:4 7 AM EST 01/08/2025 Narrative [facility] - 01/27/2025 12:07 PM EST Performed at: 03 - [facility] [address], [place], [place] [id number] Eap Counselor: Donald Ayers PhD, Phone: [phone] us Tamara Mccainley DO LAB BLOOD ORDERABLES Final Res ult [facility] * (ABNORMAL) NMR LipoProf wSubCls+Graph (01/08/2025 10:47 AM EST) LDL-P 1,411(H) <1,000 nmol/L [facility] Comment: Low < 1000 Moderate 1000 - 1299 Borderline-High 1300 - 1599 High 1600 - 2000 Very High > 2000 LDL-C (NIH Calc) ([facility]) 130(H) 0 - 99 mg/dL [facility] Comment: Optimal < 100 Above optimal 100 - 129 Borderline 130 - 159 High 160 - 189 Very high > 189 HDL-C 60 >39 mg/dL [facility] Triglycerides 150(H) 0 - 149 mg/dL [facility] Cholesterol, Total 216(H) 100 - 199 mg/dL [facility] HDL-P (Total) 33.1 >=30.5 umol/L [facility] Small LDL-P 482 <=527 nmol/L [facility] LDL Size 21.3 >20.5 nm [facility] Comment: INTERPRETATIVE INFORMATION PARTICLE CONCENTRATION AND SIZE <--Lower CVD Risk Higher CVD Risk--> LDL AND HDL PARTICLES Percentile in Reference Population HDL-P (total) High 75th 50th 25th Low >34.9 34.9 30.5 26.7 <26.7 Small LDL-P Low 25th 50th 75th High <117 117 527 839 >839 LDL Size <-Large (Pattern A)-> <-Small (Pattern B)-> 23.0 20.6 20.5 19.0 Small LDL-P and LDL Size are associated with CVD risk, but not after LDL-P is taken into account. Large VLDL-P 1.9 <=2.7 nmol/L [facility] Small LDL-P 482 <=527 nmol/L [facility] Large HDL-P 8.4 >=4.8 umol/L [facility] VLDL Size 43.0 <=46.6 nm [facility] LDL Size 21.3 >=20.8 nm [facility] HDL Size 9.2 >=9.2 nm [facility] LP-IR Score 30 <=45 [facility] Comment: INSULIN RESISTANCE / DIABETES RISK MARKERS <--Insulin Sensitive Insulin Resistant--> Percentile in Reference Population Large VLDL-P Low 25th 50th 75th High <0.9 0.9 2.7 6.9 >6.9 Small LDL-P Low 25th 50th 75th High <117 117 527 839 >839 Large HDL-P High 75th 50th 25th Low >7.3 7.3 4.8 3.1 <3.1 VLDL Size Small 25th 50th 75th Large <42.4 42.4 46.6 52.5 >52.5 LDL Size Large 75th 50th 25th Small >21.2 21.2 20.8 20.4 <20.4 HDL Size Large 75th 50th 25th Small >9.6 9.6 9.2 8.9 <8.9 Insulin Resistance Score LP-IR SCORE Low 25th 50th 75th High <27 27 45 63 >63 LP-IR Score is inaccurate if patient is non-fasting. The LP-IR score is a laboratory developed index that has been associated with insulin resistance and diabetes risk and should be used as one component of a physician's clinical assessment. 01/08/2025 10:4 7 AM EST 01/08/2025 Narrative [facility] - 01/27/2025 12:07 PM EST Test(s) [id number]; [id number]-Q; [id number]-Qaxwszhhqlmwz; [id number]- Cholesterol, Total; [id number]-UPQ-D (Total); 823075-Twfwm LDL-P; 128462- LDL Size; 808498-Jkoey VLDL-P; 876220-Jjntt LDL-P; 373068-Zjrgo HDL-P; 493917-JDHL Size; 983085-AYL Size; 844061-CWC Size; 520544- LP-IR Score was developed and its performance characteristics determined by [facility]. It has not been cleared or approved by the Food and Drug Administration. Performed at: - [facility] [id number] Eap Counselor: Mari Hair MD, Phone: [phone] Tamara Swenson DO LAB BLOOD ORDERABLES Final Res ult [facility] documented in this encounter Visit Diagnoses Diagnosis Colon cancer screening- Primary Special screening for malignant neoplasms, colon Atherosclerosis of lumbee coronary artery of lumbee heart without angina pectoris Moderate mixed hyperlipidemia not requiring statin therapy Hypothyroidism, unspecified type Menopause Symptomatic menopausal or female climacteric states Hormone replacement therapy Chronic pain syndrome documented in this encounter Care Teams Outreach Clinician Relationship Specialty Start Date End Date Concha Cote DO [address] [place] [address] PCP - General Family Medicine 07/16/24 01/15/25 documented as of this encounter
--- OUTSIDE RECORDS SUMMARY | 2025-01-16 10:00 | XMS_ITS | Encounter Summary ---
Author Organization [employer] ([place], [place], [place], [place], [place]) Address [address] [place] [address] Care Team Providers Care Splunk Dashboard Developer Name Role Phone Kayden Chan APRN Primary Care Provider [phone] Reason for Referral * CAT Scan (Routine) - Denied Specialty Diagnoses / Procedures Referred By King ingram Referred To Contact Radiology Diagnoses Former cigarette smoker Procedures CT CHEST WITHOUT IV CONTRAST Kayden Chan APRN [address] [place] [address] Phone: tel: fax: [facility] [address] [place] [phone] Phone: tel: fax: Referral ID Status Reason Start Date Expiration Date Visits Re quested Visits Authorized [id number] Denied 01/16/2025 01/16/2026 1 0 * CAT Scan (Routine) - Canceled Specialty Diagnoses / Procedures Referred By King ingram Referred To Contact Radiology Diagnoses Special screening for cancer of the respiratory organs Former cigarette smoker Procedures CT LUNG SCREENING INITIAL Kayden Chan APRN [address] [place] [address] Phone: tel: fax: [facility] [address] [place] [address] Phone: tel: fax: Referral ID Status Reason Start Date Expiration Date V isits Requested Visits Authorized [id number] Canceled 01/16/2025 03/17/2025 1 1 Reason for Visit * Reason Comments Establish Care Former Dr. Rocael spann. Establish care with Ali Encounter Details Date Type Department Care Team (Late st Contact Info) Description 01/16/2025 10:00 AM EST Office Visit [facility] [address] [place] [address] Kayden Chan APRN [address] [place] [address] Annual physical exam (Primary Dx); Special screening for cancer of the respiratory organs; Former cigarette smoker; Vitamin D deficiency; Hypothyroidism; Post menopausal syndrome; Anxiety with depression; Mixed hyperlipidemia Social History Tobacco Use Types Packs/Day Years Used Date Smoking Tobacco: Former Cigarettes 2 15 0 03/06/1980 - 1995 Smokeless Tobacco: Never Tobacco Cessation:Counseling Given: Not Answered Alcohol Use Standard Drinks/Week Comments Not Currently 0 (1 standard drink = 0.6 oz pur e alcohol) [facility] - Mental Health Answer Date Recorde d Little interest or pleasure in doing things Not at all 01/16/2025 Feeling down, depressed, or hopeless Not at all 01/16/2025 Feeling of Stress Not on file 01/16/2025 Food Insecurity Answer Date Recorded Food run [...] Date Benito rded Speak language other than Senegalese at home Not on file 03/15/2023 Want [...] Sign Reading Time Taken Comments Blood Pressure 124/81 01/16/2025 9:55 AM EST Pulse 81 01/16/2025 9:55 AM EST Temperature 36.7 C (98 F) 01/16/2025 9:55 AM EST Respiratory Rate 16 01/16/2025 9:55 AM EST Oxygen Saturation 97% 01/16/2025 9:55 AM EST Inhaled Oxygen Concentration - - Weight 78.9 kg (174 lb) 01/16/2025 9:55 AM EST Height 174 cm (5' 8.5 ) 01/16/2025 9:55 AM EST Body Mass Index 26.07 01/16/2025 9:55 AM EST documented in this encounter Functional Status * BP Answer Date of Assessment Author 124/81 01/16/2025 9:55 AM Raquel Mata CMA * Temp Answer Date of Assessment Author 98 01/16/2025 9:55 AM Raquel Mata CMA * Pulse Answer Date of Assessment Author 81 01/16/2025 9:55 AM Raquel Mata CMA * Resp Answer Date of Assessment Author 16 01/16/2025 9:55 AM Raquel Mata CMA * SpO2 Answer Date of Assessment Author 97 01/16/2025 9:55 AM Raquel Mata CMA * Height Answer Date of Assessment Author 68.5 01/16/2025 9:55 AM Raquel Mata CMA * Weight Answer Date of Assessment Author 2784 01/16/2025 9:55 AM Raquel Mata CMA * Tidal Volume Answer Date of Assessment Author 390 01/16/2025 9:55 AM Raquel Mata CMA * Shock Index Answer Date of Assessment Author 0.65 01/16/2025 9:55 AM Raquel Mata CMA * BMI (Calculated) Answer Date of Assessment Author 26.1 01/16/2025 9:55 AM Raquel Mata, AERONAUTICAL DESIGN ENGINEER * Over the past 2 weeks, how often have you been bothered by any of the following problems? Question Answer Date of Assessment Author Little interest or pleasure in doing things Not at all 01/16/2025 10:23 AM Kevin Mcdaniels APRN Feeling down, depressed, or hopeless Not at all 01/16/2025 10:23 AM Kayden Mcdaniels APRN Patient Health Questionnaire-2 Score 0 01/16/2025 10:23 AM Kathleen Mcdaniels ra, APRN * Restart Vitals Timer Answer Date of Assessment Author Yes 01/16/2025 9:55 AM Raquel Mata CMA * BP Answer Date of Assessment Author 124/81 01/16/2025 9:55 AM Raquel Mata CMA * Pulse Answer Date of Assessment Author 81 01/16/2025 9:55 AM Raquel Mata AERONAUTICAL DESIGN ENGINEER * Resp Answer Date of Assessment Author 16 01/16/2025 9:55 AM Raquel Mata AERONAUTICAL DESIGN ENGINEER * SpO2 Answer Date of Assessment Author 97 01/16/2025 9:55 AM Raquel Mata CMA * BMI (Calculated) Answer Date of Assessment Author 26.1 01/16/2025 9:55 AM Raquel Mata, AERONAUTICAL DESIGN ENGINEER * Over the past 2 weeks, how often have you been bothered by any of the following problems? Question Answer Date of Assessment Author Little interest or pleasure in doing things Not at all 01/16/2025 10:23 AM Kevin Mcdaniels APRN Feeling down, depressed, or hopeless Not at all 01/16/2025 10:23 AM Kayden Mcdaniels APRN Patient Health Questionnaire-2 Score 0 01/16/2025 10:23 AM Kathleen Mcdaniels ra, APRN documented as of this encounter Mental Status * BP Answer Entry Date Author 124/81 01/16/2025 9:55 AM Raquel Mata CMA * Temp Answer Entry Date Author 98 01/16/2025 9:55 AM Raquel Mata CMA * Pulse Answer Entry Date Author 81 01/16/2025 9:55 AM Raquel Mata, ANASTASIYA * Resp Answer Entry Date Author 16 01/16/2025 9:55 AM Raquel Mata, ANASTASIYA * SpO2 Answer Entry Date Author 97 01/16/2025 9:55 AM Raquel Mata, AERONAUTICAL DESIGN ENGINEER * Height Answer Entry Date Author 68.5 01/16/2025 9:55 AM Raquel Mata, AERONAUTICAL DESIGN ENGINEER * Weight Answer Entry Date Author 2784 01/16/2025 9:55 AM Raquel Mata, AERONAUTICAL DESIGN ENGINEER * Tidal Volume Answer Entry Date Author 390 01/16/2025 9:55 AM Raquel Mata, AERONAUTICAL DESIGN ENGINEER * Shock Index Answer Entry Date Author 0.65 01/16/2025 9:55 AM Raquel Mata, AERONAUTICAL DESIGN ENGINEER * BMI (Calculated) Answer Entry Date Author 26.1 01/16/2025 9:55 AM Raquel Mata, ANASTASIYA * Over the past 2 weeks, how often have you been bothered by any of the following problems? Question Answer Entry Date Author Little interest or pleasure in doing things Not at all 01/16/2025 10:23 AM Kevin Mcdaniels APRN Feeling down, depressed, or hopeless Not at all 01/16/2025 10:23 AM Kayden Mcdaniels APRN Patient Health Questionnaire-2 Score 0 01/16/2025 10:23 AM Kathleen Mcdaniels ra, APRN documented in this encounter Progress Notes * Kayden Chan APRN - 01/16/2025 10:00 AM EST [facility] [address] [place] [address] Patient: Marci Salamanca Date of : 1965 Appointment date: 01/16/25 Chief Complaint Chief Complaint Patient presents with Establish Care Former Dr. Cote patient. Establish care with [facility] HPI: Marci Salamanca is a 59 y.o. female who is here for her Annual Wellness physical exam. Consulting with Dr. Swenson for hormones and thyroid. Has a follow up in February to discuss labs and next steps. PMH includes: Hypothyroidism - currently taking synthroid, doing well on this. Labs recently placed by Dr. Swenson. Does not know if this is due to hashimotos - states this is being worked up my Messi, DO. HRT - partial hysterectomy, follows with OBGYN for well-woman exams. Doing well with hormones sincestart, these have taken away some of her hot flashes and brain fog. Still has been struggling with staying asleep at night - often times she is waking up due to feeling hot, also endorses daytime fatigue that comes with her frequent nighttime wake ups. Anxiety/depression - diagnosed in 2003 where she began zoloft. This started with severe anxiety that started having depressive symptoms. She stopped taking zoloft in 2014 due to feeling like it was no longer working - was started on trintellix, insurance stopped coverage of this medication - due tothis she was started on effexor a few years ago. Denies side effects from medication, feels as if her anxiety and depression are well managed. Hyperlipidemia - taking red yeast rice at home, this was suggested by Dr. Cote. Does not have any side effects from medication. Vit D Def - was started on K2+ D3, doing well on medication, previous DXA scan 1 year ago with no osteopenia/porosis noted on exam. Diet: Balanced diet, states currently doing a low starch diet with . 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 She stopped smoking when she was with her daughter. Alcohol use: (2) Monthly or less - rarely Recreational drug use: no Last mammogram: 2023 - states this was normal, has one scheduled. Does self breast exam?: yes - no concerns Family hx of breast ca?: yes - mom, maternal aunt, grandmother (maternal & paternal) DEXA scan?: yes - Jan 2024 Colon cancer screening (>age 45 or high risk)?: Had one at 55 - follows with colorectal Family hx of colon ca?: no Last pap/result: 01/2024, normal She is sexually active. Concern for STI?: no Menstruation: partial hysterectomy Contraception: none Dental care?: Yes - biannually Immunization History: Immunization History Administered Date(s) Administered Covid-19 Vaccine MRNA (PF) 18yr+ (Moderna)(PAQ011) 03/10/2020, 04/10/2020, 01/08/2021 INFLUENZA (FLULAVAL, FLUARIX)_0.5mL QIV_IM (06mo+)([id number]) 12/04/2024 Pneumococcal Conjugate Vaccine (20-Valent) IM 03/13/2024 Immunizations due today?: no Lipid screen: Lab Results Component Value Date CHOL 251 (H) 07/24/2024 Lab Results Component Value Date HDL 73 07/24/2024 Lab Results Component Value Date LDLCALC 162 (H) 07/24/2024 Lab Results Component Value Date TRIG 95 07/24/2024 Depression Assessment and Plan Depression Screen: (PHQ9 > 10 likely major depression; 5-9 = mild depression, 10-14 = moderate depression, 15-19 = moderately severe depression, > 20 = severe depression) PHQ2 = Patient Health Questionnaire-2 Score: 0 PHQ9 = Provider interpretation: Negative. no treatment needed based on clinical judgement Care Team: Patient Care Team: Kayden Chan APRN as PCP - General (Family Medicine) ROS: Review of Systems Constitutional: Negative for activity change, appetite change, fatigue, fever and unexpected weightchange. Eyes: Negative for photophobia and visual disturbance. Respiratory: Negative for cough, shortness of breath and wheezing. Cardiovascular: Negative for chest pain, palpitations and leg swelling. Gastrointestinal: Negative for constipation, diarrhea, nausea and vomiting. Musculoskeletal: Positive for arthralgias. Neurological: Negative for headaches. Psychiatric/Behavioral: Positive for sleep disturbance. All other systems reviewed and are negative. Chronic Problem List: Patient Active Problem List Diagnosis Date Noted Anxiety 01/16/2025 Former cigarette smoker 01/16/2025 Hypokalemia 07/16/2024 Fibromyalgia 03/17/2004 Past Medical/Surgical History: Past Medical History: Diagnosis Date Arthritis . Degenerative arthritis of left knee 06/12/2023 Depression 1.1.04 Fibromyalgia 1..1999 Past Surgical History: Procedure Laterality Date BREAST SURGERY 2004 Benign SECTION 1998 HYSTERECTOMY 2015 JOINT REPLACEMENT 08.24.2023 TUBAL LIGATION 1998 Family History: Family History Problem Relation Name Age of Onset Breast cancer Mother Soraya Rodriguez Hearing loss Mother Soraya Rodriguez Vision loss Mother Soraya Rodriguez Hyperlipidemia Father Fredrick Rodriguez Breast cancer Maternal Grandmother Fidelina Hernandez Breast cancer Paternal Grandmother Narciso Rodriguez Social History: Social History Tobacco Use Smoking status: Former Current packs/day: 0.00 Average packs/day: 2.0 packs/day for 15.0 years (30.0 ttl pk-yrs) Types: Cigarettes Start date: 03/06/1980 Quit date: 1995 Years since quittin.8 Smokeless tobacco: Never Substance Use Topics Alcohol use: Not Currently Drug use: Never Objective: BP 124/81 Pulse 81 Temp 98 ??F (36.7 ??C) Resp 16 Ht 1.74 m (5' 8.5 ) Wt 78.9 kg (174 lb) SpO2 97% BMI 26.07 kg/m?? PE: Physical Exam Vitals and nursing note reviewed. Constitutional: General: She is not in acute distress. Appearance: Normal appearance. She is not ill-appearing or diaphoretic. HENT: Right Ear: Tympanic membrane, ear canal and external ear normal. Left Ear: Tympanic membrane, ear canal and external ear normal. Nose: No congestion or rhinorrhea. Mouth/Throat: Mouth: Mucous membranes are moist. Pharynx: Oropharynx is clear. No oropharyngeal exudate. Eyes: General: Right eye: No discharge. Left eye: No discharge. Extraocular Movements: Extraocular movements intact. Conjunctiva/sclera: Conjunctivae normal. Pupils: Pupils are equal, round, and reactive to light. Funduscopic exam: Right eye: No hemorrhage. Red reflex present. Left eye: No hemorrhage. Red reflex present. Neck: Thyroid: No thyroid mass, thyromegaly or thyroid tenderness. Cardiovascular: Rate and Rhythm: Normal rate and regular rhythm. Pulses: Normal pulses. Heart sounds: Normal heart sounds. No murmur heard. No friction rub. No gallop. Pulmonary: Effort: Pulmonary effort is normal. No respiratory distress. Breath sounds: Normal breath sounds. No stridor. No wheezing, rhonchi or rales. Chest: Chest wall: No tenderness. Abdominal: General: Abdomen is flat. There is no distension. Palpations: Abdomen is soft. There is no mass. Tenderness: There is no abdominal tenderness. There is no guarding or rebound. Hernia: No hernia is present. Musculoskeletal: General: Normal range of motion. Cervical back: Normal range of motion and neck supple. No tenderness. Right lower leg: No edema. Left lower leg: No edema. Lymphadenopathy: Cervical: No cervical adenopathy. Skin: General: Skin is warm and dry. Coloration: Skin is not jaundiced or pale. Findings: No bruising or erythema. Neurological: General: No focal deficit present. Mental Status: She is alert and oriented to person, place, and time. Cranial Nerves: No cranial nerve deficit. Sensory: No sensory deficit. Motor: No weakness. Coordination: Coordination normal. Gait: Gait normal. Deep Tendon Reflexes: Reflexes normal. Psychiatric: Mood and Affect: Mood normal. Behavior: Behavior normal. Assessment/Plan: ICD-10-CM ICD-9-CM 1. Annual physical exam Z00.00 V70.0 Hemoglobin A1c Comprehensive metabolic panel CBC with platelet count + automated diff Vitamin D, 25-Hydroxy Vitamin B12 Discussed PMH. Reviewed screenings; mammogram has been scheduled and has a follow up with OBGYN. Vaccinations up to date; receives these at local pharmacy. Preventative maintenance discussed. 2. Special screening for cancer of the respiratory organs Z12.[address] LUNG SCREENING INITIAL 3. Former cigarette smoker Z87.[address] LUNG SCREENING INITIAL 4. Vitamin D deficiency E55.9 268.9 Vitamin D, 25-Hydroxy Update labs due to supplementation use 5. Hypothyroidism E03.9 244.9 levothyroxine (SYNTHROID) 50 MCG tablet Continue following with Dr. Swenson, will take over care as appropriate once indicated by DO Messi. 6. Post menopausal syndrome N95.1 627.9 progesterone (PROMETRIUM) 200 MG capsule Continue following with Dr. Swenson for HRT, will take over care as appropriate once indicated by DO Messi. 7. Anxiety with depression F41.8 300.4 venlafaxine XR (EFFEXOR-XR) 75 MG 24 hr capsule Stable. Will refill at this time. Encourage outdoor time as weather permits, increase exercise - both cardiovascular and weight lifting - to 4x/week. Decrease processed sugars and foods in diet. Practice mindfulness and self-care. 8. Mixed hyperlipidemia E78.[address] Swenson, continue using red yeast rice - prefer Vidhya brand. Increase [place] 3 in diet, and can continue supplementation. Cardiovascular exercise as well as HRT will help with lowering cholesterol as well. No problem-specific Assessment & Plan notes found for this encounter. Orders Placed This Encounter Procedures CT LUNG SCREENING INITIAL Return in about 4 months (around 05/16/2025). 5-10 Year Screening Plan Health Maintenance Topic Date Due Colorectal Cancer Screening Never done HIV Screening Never done Hepatitis C Screening Never done Pap Smear Never done Breast Cancer Screening Never done Shingles Vaccine (Zoster) (2 of 2) 06/22/2018 Respiratory Syncytial Virus (RSV) Adult or (1 - Risk 60-74 years 1- dose series) Never done DTAP/TDAP/TD VACCINES (3 - Td or Tdap) 09/17/2024 COVID-19 VACCINE (4 - 2024- season) 2024 Depression Screening (12+) 08/18/2025 Tobacco Cessation Counseling and Screening (12+) 01/16/2026 Lipid Panel 07/25/2027 Pneumococcal 50+ years Completed Influenza Vaccine Completed Lung Cancer Screening Marci Salamanca is a 59 y.o. female who meets the criteria for lung cancer screening (more than 30 year pack history and is a current smoker or has quit less than 15 years ago and is between the ages of55 and 77). She has not had a chest CT scan within the last 12 months. She has been advised of the potential risks and benefits of CT lung cancer screening. She was informed of the importance of adherence to annual screening, impact of co-morbidities and has indicated the ability/willingness to undergo diagnosis and treatment. She was informed of the importance of smoking cessation and/or maintaining smoking abstinence, including the offer of Medicare-covered tobacco cessation counseling services, if applicable. Electronically signed by: Kayden Chan APRN 01/16/2025 10:13 AM R PASTRY documented in this encounter Miscellaneous Notes * Addendum Note - Kayden Chan APRN - 01/16/2025 10:00 AM ESTAddended by: KAYDEN CHAN on: 01/16/2025 03:38 PM Modules accepted: Orders R PASTRY documented in this encounter Plan of Treatment Upcoming Encounters Date Type Department Care Team (Late st Contact Info) Description 05/12/2025 10:00 AM EDT Office Visit [facility] [address] [place] [address] Kayden Chan APRN [address] [place] [address] Scheduled Orders Name Type Priority Associated Diagnoses Orde r Schedule CT LUNG SCREENING INITIAL Imaging Routine Special screening for cancer of the respiratory organs Former cigarette smoker Expected: 01/16/2025, Expires: 02/15/2026 CT CHEST WITHOUT IV CONTRAST Imaging Routine Former cigarette smoker Expected: 01/16/2025, Expires: 02/15/2026 documented as of this encounter Procedures Procedure Name Priority Date/Time Associated Diagnosis Comments VITAMIN D, 25-HYDROXY Routine 01/16/2025 10:40 AM EST Annual physical exam Vitamin D deficiency CBC W/PLT COUNT & AUTO DIFFERENTIAL Routine 01/16/2025 10:40 AM EST Annual physical exam HEMOGLOBIN A1C Routine 01/16/2025 10:40 AM EST Annual physical exam VITAMIN B12 Routine 01/16/2025 10:40 AM EST Annual physical exam COMPREHENSIVE METABOLIC PANEL Routine 01/16/2025 10:40 AM EST Annual physical exam documented in this encounter Results * Vitamin B12 (01/16/2025 10:40 AM EST) Vitamin B12 930 232 - 1,245 pg/mL [facility] Blood 01/16/2025 10:4 0 AM EST 01/16/2025 Narrative [facility] - 01/17/2025 7:07 AM EST Performed at: - [facility] [id number] [employer]pet Tile Layer: Donald Ayers PhD, Phone: [phone] Kayden Chan APRN LAB BLOOD ORDERABLES Jane l Result Performing Organization Address [facility]/ZIP Co de Phone Number [facility] * Vitamin D, 25-Hydroxy (01/16/2025 10:40 AM EST) Pathologist [facility] Vitamin D, 25-Hydroxy 56.8 30.0 - 100.0 ng/mL [facility] Comment: Vitamin D deficiency has been defined by the [place] of Medicine and an Endocrine Society practice guideline as a level of serum 25-OH vitamin D less than 20 ng/mL (1,2). The Endocrine Society went on to further define vitamin D insufficiency as a level between 21 and 29 ng/mL (2). 1. IOM ([place] of Medicine). 2010. Dietary reference intakes for calcium and D. [place]: The National Academies Press. 2. Corrina MF, Cedrick MONTERO, Rochelle MCKOY, et al. Evaluation, treatment, and prevention of vitamin D deficiency: an Endocrine Society clinical practice guideline. JCEM. 2010; 96(7):1911-30. Blood 01/16/2025 10:4 0 AM EST 01/16/2025 Narrative [facility] - 01/17/2025 7:07 AM EST Performed at: - [facility] [id number] [employer] Layer: Donald Ayers PhD, Phone: [phone] Kayden Chan APRN LAB BLOOD ORDERABLES Jane l Result Performing Organization Address City/[facility]/ZIP Co de Phone Number [facility] * CBC with platelet count + automated diff (01/16/2025 10:40 AM EST) Pathologist [facility] WBC 6.8 3.4 - 10.8 x10E3/uL [facility] RBC 4.44 3.77 - 5.28 x10E6/uL [facility] Hemoglobin 14.0 11.1 - 15.9 g/dL [facility] Hematocrit 41.8 34.0 - 46.6 % [facility] MCV 94 79 - 97 fL [facility] MCH 31.5 26.6 - 33.0 pg [facility] MCHC 33.5 31.5 - 35.7 g/dL [facility] RDW 12.9 11.7 - 15.4 % [facility] Platelets 198 150 - 450 x10E3/uL [facility] % Neutros 62 Not Estab. % [facility] % Lymphs 28 Not Estab. % [facility] % Monos 6 Not Estab. % [facility] % Eos 3 Not Estab. % [facility] % Baso 1 Not Estab. % [facility] # Neutros 4.3 1.4 - 7.0 x10E3/uL [facility] # Lymphs 1.9 0.7 - 3.1 x10E3/uL [facility] # Monos 0.4 0.1 - 0.9 x10E3/uL [facility] # Eos 0.2 0.0 - 0.4 x10E3/uL [facility] Baso (Absolute) 0.0 0.0 - 0.2 x10E3/uL [facility] % Immature Grans 0 Not Estab. % [facility] # Immature Grans 0.0 0.0 - 0.1 x10E3/uL [facility] Blood 01/16/2025 10:4 0 AM EST 01/16/2025 Narrative [facility] - 01/17/2025 7:07 AM EST Performed at: 01 - [facility] [id number] [employer] Layer: Donald Ayers PhD, Phone: [phone] us Kayden Chan APRN LAB BLOOD ORDERABLES Jane hoskins Result [facility] * Comprehensive metabolic panel (01/16/2025 10:40 AM EST) Pathologist [facility] Glucose, Serum 83 70 - 99 mg/dL [facility] BUN 16 8 - 27 mg/dL [facility] Creatinine, Serum 0.77 0.57 - 1.00 mg/dL [facility] EGFR 88 >59 mL/min/1.73 [facility] BUN/Creatinine Ratio 21 12 - 28 [facility] Sodium, Serum 141 134 - 144 mmol/L [facility] Potassium, Serum 4.4 3.5 - 5.2 mmol/L [facility] Chloride, Serum 104 96 - 106 mmol/L [facility] Carbon Dioxide, Total 22 20 - 29 mmol/L [facility] Calcium, Serum 9.3 8.7 - 10.3 mg/dL [facility] Protein, Total, Serum 6.6 6.0 - 8.5 g/dL [facility] Albumin, Serum 4.4 3.9 - 4.9 g/dL [facility] Globulin, Total 2.2 1.5 - 4.5 g/dL [facility] Bilirubin, Total 0.5 0.0 - 1.2 mg/dL [facility] Alkaline Phosphatase, S 75 49 - 135 IU/L [facility] AST (SGOT) 19 0 - 40 IU/L [facility] ALT (SGPT) 17 0 - 32 IU/L [facility] Blood 01/16/2025 10:4 0 AM EST 01/16/2025 Narrative [facility] - 01/17/2025 7:07 AM EST Performed at: 01 - [facility] [id number] [employer] Layer: Donald Ayers PhD, Phone: [phone] Kayden Chan APRN LAB BLOOD ORDERABLES Jane l Result [facility] * Hemoglobin A1c (01/16/2025 10:40 AM EST) [facility] Hemoglobin A1c 5.1 4.8 - 5.6 % [facility] Comment: Prediabetes: 5.7 - 6.4 Diabetes: >6.4 Glycemic control for adults with diabetes: <7.0 Blood 01/16/2025 10:4 0 AM EST 01/16/2025 Narrative [facility] - 01/17/2025 7:07 AM EST Performed at: 01 - [facility] [address] [id number] [employer] Layer: Donald Ayers PhD, Phone: [phone] us Kayden Chan APRN LAB BLOOD ORDERABLES Jane l Result [facility] documented in this encounter Visit Diagnoses Diagnosis Annual physical exam- Primary Routine general medical examination at a health care facility Special screening for cancer of the respiratory organs Special screening for malignant neoplasm of the respiratory organs Former cigarette smoker Personal history of tobacco use, presenting hazards to health Vitamin D deficiency Unspecified vitamin D deficiency Hypothyroidism Unspecified hypothyroidism Post menopausal syndrome Asymptomatic postmenopausal status (age-related) (natural) Anxiety with depression Mixed hyperlipidemia documented in this encounter Care Teams Splunk Dashboard Developer Relationship Specialty Start Date End Date Kayden Chan, [employer] P[employer] [address] [place] [address] PCP - General Family Medicine 01/16/25 documented as of this encounter
--- OUTSIDE RECORDS SUMMARY | 2025-02-06 10:15 | XMS_ITS | Encounter Summary ---
Author Organization [facility] ([place], [place], [place], [place], [place]) Address [address] [place] [address] Care Team Providers Care Clinical Documentation Manager Name Role Phone Ashleigh Ortiz APRN Primary Care Provider [phone] Reason for Visit * Reason Comments Follow-up Results Encounter Details Date Type Department Care Team (Latest Contact Info) Description 02/06/2025 10:15 AM EST Video - Telemedicine [facility] [address] [place] [address] Tamara Swenson DO [address] [place] [address] Colon cancer screening (Primary Dx); Low testosterone level in female; Post menopausal syndrome; Other specified hypothyroidism; Mixed hyperlipidemia; Vitamin D deficiency; Menopause; Hormone replacement therapy Social History Tobacco Use Types Packs/Day Years [...] on file 03/15 Educational Attainment Answer Date Bentio rded Speak language other than Estonian at home Not on file 03/15/2023 Want [...] Reading Time Taken Comments Blood Pressure 124/81 02/06/2025 10:06 AM EST Pulse - - Temperature - - Respiratory Rate - - Oxygen Saturation - - Inhaled Oxygen Concentration - - Weight 78.9 kg (174 lb) 02/06/2025 10:06 AM EST Height 174 cm (5' 8.5 ) 02/06/2025 10:06 AM EST Body Mass Index 26.07 02/06/2025 10:06 AM EST documented in this encounter Functional Status * BP Answer Date of Assessment Author 124/81 02/06/2025 10:06 AM Kelsi Lima CMA * Height Answer Date of Assessment Author 68.5 02/06/2025 10:06 AM Kelsi Lima CMA * Weight Answer Date of Assessment Author 2784 02/06/2025 10:06 AM Kelsi Lima CMA * Tidal Volume Answer Date of Assessment Author 390 02/06/2025 10:06 AM Kelsi Lima CMA * BMI (Calculated) Answer Date of Assessment Author 26.1 02/06/2025 10:06 AM Kelsi Lima CMA * BP Answer Date of Assessment Author 124/81 02/06/2025 10:06 AM Kelsi Lima CMA * BMI (Calculated) Answer Date of Assessment Author 26.1 02/06/2025 10:06 AM Kelsi Lima CMA documented as of this encounter Mental Status * BP Answer Entry Date Author 124/81 02/06/2025 10:06 AM Kelsi Lima CMA * Height Answer Entry Date Author 68.5 02/06/2025 10:06 AM Kelsi Lima CMA * Weight Answer Entry Date Author 2784 02/06/2025 10:06 AM Kelsi Lima CMA * Tidal Volume Answer Entry Date Author 390 02/06/2025 10:06 AM Kelsi Lima CMA * BMI (Calculated) Answer Entry Date Author 26.1 02/06/2025 10:06 AM Kelsi Lima CMA documented in this encounter Progress Notes * Tamara Swenson, DO - 02/06/2025 10:15 AM EST Subjective: Marci Salamanca is a [...] to proceed. Chief Complaint Patient presents with Follow-up Results I have reviewed and/or updated the following: History of Present Illness Marci Salamanca is a 59 year old female who presents for hormone level evaluation and management. She is undergoing evaluation and management of her hormone levels. Her DHEA level was previously 24and has increased to 30, but it should be around 200. She is unsure if she is currently taking DHEA, as she thought it was part of a regimen prescribed by another doctor. She is experiencing symptomsassociated with low testosterone, including low energy, and is interested in addressing these issues. Her estrogen level has increased from 3 to 30 over the past six months, but it should be between 50to 100. Progesterone has improved from 0.2 to 2.7, which is a positive change. She experiences symptoms such as vaginal dryness, trouble sleeping, mood changes, night sweats, and hot flashes. Her vitamin D level is currently 56, which is considered adequate. She had concerns about her vitamin D absorption, especially during the summer when she is frequently outdoors, but she has not started any supplementation. She also mentions a previous discussion with another doctor regarding the correlation between vitamin D and cholesterol or estrogen. Her cholesterol level has decreased from 251 to 216, which is an improvement. She is aware of the importance of dietary choices and is encouraged to consume 30 to 50 grams of fiber daily and avoid certain oils. She is planning to have a CT calcium score done on March 04 at a local hospital. Review of Systems All other systems reviewed and are negative. Objective: BP 124/81 Ht 1.74 m (5' 8.5 ) Wt 78.9 kg (174 lb) BMI 26.07 kg/m?? Current Outpatient Medications Medication Instructions cinnamon bark 500 mg capsule 1 cap(s) orally once daily cream base no.101, bulk, crea testosterone 0.5mg/0.5ml TD cream apply 0.5ml TD daily disp 15g estradioL (Vivelle-Dot) 0.075 mg/24 hr patch 1 patch, transdermal, Twice [...] Ashwaganda 1000mg [place] 500mg Vitamin e 670mg Polish Ginseng 100mg . venlafaxine XR (EFFEXOR-XR) 75 mg, oral, Daily Physical Exam Constitutional: Appearance: Normal appearance. HENT: Head: Normocephalic and atraumatic. Nose: Nose normal. Mouth/Throat: Mouth: Mucous membranes are moist. Pharynx: Oropharynx is clear. Eyes: Extraocular Movements: Extraocular movements intact. Conjunctiva/sclera: Conjunctivae normal. Pulmonary: Effort: Pulmonary effort is normal. Neurological: General: No focal deficit present. Mental Status: She is alert. Psychiatric: Mood and Affect: Mood normal. Behavior: Behavior normal. Thought Content: Thought content normal. Judgment: Judgment normal. Physical Exam Assessment & Plan: 1. Colon cancer screening 2. Low testosterone level in female 3. Post menopausal syndrome 4. Other specified hypothyroidism 5. Mixed hyperlipidemia 6. Vitamin D deficiency 7. Menopause 8. Hormone replacement therapy Office Visit on 01/16/2025 Component Date Value Hemoglobin A1c 01/16/2025 5.1 Glucose, Serum 01/16/2025 83 BUN 01/16/2025 16 Creatinine, Serum 01/16/2025 0.77 EGFR 01/16/2025 88 BUN/Creatinine Ratio 01/16/2025 21 Sodium, Serum 01/16/2025 141 Potassium, Serum 01/16/2025 4.4 Chloride, Serum 01/16/2025 104 Carbon Dioxide, Total 01/16/2025 22 Calcium, Serum 01/16/2025 9.3 Protein, Total, Serum 01/16/2025 6.6 Albumin, Serum 01/16/2025 4.4 Globulin, Total 01/16/2025 2.2 Bilirubin, Total 01/16/2025 0.5 Alkaline Phosphatase, S 01/16/2025 75 AST (SGOT) 01/16/2025 19 ALT (SGPT) 01/16/2025 17 WBC 01/16/2025 6.8 RBC 01/16/2025 4.44 Hemoglobin 01/16/2025 14.0 Hematocrit 01/16/2025 41.8 MCV 01/16/2025 94 MCH 01/16/2025 31.5 MCHC 01/16/2025 33.5 RDW 01/16/2025 12.9 Platelets 01/16/2025 198 % Neutros 01/16/2025 62 % Lymphs 01/16/2025 28 % Monos 01/16/2025 6 % Eos 01/16/2025 3 % Baso 01/16/2025 1 # Neutros 01/16/2025 4.3 # Lymphs 01/16/2025 1.9 # Monos 01/16/2025 0.4 # Eos 01/16/2025 0.2 Baso (Absolute) 01/16/2025 0.0 % Immature Grans 01/16/2025 0 # Immature Grans 01/16/2025 0.0 Vitamin D, 25-Hydroxy 01/16/2025 56.8 Vitamin B12 01/16/2025 930 Office Visit on 01/08/2025 Component Date Value LDL-P 01/08/2025 1,411 (H) LDL-C (NIH Calc) ([facility]* 01/08/2025 130 (H) HDL-C 01/08/2025 60 Triglycerides 01/08/2025 150 (H) Cholesterol, Total 01/08/2025 216 (H) HDL-P (Total) 01/08/2025 33.1 Small LDL-P 01/08/2025 482 LDL Size 01/08/2025 21.3 Large VLDL-P 01/08/2025 1.9 Small LDL-P 01/08/2025 482 Large HDL-P 01/08/2025 8.4 VLDL Size 01/08/2025 43.0 LDL Size 01/08/2025 21.3 HDL Size 01/08/2025 9.2 LP-IR Score 01/08/2025 30 Thyroid Peroxidase (TPO)* 01/08/2025 <9 Thyroglobulin Ab 01/08/2025 <1.0 Iodine, Serum or Plasma 01/08/2025 58.4 Reverse T3 01/08/2025 12.1 Testosterone, Total, LC/* 01/08/2025 18.6 Testosterone, Free 01/08/2025 0.31 % Free Testosterone 01/08/2025 1.67 Progesterone 01/08/2025 2.7 Estradiol, Sensitive 01/08/2025 30.5 DHEA-Sulfate 01/08/2025 30.6 Estrone Sulfate([facility]) 01/08/2025 116 Selenium, Serum/Plasma 01/08/2025 129 Plan: Diagnoses and all orders for this visit: Colon cancer screening Low testosterone level in female - cream base no.101, bulk, crea; testosterone 0.5mg/0.5ml TD cream apply 0.5ml TD daily disp 15g. Post menopausal syndrome - Estrone Sulfate; Future - Testosterone, F Eqlib+T LC/MS; Future - Progesterone; Future - ESTRADIOL, SENSITIVE; Future - DHEA Sulfate; Future Other specified hypothyroidism - T3, free; Future - T4, free; Future - TSH; Future Mixed hyperlipidemia - NMR LipoProf wSubCls+Graph; Future Vitamin D deficiency Menopause - cream base no.101, bulk, crea; testosterone 0.5mg/0.5ml TD cream apply 0.5ml TD daily disp 15g. - estradioL (Vivelle-Dot) 0.075 mg/24 hr patch; Place 1 patch on the skin twice a week. Hormone replacement therapy - estradioL (Vivelle-Dot) 0.075 mg/24 hr patch; Place 1 patch on the skin twice a week. Return in about 3 months (around 05/07/2025) for Next Scheduled Follow Up. Assessment & Plan Menopausal syndrome with hormone replacement therapy Menopausal symptoms include vaginal dryness, mood changes, night sweats, and hot flashes. Current estradiol patch is 0.05 mg/24 hr, with room for increase. Progesterone level is 2.7, up from 0.2, indicating improvement. Estrone level is low. - Increased estradiol patch to 0.075 mg/24 hr. - Ordered Indoplex from [facility] [address] for estrone management. - Will recheck hormone levels in three months. 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 DHEA level is low at 30, with a target of 200. Discussed potential side effects of DHEA, including acne due to conversion to dihydrotestosterone. Testosterone therapy is recommended for immediate relief and benefits. - Started DHEA 10 mg daily. - Prescribed compounded testosterone gel, 2 clicks in the morning, applied under the arm or betweenthighs. - Will recheck hormone levels in three months. Mixed hyperlipidemia Small LDL particles at 482, with total cholesterol decreasing from 251 to 216. Estrogen therapy is expected to further improve cholesterol levels. Current management focuses on optimizing hormone levels before considering additional cholesterol-lowering interventions. - Continue current diet and exercise regimen. - Encouraged intake of 30-50 grams of fiber daily. - Advised cooking with grass-fed Kerrygold butter and coconut oil, avoiding liquid seed oils. - Will recheck cholesterol levels in three months. Hypothyroidism Iodine levels are good, likely due to multivitamin intake. Current management with levothyroxine isongoing. - Continue current levothyroxine regimen. Virtual Video Informed Consent: The risks, benefits, and alternatives to the virtual visit were explained to the patient and the patient verbally consented to this modality of care. The visit was carried out using secure real-time audio-visual technology and all parties in the room were identified and approved by the patient prior to the consult. Unless noted otherwise, the provider was located at their usual clinic location, and the patient was at their place of residence. Any physical exam was assisted by the patient and/ora caregiver. PATIENT LOCATION: home PROVIDER LOCATION: office PATIENT INFORMED OF TREATING MEDICAL GROUP: YES DATE OF SERVICE: 02/06/2025 START TIME: 10:15 STOP TIME: 10:28 This note was partially generated using [employer] Dictation System, and there may be some [...] and the clinical opinion of the physician. 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 INSPECTOR documented in this encounter Plan of Treatment Upcoming Encounters Date Type Department Care Team (Late st Contact Info) Description 05/12/2025 10:00 AM EDT Office Visit [facility] [address] [place] [address] Ashleigh Ortiz APRN [address] [place] [address] Scheduled Orders Name Type Priority Associated Diagnoses Orde r Schedule NMR LipoProf wSubCls+Graph Lab Routine Mixed hyperlipidemia Expected: 02/06/2025, Expires: 02/06/2026 Estrone Sulfate Lab Routine Post menopausal syndrome Expected: 02/06/2025, Expires: 02/06/2026 Testosterone, F Eqlib+T LC/MS Lab Routine Post menopausal syndrome Expected: 02/06/2025, Expires: 02/06/2026 Progesterone Lab Routine Post menopausal syndrome Expected: 02/06/2025, Expires: 02/06/2026 ESTRADIOL, SENSITIVE Lab Routine Post menopausal syndrome Expected: 02/06/2025, Expires: 02/06/2026 DHEA Sulfate Lab Routine Post menopausal syndrome Expected: 02/06/2025, Expires: 02/06/2026 T3, free Lab Routine Other specified hypothyroidism Expected: 02/06/2025, Expires: 02/06/2026 T4, free Lab Routine Other specified hypothyroidism Expected: 02/06/2025, Expires: 02/06/2026 TSH Lab Routine Other specified hypothyroidism Expected: 02/06/2025, Expires: 02/06/2026 documented as of this encounter Visit Diagnoses Diagnosis Colon cancer screening- Primary Special screening for malignant neoplasms, colon Low testosterone level in female Post menopausal syndrome Asymptomatic postmenopausal status (age-related) (natural) Other specified hypothyroidism Mixed hyperlipidemia Vitamin D deficiency Unspecified vitamin D deficiency Menopause Symptomatic menopausal or female climacteric states Hormone replacement therapy documented in this encounter Care Teams Clinical Documentation Manager Relationship Specialty Start Date End Date Ashleigh Ortiz, IMPLEMENTATION COORDINATOR [address] [place] [address] PCP - General Family Medicine 01/16/25 documented as of this encounter
--- OUTSIDE RECORDS SUMMARY | 2025-03-04 12:46 | XMS_ITS | Patient Health Record ---
[facility] Address [address] [place] [id number] Care Team Providers Care Die Trouble Shooter Name Role Phone Lynda Garvey Primary Care Provider Nat Nuñez [phone] Allergies Allergen (clinical drug ingredient) Drug/Non Drug Allergy documented on EMR Reaction Allergy Type Onset Date Status azithromycin Zithromax Unknown Drug Allergy Acti ve Medications Medication SIG (Take, Route, Frequency, Duration) Notes Start Date End Date Status Slow Magnesium/Calcium 70-117 MG as directed Orally 2 capsules daily Activ e Turmeric Curcumin - as directed Orally 1,000 mg daily Active [place] 3-5-6-7-9 Fatty Acids - as directed Orally [...] 1 tab(s) orally once a day Active Venlafaxine HCl ER 75 MG TAKE 1 CAPSULE BY MOUTH ONCE DAILY; Duration: 90 Active Potassium Chloride ER 10 MEQ 1 cap(s) orally once a day; Duration: 14 days Active Cyclobenzaprine HCl 5 MG 1 tab(s) orally 3 times a day, prn Active Immunizations Vaccine Route Administration Date Status Comme nts xFluzone (6mos and older)-trivalent IM Intramuscular 12/29/2010 Administered xFlu shot-36 months and older IM Intramuscular 01/29/2005 Administered xFlu shot-36 months and older IM Intramuscular 01/07/2006 Administered xFlu shot-36 months and older IM Intramuscular 01/09/2007 Administered xFlu shot-36 months and older IM Intramuscular 12/31/2007 Administered xFlu shot-36 months and older IM Intramuscular 02/09/2009 Administered xFlu shot-36 months and older IM Intramuscular 12/31/2009 Administered tuberculin (ppd) ID Intradermal 09/25/2007 Administered Tetanus Tdap-Adacel (over 7yrs) IM Intramuscular 09/17/2014 Administered Shingrix IM Intramuscular 04/27/2018 Administered ppd ID Intradermal 01/03/2011 Administered Hepatitis A (adult) IM Intramuscular 04/27/2018 Administer ed Fluzone Quad (6months&older) Unknown 12/25/2014 Administered DT, 7 YEARS OR OLDER IM Intramuscular 05/11/2006 Administe red COVID 19 Moderna Unknown 04/10/2020 Administered COVID 19 Moderna Unknown 01/08/2021 Administered Problems Problem Type SNOMED Code ICD Code Onset Dates Problem Status W/U Status Risk Notes Problem Migraine (22747402) Migraine, unspecified, without mention of intractable migraine (346.90) Active confirmed Problem Menopause (918609595) Menopause, menopausal (627.2) Active confirmed Problem Hypothyroidism (46131870) Hypothyroidism (acquired) (E03.9) Active confirmed Problem Seasonal allergy (288114128) Seasonal allergies (J30.2) Active confirmed Problem Arthritis (3171467) Arthritis (M19.90) Active c onfirmed Problem Sciatic nerve lesion (067894537) Piriformis syndrome of left side (G57.02) Active confirmed Problem Primary generalised osteoarthritis (437090008) Primary generalized (osteo)arthritis (M15.0) Active confirmed Problem Headache disorder (963606812) Other headache syndrome (G44.89) Active confirmed Problem Chronic pain (63771623) Other chronic pain (G89.29) Active confirmed Problem Depressive disorder (33798334) Depressive disorder (F32.9) Active confirmed Problem Migraine without aura, not refractory (037394961) Migraine without aura and without status migrainosus, not intractable (G43.009) Active confirmed Problem Sacroiliitis (95879481) Sacroiliitis (M46.1) Active confirmed Problem Human immunodeficiency virus screening (483606465) Screening for HIV (human immunodeficiency virus) (Z11.4) Active confirmed Problem Viral screening (842935315) Need for hepatitis B screening test (Z11.59) Active confirmed Problem Sciatica (72164408) Acute left-s ided low back pain with left-sided sciatica (M54.42) Active confirmed Problem Immunology screening test (850070721) Immunity status testing (Z01.84) Active confirmed Problem Viral screening (872079994) Encounter for HCV screening test for low risk patient (Z11.59) Active confirmed Plan Of Treatment No Information Insurance Providers Payer Name Payer Address Payer Phone Subscriber Number Group Number Insured Name Patient Relationship to Insured Coverage Start Date Coverage End Date NATALYA VERDUGO [address] [place], [place] [id number] SANTOS FRANCIS Self - patient is [...] Surgery Date(Month/Year) C Section Breast Biopsy- Benign 2005 Hysterectomy, Abdominal 2011 LT Knee Replacement 2023 Hospitalization History Reason Date(Month/Year)
--- OUTSIDE RECORDS SUMMARY | 2025-03-04 12:46 | XMS_ITS | Clinical Summary ---
Author Organization [employer] ([place], [place], [place], [place], [place]) Address [address] [place] [address] Care Team Providers Care Central Office Repairer Supervisor Name Role Phone Ashleigh Ortiz APRN Primary Care Provider [phone] Allergies Active Allergy Reactions Criticality Noted Date Comments Penicillins Hives High 10/02/2024 Patient states that she has had PCN with no reaction as adult Medications meloxicam (MOBIC) 15 MG tablet 08/05/19 23 Active potassium chloride (MICRO-K) 10 mEq CR capsule Take 1 capsule (10 mEq total) by mouth daily. Active magnesium 200 mg tab Take by mouth. Activ e turmeric, bulk, 95 % powd Take by mouth. Activ e omega-3/dha/epa/ dpa/fish oil (OMEGA-3 2100 ORAL) Take by mouth. Activ e cinnamon bark 500 mg capsule 1 cap(s) orally once daily Active UNKNOWN Ashwaganda 1000mg Boswellia 500mg Vitamin e 670mg Italian Ginseng 100mg . Active levothyroxine (SYNTHROID) 50 MCG tabletIndication s:Hypothyroidism Take 1 tablet (50 mcg total) by mouth daily for 90 days. 90 tablet 3 01/17/20 25 026 Active progesterone (PROMETRIUM) 200 MG capsuleIndicatio ns:Post menopausal syndrome Take 1 capsule (200 mg total) by mouth nightly. 90 capsule 3 01/17/20 25 Active venlafaxine XR (EFFEXOR-XR) 75 MG 24 hr capsuleIndicatio ns:Anxiety with depression Take 1 capsule (75 mg total) by mouth daily for 90 days. 90 capsule 3 01/17/20 25 026 Active cream base no.101, bulk, creaIndications: Low testosterone level in female,Menopause testosterone 0.5mg/0.5ml TD cream apply 0.5ml TD daily disp 15g. 15 g 2 02/07/20 25 Active estradioL (Vivelle-Dot) 0.075 mg/24 hr patchIndications :Menopause,Hormo ne replacement therapy Place 1 patch on the skin twice a week. 8 patch 11 02/07/20 25 Active estradioL (VIVELLE-DOT) 0.05 mg/24 hr patchIndications :Post menopausal syndrome Place 1 patch on the skin twice a week. 8 patch 11 10/11/19 25 025 Discontin ued(Dose adjustmen t) Active Problems Problem Noted Date Diagnosed Date Former cigarette smoker 01/16/2025 Anxiety with depression 01/16/2025 Post menopausal syndrome 01/16/2025 Hypothyroidism 01/16/2025 Mixed hyperlipidemia 01/16/2025 Hypokalemia 07/16/2024 Fibromyalgia 03/17/2004 Resolved Problems Problem Noted Date Diagnosed Date Resolved Date Anxiety 01/16/2025 01/16/2025 Migraines 07/16/2024 08/19/2024 Degenerative arthritis of left knee 06/12/2023 07/16/2024 Encounters Date Type Department Care Team Description 02/06/2025 10:15 AM EST Video - Telemedicine [facility] [address] [place] [address] Tamara Swenson DO Colon cancer screening (Primary Dx); Low testosterone level in female; Post menopausal syndrome; Other specified hypothyroidism; Mixed hyperlipidemia; Vitamin D deficiency; Menopause; Hormone replacement therapy 01/22/2025 Telephone [facility] [address] [place] [address] Ashleigh Ortiz APRN REQUEST NEW REFERRAL 01/16/2025 10:00 AM EST Office Visit [facility] [address] [place] [address] [address] Ashleigh Ortiz APRN Annual physical exam (Primary Dx); Special screening for cancer of the respiratory organs; Former cigarette smoker; Vitamin D deficiency; Hypothyroidism; Post menopausal syndrome; Anxiety with depression; Mixed hyperlipidemia 01/08/2025 10:00 AM EST Office Visit [facility] [address] [place] [address] Tamara Swenson DO Colon cancer screening (Primary Dx); Atherosclerosis of north fork coronary artery of north fork heart without angina pectoris; Moderate mixed hyperlipidemia not requiring statin therapy; Hypothyroidism, unspecified type; Menopause; Hormone replacement therapy; Chronic pain syndrome 01/08/2025 Travel from Last 3 Months Immunizations Immunization Administration Dates Next Due INFLUENZA (FLULAVAL, FLUARIX )_0.5mL QIV_IM (06mo+)([id number]) 12/04/2024 Pneumococcal Conjugate Vaccine (20-Valent) IM Family History Medical History Relation Name Comments Hyperlipidemia Father Fredrick Rodriguez Breast cancer Maternal Grandmother Fidelina Hernandez Breast cancer Mother Soraya Rodriguez Hearing loss Mother Soraya Rodriguez Vision loss Mother Soraya Rodriguez Breast cancer Paternal Grandmother Narciso Rodriguez Relation Name Status Comments Father Fredrick Rodriguez Maternal Grandmother Fidelina Hernandez Mother Soraya Rodriguez Paternal Grandmother Narciso Rodriguez Social History Tobacco Use Types Packs/Day Years Used Date Smoking Tobacco: Former Cigarettes 2 15 0 03/06/1980 - 1995 Smokeless Tobacco: Never Tobacco Cessation:Counseling Given: Not Answered Alcohol Use Standard Drinks/Week Comments Not Currently 0 (1 standard drink = 0.6 oz pur e alcohol) [facility] - Mental Health Answer Date Recorde d [...] Date Benito rded Speak language other than Chinese at home Not on file 03/15/2023 Want [...] Pressure 124/81 02/06/2025 10:06 AM EST Pulse 81 01/16/2025 9:55 AM EST Temperature 36.7 C (98 F) 01/16/2025 9:55 AM EST Respiratory Rate 16 01/16/2025 9:55 AM EST Oxygen Saturation 97% 01/16/2025 9:55 AM EST Inhaled Oxygen Concentration - - Weight 78.9 kg (174 lb) 02/06/2025 10:06 AM EST Height 174 cm (5' 8.5 ) 02/06/2025 10:06 AM EST Body Mass Index 26.07 02/06/2025 10:06 AM EST Plan of Treatment Upcoming Encounters Date Type Department Care Team (Late st Contact Info) Description 05/12/2025 10:00 AM EDT Office Visit [facility] [address] [place] [address] Ashleigh Ortiz, MEDICAL ESTHETICIAN [address] [place] [address] Health Maintenance Due Date Last Done Comments CT Colonography 1963 Colonoscopy 1963 Colorectal Cancer Screening 1963 FOBT/FIT 1963 Fit-DNA (Cologuard) 1963 Sigmoidoscopy 1963 HIV Screening 12/14/1978 Hepatitis C Screening 12/14/1981 Pap Smear 12/14/1984 Breast Cancer Screening 2003 Shingles Vaccine (Zoster) (2 of 2) 06/22/20182018 Respiratory Syncytial Virus (RSV) Adult or (1 - Risk 60-74 years 1-dose series) 2023 DTAP/TDAP/TD VACCINES (3 - T d or Tdap) 09/17/2024 09/17/2014, 05/11/2006 COVID-19 VACCINE ( season) 2024 01/08/2021, 04/10/2020, 03/10/2020 Tobacco Cessation Counseling and Screening (12+) 02/06/2026 02/06/2025 Lipid Panel 07/25/2027 07/24/2024 Pneumococcal 50+ years Completed 03/13/2024 Influenza Vaccine Completed 12/04/2024, 12/30/2021 Procedures Procedure Name Priority Date/Time Associated Diagnosis Comments VITAMIN B12 Routine 01/16/2025 10:40 AM EST Annual physical exam VITAMIN D, 25-HYDROXY Routine 01/16/2025 10:40 AM EST Annual physical exam Vitamin D deficiency CBC W/PLT COUNT & AUTO DIFFERENTIAL Routine 01/16/2025 10:40 AM EST Annual physical exam COMPREHENSIVE METABOLIC PANEL Routine 01/16/2025 10:40 AM EST Annual physical exam HEMOGLOBIN A1C Routine 01/16/2025 10:40 AM EST Annual physical exam SELENIUM\, SERUM/PLASMA Routine 01/08/2025 10:47 AM EST Hypothyroidism, unspecified type ESTRONE SULFATE Routine 01/08/2025 10:47 AM EST Menopause DHEA SULFATE Routine 01/08/2025 10:47 AM EST Menopause ESTRADIOL, SENSITIVE Routine 01/08/2025 10:47 AM EST Menopause PROGESTERONE Routine 01/08/2025 10:47 AM EST Menopause TESTOSTERONE, F EQLIB+T LC/MS Routine 01/08/2025 10:47 AM EST Menopause T3, REVERSE Routine 01/08/2025 10:47 AM EST Hypothyroidism, unspecified type IODINE, SERUM/PLASMA Routine 01/08/2025 10:47 AM EST Hypothyroidism, unspecified type ANTI-THYROGLOBULIN ANTIBODY Routine 01/08/2025 10:47 AM EST Hypothyroidism, unspecified type THYROID PEROXIDASE (TPO) ANTIBODY Routine 01/08/2025 10:47 AM EST Hypothyroidism, unspecified type NMR LIPOPROF WSUBCLS+GRAPH Routine 01/08/2025 10:47 AM EST Moderate mixed hyperlipidemia not requiring statin therapy LIPID PANEL Routine 07/24/2024 8:59 AM EDT Screening cholesterol level from Last 3 Months or Most Recently Relevant to Health Maintenance Results * Vitamin D, 25-Hydroxy (01/16/2025 10:40 AM EST) [facility] Vitamin D, 25-Hydroxy 56.8 30.0 - 100.0 ng/mL [facility] Comment: Vitamin D deficiency has been defined by the [place] of Medicine and an Endocrine Society practice guideline as a level of serum 25-OH vitamin D less than 20 ng/mL (1,2). The Endocrine Society went on to further define vitamin D insufficiency as a level between 21 and 29 ng/mL (2). 1. IOM ([place] of Medicine). 2010. Dietary reference intakes for calcium and D. [place]: The National Academies Press. 2. Corrina MF, Cedrick MONTERO, Rochelle MCKOY, et al. Evaluation, treatment, and prevention of vitamin D deficiency: an Endocrine Society clinical practice guideline. JCEM. 2010; 96(7):1911-30. Blood 01/16/2025 10:4 0 AM EST 01/16/2025 Narrative [facility] - 01/17/2025 7:07 AM EST Performed at: [address] [id number] Escrow Agent: Donald Ayers PhD, Phone: [phone] us Ashleigh Ortiz APRN LAB BLOOD ORDERABLES Jane hoskins Result [facility] * CBC with platelet count + automated diff (01/16/2025 10:40 AM EST) Pathologist [facility] WBC 6.8 3.4 - 10.8 x10E3/uL [facility] [...] 7:07 AM EST Performed at: 01 - [facility] [id number] Escrow Agent: Donald Ayers PhD, Phone: [phone] Ashleigh Ortiz APRN LAB BLOOD ORDERABLES Ajne l Result Performing Organization Address City/[facility] Co de Phone Number [facility] * Hemoglobin A1c (01/16/2025 10:40 AM EST) [facility] Hemoglobin A1c 5.1 4.8 - 5.6 % [facility] Comment: Prediabetes: 5.7 - 6.4 Diabetes: >6.4 Glycemic control for adults with diabetes: <7.0 Blood 01/16/2025 10:4 0 AM EST 01/16/2025 Narrative [facility] - 01/17/2025 7:07 AM EST Performed at: [address] [place] [id number] Escrow Agent: Donald Ayers PhD, Phone: [phone] Ashleigh Ortiz APRN LAB BLOOD ORDERABLES Jane l Result Performing Organization Address [facility] de Phone Number [facility] * Vitamin B12 (01/16/2025 10:40 AM EST) [facility] Vitamin B12 930 232 - 1,245 pg/mL [facility] Blood 01/16/2025 10:4 0 AM EST 01/16/2025 Narrative [facility] - 01/17/2025 7:07 AM EST Performed at: [facility] [address] [id number] Escrow Agent: Donald Ayers PhD, Phone: [phone] Ashleigh Ortiz APRN LAB BLOOD ORDERABLES Jane l Result Performing Organization Address [facility] de Phone Number [facility] * Comprehensive metabolic panel (01/16/2025 10:40 AM EST) [facility] Glucose, Serum 83 70 - 99 mg/dL [...] 7:07 AM EST Performed at: 01 - [address] [id number] Escrow Agent: Donald Ayers PhD, Phone: [phone] Ashleigh Ortiz APRN LAB BLOOD ORDERABLES Jane l Result [facility] * Estrone Sulfate (01/08/2025 10:47 AM EST) [facility] Estrone Sulfate([facility]) 116 ng/dL [facility] Comment: This test was developed and its [...] 12:07 PM EST Performed at: 02 - [facility] [address] [place] [id number] Escrow Agent: Michael Justice MD, Phone: [phone] [facility] LAB BLOOD ORDERABLES Final Res ult Performing Organization Address City/[facility]/ZIP Co de Phone Number [facility] * ESTRADIOL, SENSITIVE (01/08/2025 10:47 AM EST) Pathologist [facility] Estradiol, Sensitive 30.5 pg/mL [facility] Comment: Female: Follicular: 30.0 - 100.0 Luteal: 70.0 - 300.0 Postmenopausal: < 15.0 Methodology: Liquid chromatography tandem mass spectrometry(LC/MS/MS) Blood 01/08/2025 10:4 7 AM EST 01/08/2025 Narrative [facility] - 01/27/2025 12:07 PM EST Test(s) [id number], Sensitive was developed and its performance characteristics determined by [facility]. It has not been cleared or approved by the Food and Drug Administration. Performed at: - [address] [id number] Escrow Agent: Mari Hair MD, Phone: [phone] [facility] LAB BLOOD ORDERABLES Final Res ult Performing Organization Address City/[facility]/ZIP Co de Phone Number [facility] * (ABNORMAL) NMR LipoProf wSubCls+Graph (01/08/2025 [...] assessment. 01/08/2025 10:4 7 AM EST 01/08/2025 [facility] - 01/27/2025 12:07 PM EST Test(s) [id number]-J; 997699-PCT-X; 394776-Hylxifgsylkkh; 272542- Cholesterol, Total; 071068-KWE-M (Total); 748728-Iqkhm LDL-P; 282425- LDL Size; 709092-Mqeyi VLDL-P; 801300-Uyflz LDL-P; 964747-Kvkku HDL-P; 033254-NXTZ Size; 894632-LNJ Size; 430433-HBQ Size; 493821- LP-IR Score was developed and its performance characteristics determined by [employer]. It has not been cleared or approved by the Food and Drug Administration. Performed at: - [address] [id number] Escrow Agent: Mari Hair MD, Phone: [phone] [facility] BLOOD ORDERABLES Final Res ult Performing Organization Address [facility] de Phone Number [facility] * Testosterone, F Eqlib+T LC/MS (01/08/2025 10:47 AM EST) Testosterone, Total, LC/MS 18.6 7.0 - 40.0 ng/dL [facility] Testosterone, Free 0.31 0.10 - 0.85 ng/dL [facility] % Free Testosterone 1.67 0.50 - 2.80 % [facility] 01/08/2025 10:4 7 AM EST 01/08/2025 Narrative [facility] - 01/27/2025 12:07 PM EST Test(s) [id number], Total, LC/MS was developed and its performance characteristics determined by [facility]. It has not been cleared or approved by the Food and Drug Administration. Performed at: [address] [id number] Escrow Agent: Mari Hair MD, Phone: [phone] [facility] BLOOD ORDERABLES Final Res ult Performing Organization Address [facility] de Phone Number [facility] * IODINE, SERUM/PLASMA (01/08/2025 10:47 AM EST) Iodine, Serum or Plasma 58.4 31.1 - 64.6 ug/L [facility] Comment:Limit of quantitatio n = 20 Blood 01/08/2025 10:4 7 AM EST 01/08/2025 Narrative [facility] - 01/27/2025 12:07 PM EST Test(s) [id number]-Wvjvwd, Serum or Plasma was developed and its performance characteristics determined by [facility]. It has not been cleared or approved by the Food and Drug Administration. Performed at: [address] [id number] Escrow Agent: Mari Hair MD, Phone: [phone] [facility] LAB BLOOD ORDERABLES Final Res ult Performing Organization Address [facility] Co de Phone Number [facility] * SELENIUM\, SERUM/PLASMA (01/08/2025 10:47 AM EST) Pathologist [facility] Selenium, Serum/Plasma 129 93 - 198 ug/L [facility] Blood 01/08/2025 10:4 7 AM EST 01/08/2025 Narrative [facility] - 01/27/2025 12:07 PM EST Test(s) [id number], Serum/Plasma was developed and its performance characteristics determined [facility]. It has not been cleared or approved by the Food and Drug Administration. Performed at: [address] [id number] Escrow Agent: Mari Hair MD, Phone: [phone] [facility] LAB BLOOD ORDERABLES Final Res ult Performing Organization Address [facility] de Phone Number [facility] * Thyroid peroxidase (TPO) antibody (01/08/2025 10:47 AM EST) [facility] Thyroid Peroxidase (TPO) Ab <9 0 - 34 IU/mL [facility] Blood 01/08/2025 10:4 7 AM EST 01/08/2025 Narrative [facility] - 01/27/2025 12:07 PM EST Performed at: [address] [id number] Escrow Agent: Donald Ayers PhD, Phone: [phone] [facility] Messi DO LAB BLOOD ORDERABLES Final Res ult Performing Organization Address [facility] de Phone Number [facility] * Progesterone (01/08/2025 10:47 AM EST) Pathologist [facility] Progesterone 2.7 ng/mL [facility] Comment: Follicular phase 0.1 - 0.9 Luteal phase 1.8 - 23.9 Ovulation phase 0.1 - 12.0 First trimester 11.0 - 44.3 Second trimester 25.4 - 83.3 Third trimester 58.7 - 214.0 Postmenopausal 0.0 - 0.1 Blood 01/08/2025 10:4 7 AM EST 01/08/2025 Narrative [facility] - 01/27/2025 12:07 PM EST Performed at: [address] [place] [id number] Escrow Agent: Donald Ayers PhD, Phone: [phone] [facility] LAB BLOOD ORDERABLES Final Res ult Performing Organization Address City/[facility] Co de Phone Number [facility] * DHEA Sulfate (01/08/2025 10:47 AM EST) Pathologist [facility] DHEA-Sulfate 30.6 29.4 - 220.5 ug/dL [facility] Blood 01/08/2025 10:4 7 AM EST 01/08/2025 Narrative [facility] - 01/27/2025 12:07 PM EST Performed at: [address] [place] [id number] Escrow Agent: Donald Ayers PhD, Phone: [phone] [facility] LAB BLOOD ORDERABLES Final Res ult Performing Organization Address City/[facility] de Phone Number [facility] * Anti-thyroglobulin antibody (01/08/2025 10:47 AM EST) Pathologist [facility] Thyroglobulin Ab <1.0 0.0 - 0.9 IU/mL [facility] Comment: Thyroglobulin Antibody measured by [employer] Methodology It should be noted that the presence of thyroglobulin antibodies may not be pathogenic nor diagnostic, especially at very low levels. The assay cement mason helper has found that four percent of individuals without evidence of thyroid disease or autoimmunity will have positive TgAb levels up to 4 IU/mL. Blood 01/08/2025 10:4 7 AM EST 01/08/2025 Narrative [facility] - 01/27/2025 12:07 PM EST Performed at: [address] [id number] Escrow Agent: Donald Ayers PhD, Phone: [phone] Tamara Swenson LAB BLOOD ORDERABLES Final Res ult Performing Organization Address [facility] de Phone Number [facility] * T3, reverse (01/08/2025 10:47 AM EST) Reverse T3 12.1 9.2 - 24.1 ng/dL [facility] Blood 01/08/2025 10:4 7 AM EST 01/08/2025 Narrative [facility] - 01/27/2025 12:07 PM EST Test(s) [id number] T3, Serum was developed and its performance characteristics determined by [facility]. It has not been cleared or approved by the Food and Drug Administration. Performed at: [address] [id number] Escrow Agent: Mari Hair MD, Phone: [phone] Tamara Mccainley LAB BLOOD ORDERABLES Final Res ult Performing Organization Address [facility] Co de Phone Number [facility] * (ABNORMAL) Lipid panel (07/24/2024 8:59 AM EDT) [facility] Cholesterol, Total 251(H) 100 - 199 mg/dL [facility] Triglycerides 95 0 - 149 mg/dL [facility] HDL Cholesterol 73 >39 mg/dL [facility] VLDL Cholesterol Jp 16 5 - 40 mg/dL [facility] LDL Calculated 162(H) 0 - 99 mg/dL [facility] Blood 07/24/2024 8:59 AM EDT 07/24/2024 Narrative [facility] - 08/02/2024 8:07 PM EDT Performed at: [address] [id number] Escrow Agent: Donald Ayers PhD, Phone: [phone] Nova White DO LAB BLOOD ORDERABLES Final Resul t [facility] from Last 3 Months or Most Recently Relevant to Health Maintenance Insurance Care Teams Central Office Repairer Supervisor Relationship Specialty Start Date End Date Ashleigh Ortiz, MEDICAL ESTHETICIAN [address] [place] [address] PCP - General Family Medicine 01/16/25
--- OUTSIDE RECORDS SUMMARY | 2025-03-04 12:46 | XMS_ITS | Encounter Summary ---
Author Organization [employer] ([place], [place], [place], [place], [place]) Address [address] [place] [address] Care Team Providers Care Tennis Court Attendant Name Role Phone Kayden Ortiz APRN Primary Care Provider [phone] Reason for Visit * Reason Onset Date Comments REQUEST NEW REFERRAL 01/22/2025 Encounter Details Date Type Department Care Team (Late st Contact Info) Description 01/22/2025 Telephone [facility] [address] [place] [address] Kayden Ortiz APRN [address] [place] [address] REQUEST NEW REFERRAL Social History Tobacco Use Types Packs/Day Years Used Date Smoking Tobacco: Former Cigarettes 2 15 0 03/06/1980 - 1995 Smokeless Tobacco: Never Alcohol Use Standard Drinks/Week Comments Not Currently 0 (1 standard drink = 0.6 oz pur e alcohol) [facility] - Mental Health Answer Date Recorde [...] Date Benito rded Speak language other than Malay at home Not on file 03/15/2023 Want [...] on file documented as of this encounter Miscellaneous Notes * Telephone Encounter - Tamara Swenson DO - 01/22/2025 3:57 PM EST I think you ordered this as her pcp, I didn't order CLEANER * Telephone Encounter - Bot EST [employer] Crystal - 01/22/2025 2:23 PM EST FROM: Tika Rajput TO: [facility] SAULT CLINICAL SURGICAL DRESSING MAKER [[id number]] SUBJECT: Referral Request PROVIDER: KAYDEN ORTIZ [[id number]] DEPARTMENT: [facility] [employer] [facility] [[id number]] ENCOUNTER REASON FOR CALL: REQUEST NEW REFERRAL ENCOUNTER TYPE: Telephone CALLING TO: Request new referral TYPE OF REFERRAL/SPECIALTY (EX. DERMATOLOGY, IMAGING, ETC.): CT Lung REASON FOR REFERRAL/DIAGNOSIS: Former cigarette smoker REFERRAL REQUEST DISCUSSED WITH PROVIDER: Yes IF YES, WHEN WAS THE REFERRAL REQUEST DISCUSSED? 2025-01-16 PATIENT'S INSURANCE TYPE: Medicare NAME OF THE SPECIALIST BEING REQUESTED: DAVID SPECIALIST OFFICE OR PRACTICE LOCATION: [facility] HAS A FAX REQUEST BEEN SENT TO THE CLINIC? No UPCOMING APPOINTMENT WITH A SPECIALIST? No REFERRAL URGENCY ( DETERMINED BY INSURANCE/PROVIDER ONLY): Routine IS THIS A RECURRING REFERRAL OR RENEWAL OF PREVIOUS REFERRAL? No LAST VISIT DATE IS NOT APPLICABLE: Yes NEXT VISIT DATE IS NOT APPLICABLE: Yes MESSAGE PRIORITY: High ADDITIONAL INFORMATION: Central scheduling called due to referral alex because of how many years since patient smoked. Notable to contact clinic for assistance. Asking if provider wanted to send a new referral for a CT initial screening instead CALLER'S NAME: GAUTAM Central scheduling RELATION TO PATIENT: Provider [0] PREFERRED LANGUAGE: Malay BEST CALL BACK PHONE NUMBER: Home Phone: ([phone]) WHAT IS THE BEST WAY FOR THE OFFICE TO CONTACT YOU?: OK to leave message on voicemail CLEANER documented in this encounter Plan of Treatment Upcoming Encounters Date Type Department Care Team (Late st Contact Info) Description 05/12/2025 10:00 AM EDT Office Visit [facility] [address] [place] [id number] Kayden Ortiz APRN [address] [place] [address] documented as of this encounter Visit Diagnoses Not on filedocumented in this encounter Care Teams Tennis Court Attendant Relationship Specialty Start Date End Date Kayden Ortiz APRN [address] [place] [address] PCP - General Family Medicine 01/16/25 documented as of this encounter
--- OUTSIDE RECORDS SUMMARY | 2025-03-04 12:46 | XMS_ITS | Encounter Summary ---
Author Organization [facility] ([place], [place], [place], [place], [place]) Address [address] [place] [address] Care Team Providers Care Marketing Campaign Analyst Name Role Phone RocaelConcha Primary Care Provider [phone] Encounter Details Date Type Department Care Team (Latest Contact Info) Description 01/08/2025 Travel Social History Tobacco Use Types Packs/Day [...] Date Benito rded Speak language other than Setswana at home Not on file 03/15/2023 Want [...] on file documented as of this encounter Functional Status * Communicable Disease Screening Question Answer Date of Assessment Author Have you been in contact wit h someone who was sick? No / Unsure 01/08/2025 9:45 AM Gaviota Godinez Do you have any of the follo wing new or worsening symptoms? None of these 01/08/2025 9:45 AM Kelvin Godinez documented as of this encounter Plan of Treatment Upcoming Encounters Date Type Department Care Team (Late st Contact Info) Description 05/12/2025 10:00 AM EDT Office Visit [facility] [address] [place] [id number] Ashleigh Ortiz, TROY [address] [place] [address] documented as of this encounter Visit Diagnoses Not on filedocumented in this encounter Care Teams Marketing Campaign Analyst Relationship Specialty Start Date End Date Concha Cote DO [address] [place] [address] PCP - General Family Medicine 07/16/24 01/15/25 documented as of this encounter
--- OUTSIDE RECORDS SUMMARY | 2025-03-04 12:47 | XMS_ITS | Clinical Summary ---
Author Organization Healthcare Address [address] [place], [place] [id number] Care Team Providers Care Computer Field Technician Name Role Phone Gustavo Nuñez MD Primary Care Provider [phone] Family History Medical History Relation Name Comments [...] 12/14/2013 UKY-Zoster Vaccines (1 of 2) 12/14/2013 [id number]-98 Vaccine ( season) 2024 01/08/2021, 04/10/2020, 03/10/2020 UKY-Influenza Vaccine (#1) 2024 UKY-RSV Vaccine: 60+ Years o r (1 - 1-dose 75+ series) 12/14/2038 HPV Vaccines (No Doses Required) Completed UKY-HIB Vaccines Aged Out No longer e [...] age to complete [place] [address] [facility] Care Teams Computer Field Technician Relationship Specialty Start Date End Date Gustavo Nuñez MD [facility] [address] PCP - General 07/17/20
--- OUTSIDE RECORDS SUMMARY | 2025-03-04 12:47 | XMS_ITS | Clinical Summary ---
Author Organization [facility] Address [address] [place] [address] Care Team Providers Care Wiring Mechanic Name Role Phone Concha Cote DO Primary Care Provider [phone] Allergies No known active allergies Medications estradiol [...] CINNAMON PO Take by mouth Daily. Active [place]-3 Fatty Acids (OMEGA-3 CF PO) Take by [...] Date Degenerative arthritis of left knee 06/12/2023 Family History Medical History Relation Name Comments [...] ANNUAL PHYSICAL 04/06/2022 HEPATITIS C SCREENING 04/06/2022 INFLUENZA VACCINE 10/04/2024 12/04/2023, , 12/30/[address] [place] [address] [place] [address] Care Teams Wiring Mechanic Relationship Specialty Start Date End Date Concha Cote DO [address] [place] [address] PCP - General Family Medicine 08/30/24
--- OUTSIDE RECORDS SUMMARY | 2025-03-04 12:47 | XMS_ITS | Referral Summary ---
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 Role Phone Ashleigh Ortiz APRN Primary Care Provider [phone] Encounters Date Type Department Care Team Description 02/06/2025 10:15 AM EST Video - Telemedicine [facility] [address] [place] [address] Tamara Swenson DO Colon cancer screening (Primary Dx); Low testosterone level in female; Post menopausal syndrome; Other specified hypothyroidism; Mixed hyperlipidemia; Vitamin D deficiency; Menopause; Hormone replacement therapy 01/22/2025 Telephone [facility] [address] [address] Ashleigh Ortiz APRN REQUEST NEW REFERRAL 01/16/2025 10:00 AM EST Office Visit [facility] [address] [address] Ashleigh Ortiz APRN Annual physical exam (Primary Dx); Special screening for cancer of the respiratory organs; Former cigarette smoker; Vitamin D deficiency; Hypothyroidism; Post menopausal syndrome; Anxiety with depression; Mixed hyperlipidemia 01/08/2025 Travel 01/08/2025 10:00 AM EST Office Visit [facility] [address] [address] Tamara Swenson DO Colon cancer screening (Primary Dx); Atherosclerosis of osage coronary artery of osage heart without angina pectoris; Moderate mixed hyperlipidemia not requiring statin therapy; Hypothyroidism, unspecified type; Menopause; Hormone replacement therapy; Chronic pain syndrome from Last 3 Months Allergies Active Allergy Reactions Criticality Noted Date [...] Ashwaganda 1000mg [place] 500mg Vitamin e 670mg Croatian Ginseng 100mg . Active levothyroxine (SYNTHROID) 50 [...] Degenerative arthritis of left knee 06/12/2023 07/16/2024 Immunizations Immunization Administration Dates Next Due INFLUENZA (FLULAVAL, FLUARIX )_0.5mL QIV_IM (06mo+)([id number]) 12/04/2024 Pneumococcal Conjugate Vaccine (20-Valent) IM Social History Tobacco Use Types Packs/Day Years Used Date Smoking Tobacco: Former Cigarettes 2 15 0 03/06/1980 - 1995 Smokeless Tobacco: Never Tobacco Cessation:Counseling Given: Not Answered Alcohol Use Standard Drinks/Week Comments Not Currently 0 (1 standard drink = 0.6 oz pur e alcohol) [facility] - Mental Health Answer Date [...] Date Benito rded Speak language other than Mexican at home Not on file 03/15/2023 Want [...] Description 05/12/2025 10:00 AM EDT Office Visit [facility] [address] [place] [address] Ashleigh Ortiz, ETIOLOGIST [address] [place] [address] Procedures Procedure Name Priority Date/Time Associated [...] Vitamin D, 25-Hydroxy (01/16/2025 10:40 AM EST) [facility] Vitamin D, 25-Hydroxy 56.8 30.0 - 100.0 ng/mL [facility] Comment: Vitamin D deficiency has been defined by the [place] of Medicine and an Endocrine Society practice guideline as a level of serum 25-OH vitamin D less than 20 ng/mL (1,2). The Endocrine Society went on to further define vitamin D insufficiency as a level between 21 and 29 ng/mL (2). 1. IOM ([place] of Medicine). 2010. Dietary reference intakes for calcium and D. [place]: The National Academies Press. 2. Corrina MF, Cedrick [place], Rochelle MCKOY, et al. Evaluation, treatment, and prevention of vitamin D deficiency: an Endocrine Society clinical practice guideline. JCEM. 2010; 96(7):1911-30. Blood 01/16/2025 10:4 0 AM EST 01/16/2025 Narrative [facility] - 01/17/2025 7:07 AM EST Performed at: 01 - [facility] [address] [id number] Laboratory Animal Care Veterinarian: Donald Ayers PhD, Phone: [phone] Ashleigh Ortiz APRN LAB BLOOD ORDERABLES Jane hoskins Result [facility] * CBC with platelet count + automated diff (01/16/2025 10:40 AM EST) WBC 6.8 3.4 - 10.8 x10E3/uL [facility] [...] - 01/17/2025 7:07 AM EST Performed at: [address] [place] [id number] Laboratory Animal Care Veterinarian: Donald Ayers PhD, Phone: [phone] Ashleigh Ortiz APRN LAB BLOOD ORDERABLES Jane l Result Performing Organization Address [facility] Co de Phone Number [facility] * Hemoglobin A1c (01/16/2025 10:40 AM EST) Hemoglobin A1c 5.1 4.8 - 5.6 % [facility] Comment: Prediabetes: 5.7 - 6.4 Diabetes: >6.4 Glycemic control for adults with diabetes: <7.0 Blood 01/16/2025 10:4 0 AM EST 01/16/2025 Narrative [facility] - 01/17/2025 7:07 AM EST Performed at: [address] [place] [id number] Laboratory Animal Care Veterinarian: Donald Ayers PhD, Phone: [phone] Ashleigh Ortiz APRN LAB BLOOD ORDERABLES Jane l Result Performing Organization Address City/[facility]/ZIP Co de Phone Number [facility] * Vitamin B12 (01/16/2025 10:40 AM EST) Vitamin B12 930 232 - 1,245 pg/mL [facility] Blood 01/16/2025 10:4 0 AM EST 01/16/2025 Narrative [facility] - 01/17/2025 7:07 AM EST Performed at: 01 - [facility] [address] [id number] Laboratory Animal Care Veterinarian: Donald Ayers PhD, Phone: [phone] Ashleigh Ortiz APRN LAB BLOOD ORDERABLES Jane l Result Performing Organization Address [facility]/ZIP Co de Phone Number [facility] * Comprehensive metabolic panel (01/16/2025 10:40 AM EST) Glucose, Serum 83 70 - 99 mg/dL [...] 7:07 AM EST Performed at: 01 - [facility] [id number] Laboratory Animal Care Veterinarian: Donald Ayers PhD, Phone: [phone] us Ashleigh Ortiz APRN LAB BLOOD ORDERABLES Jane l Result Performing Organization Address [facility]/ZIP Co de Phone Number [facility] * Estrone Sulfate (01/08/2025 10:47 AM EST) Estrone Sulfate([facility]) 116 ng/dL [facility] Comment: This test was [...] 12:07 PM EST Performed at: 02 - [facility] [address] [place] [id number] Laboratory Animal Care Veterinarian: Michael Justice MD, Phone: [phone] [facility] BLOOD ORDERABLES Final Res ult Performing Organization Address [facility] de Phone Number [facility] * ESTRADIOL, SENSITIVE (01/08/2025 10:47 AM EST) Estradiol, Sensitive 30.5 pg/mL [facility] Comment: Female: Follicular: 30.0 - 100.0 Luteal: 70.0 - 300.0 Postmenopausal: < 15.0 Methodology: Liquid chromatography tandem mass spectrometry(LC/MS/MS) Blood 01/08/2025 10:4 7 AM EST 01/08/2025 Narrative [facility] - 01/27/2025 12:07 PM EST Test(s) [id number]-Qacldajhw, Sensitive was developed and its performance characteristics determined by [facility]. It has not been cleared or approved by the Food and Drug Administration. Performed at: - [address] [id number] Laboratory Animal Care Veterinarian: Mari Hair MD, Phone: [phone] [facility] LAB BLOOD ORDERABLES Final Res ult Performing Organization Address [facility]/ZIP Co de Phone Number [facility] * (ABNORMAL) [...] [facility] - 01/27/2025 12:07 PM EST Test(s) 358620-AEP-V; 462484-TPS-G; 879610-Rgaxcucnncfri; 663960- Cholesterol, Total; 649416-MLG-S (Total); 287046-Hsqbl LDL-P; 203334- LDL Size; 070926-Bsujn VLDL-P; 489988-Ahzhf LDL-P; 057769-Pmwtx HDL-P; 923172-DWEJ Size; 403970-INW Size; 407427-BUT Size; 030118- LP-IR Score was developed and its performance characteristics determined by [facility]. It has not been cleared or approved by the Food and Drug Administration. Performed at: - [facility] [id number] Laboratory Animal Care Veterinarian: Mari Hair MD, Phone: [phone] [facility] LAB BLOOD ORDERABLES Final Res ult Performing Organization Address [facility] de Phone Number [facility] * Testosterone, F Eqlib+T LC/MS (01/08/2025 10:47 AM EST) [facility] Testosterone, Total, LC/MS 18.6 7.0 - 40.0 ng/dL [facility] Testosterone, Free 0.31 0.10 - 0.85 ng/dL [facility] % Free Testosterone 1.67 0.50 - 2.80 % [facility] 01/08/2025 10:4 7 AM EST 01/08/2025 Narrative [facility] - 01/27/2025 12:07 PM EST Test(s) 593242-Synixrwsztaf, Total, LC/MS was developed and its performance characteristics determined by [facility]. It has not been cleared or approved by the Food and Drug Administration. Performed at: [facility] [id number] Laboratory Animal Care Veterinarian: Mari Hair MD, Phone: [phone] [facility] LAB BLOOD ORDERABLES Final Res ult Performing Organization Address [facility] de Phone Number [facility] * IODINE, SERUM/PLASMA (01/08/2025 10:47 AM EST) Iodine, Serum or Plasma 58.4 31.1 - 64.6 ug/L [facility] Comment:Limit of quantitatio n = 20 Blood 01/08/2025 10:4 7 AM EST 01/08/2025 Narrative [facility] - 01/27/2025 12:07 PM EST Test(s) 660811-Cgxdst, Serum or Plasma was developed and its performance characteristics determined by [facility]. It has not been cleared or approved by the Food and Drug Administration. Performed at: - [address] [id number] Laboratory Animal Care Veterinarian: Mari Hair MD, Phone: [phone] [facility] LAB BLOOD ORDERABLES Final Res ult Performing Organization Address [facility]/ZIP Co de Phone Number [facility] * SELENIUM\, SERUM/PLASMA (01/08/2025 10:47 AM EST) Selenium, Serum/Plasma 129 93 - 198 ug/L [facility] Blood 01/08/2025 10:4 7 AM EST 01/08/2025 Narrative [facility] - 01/27/2025 12:07 PM EST Test(s) 519005-Duzhbxux, Serum/Plasma was developed and its performance characteristics determined by [facility]. It has not been cleared or approved by the Food and Drug Administration. Performed at: - [address] [id number] Laboratory Animal Care Veterinarian: Mari Hair MD, Phone: [phone] [facility] BLOOD ORDERABLES Final Res ult Performing Organization Address City/[facility]/ZIP Co de Phone Number [facility] * Thyroid peroxidase (TPO) antibody (01/08/2025 10:47 AM EST) Thyroid Peroxidase (TPO) Ab <9 0 - 34 IU/mL [facility] Blood 01/08/2025 10:4 7 AM EST 01/08/2025 Narrative [facility] - 01/27/2025 12:07 PM EST Performed at: [address] [place] [id number] Laboratory Animal Care Veterinarian: Donald Ayers PhD, Phone: [phone] [facility] LAB BLOOD ORDERABLES Final Res ult Performing Organization Address [facility] Co de Phone Number [facility] * Progesterone (01/08/2025 10:47 AM EST) Progesterone 2.7 ng/mL [facility] Comment: Follicular phase 0.1 - 0.9 Luteal phase 1.8 - 23.9 Ovulation phase 0.1 - 12.0 First trimester 11.0 - 44.3 Second trimester 25.4 - 83.3 Third trimester 58.7 - 214.0 Postmenopausal 0.0 - 0.1 Blood 01/08/2025 10:4 7 AM EST 01/08/2025 Narrative [facility] - 01/27/2025 12:07 PM EST Performed at: [address] [place] [id number] Laboratory Animal Care Veterinarian: Donald Ayers PhD, Phone: [phone] [facility] LAB BLOOD ORDERABLES Final Res ult Performing Organization Address [facility] Phone Number [facility] * DHEA Sulfate (01/08/2025 10:47 AM EST) [facility] DHEA-Sulfate 30.6 29.4 - 220.5 ug/dL [facility] Blood 01/08/2025 10:4 7 AM EST 01/08/2025 Narrative [facility] - 01/27/2025 12:07 PM EST Performed at: [address] [place] [id number] Laboratory Animal Care Veterinarian: Donald Ayers PhD, Phone: [phone] [facility] Messi DO LAB BLOOD ORDERABLES Final Res ult Performing Organization Address City/[facility]/ZIP Co de Phone Number [facility] * Anti-thyroglobulin antibody (01/08/2025 10:47 AM EST) Pathologist [facility] Thyroglobulin Ab <1.0 0.0 - 0.9 IU/mL [facility] Comment: Thyroglobulin Antibody measured by Norris Aimee Methodology It should be noted that the presence of thyroglobulin antibodies may not be pathogenic nor diagnostic, especially at very low levels. The assay section crews activities clerk has found that four percent of individuals without evidence of thyroid disease or autoimmunity will have positive TgAb levels up to 4 IU/mL. Blood 01/08/2025 10:4 7 AM EST 01/08/2025 Narrative [facility] - 01/27/2025 12:07 PM EST Performed at: - [address] [id number] Laboratory Animal Care Veterinarian: Donald Ayers PhD, Phone: [phone] [facility] LAB BLOOD ORDERABLES Final Res ult Performing Organization Address [facility] de Phone Number [facility] * T3, reverse (01/08/2025 10:47 AM EST) [facility] Reverse T3 12.1 9.2 - 24.1 ng/dL [facility] Blood 01/08/2025 10:4 7 AM EST 01/08/2025 Narrative [facility] - 01/27/2025 12:07 PM EST Test(s) 766875-Yejlkxx T3, Serum was developed and its performance characteristics determined by [facility]. It has not been cleared or approved by the Food and Drug Administration. Performed at: [address] [id number] Laboratory Animal Care Veterinarian: Mari Hair MD, Phone: [phone] [facility] LAB BLOOD ORDERABLES Final Res ult Performing Organization Address City/[facility]/ZIP Co de Phone Number [facility] * (ABNORMAL) Lipid panel (07/24/2024 8:59 AM EDT) [facility] Cholesterol, Total 251(H) 100 - 199 mg/dL [facility] Triglycerides 95 0 - 149 mg/dL [facility] HDL Cholesterol 73 >39 mg/dL [facility] VLDL Cholesterol Jp 16 5 - 40 mg/dL [facility] LDL Calculated 162(H) 0 - 99 mg/dL [facility] Blood 07/24/2024 8:59 AM EDT 07/24/2024 Narrative [facility] - 08/02/2024 8:07 PM EDT Performed at: 01 - [facility] [address] [id number] Laboratory Animal Care Veterinarian: Donald Ayers PhD, Phone: [phone] us Nova White DO LAB BLOOD ORDERABLES Final Resul t [facility] from Last 3 Months or Most Recently Relevant to Health Maintenance Insurance Care Teams Hyperbaric Welder Diver Relationship Specialty Start Date End Date Ashleigh Ortiz, ETIOLOGIST [address] [place] [address] PCP - General Family Medicine 01/16/25
--- NOTE | 2025-03-04 12:51 | CT_ITS ---
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 A noncontrast coronary calcium scan was performed. A CT attenuation threshold of 130 Hounsfield units (HU) was used for the detection of calcium in contiguous voxels of 1 sq mm in area to be counted as individual lesions. A tube voltage of 120 KVp was used. The patient received no medications prior to the coronary calcium CT. Image Reconstruction Transaxial images were reconstructed at 0.67 mm slide thickness. Data was reviewed interactively on an advanced workstation capable of 2 and 3-dimensional displays in all conventional reconstruction formats, including multiplanar reformations, maximum intensity projections, curved multiplanar reformations, and volume rendered reconstructions. When applicable, selected routine images describing the relevant coronary anatomy and pathology were saved and sent to PACS. Complications None Technical Quality Overall image quality was good. Total DLP (Dose-Length Product) is 169 mGy-cm. The reported value represents the total of one or more individual components during the CT acquisition of this date and at this time, and as such, the same value may appear in more than one CT report depending on the interpreting/reporting physicians. COMPARISON None FINDINGS CT Coronary Calcium Scoring LMA (Left Main Artery) = 0 LAD (Left Anterior Descending) = 0 LCX (Left Coronary Circumflex) = 0 RCA (Right Coronary Artery) = 0 Total Calcium Score = 0 using the AJ-130 method. There is no identifiable calcification in the aortic valve, mitral annulus or mitral valve, pericardium, or myocardium. IMPRESSION -Coronary artery calcification is absent. -Total Calcium Score (Agatston Score) = 0 using the AJ-130 method. The interpretation of the calcium heart score is based on the following continuum*: 0 = no calcified plaque detected (risk of coronary artery disease is very low ??? less than 5%) 1-10 = calcium detected in extremely minimal levels (risk of coronary diseases is still low ??? less than 10%) 11-100 = mild levels of plaque detected with certainty (mild or minimal narrowing of heart arteries is likely) 101-400 = definite,at least moderate levels of plaque detected (relatively high risk of a heart attack within 3-5 years) >401-999 = extensive levels of plaque detected (high risk of heart attack, high levels of vascular disease are present, high likelihood of at least one significant coronary narrowing) *The calcium heart score quantifies the burden of coronary calcification/plaque in the coronary arteries. The calcium heart score does not evaluate the presence or the burden of non-calcified (i.e. soft) plaque. The coronary and cardiac findings of this Coronary Calcium CT were reviewed, reported, and signed by Malvin Giraldo MD (Director Of Child Welfare Services). Conclusion Electronically signed by : Cielo Giraldo MD 03/04/2025 18:08:45
== END 2025-03-04 23:59 | disposition home or self-care (01) ==
LOC: RAD 12:43
PROVIDERS: Visit Provider Family Medicine
DX: Z13.6 Encounter for screening for cardiovascular disorders (principal); E78.2 Mixed hyperlipidemia
CPT/HCPCS: 75571